=== PATIENT | female | born 1975 | race Caucasian/White ===

== ENCOUNTER 2017-10-14 12:44 | Emergency (ER) | payer MEDICAID ==
[2017-10-14] MEDS ORDERED: Sodium Chloride 0.9% 10 ML Syringe FLUSH PRN (14:10)
[2017-10-14] MEDS ORDERED: Iopamidol 612 MG/ML 100 ML Bottle IV PRN (14:10)
--- NOTE | 2017-10-14 14:14 | EDM.PDOC ---
ED HPI GENERAL MEDICAL PROBLEM - General Chief Complaint: Upper Extremity Injury/Pain Stated Complaint: LEFT NECK PAIN Time Seen by Provider: 10/14/17 13:00 Source of Information: Reports: Patient, Family History Limitations: Reports: No Limitations - History of Present Illness INITIAL COMMENTS - FREE TEXT/NARRATIVE: 42-year-old female who has been struggling with left anterior shoulder discomfort and swelling for the past month. It started when she was hyperflexing her shoulders and reaching across her chest when she felt a small sting in the left anterior shoulder. Since that time she has had persistent swelling and pain around the sternoclavicular joint on the left side extending up into the neck. No difficulty breathing. An x-ray of the left shoulder was normal at the clinic. She went to the chiropractor twice without relief. She called the clinic today to talk to them about her not improving and they sent her to the emergency room. She's had no redness, warmth, fever or ill feeling. Duration: Week(s): (4 weeks ago) Location: Reports: Chest (Left anterior chest and left shoulder) Severity: Moderate Worsens with: Reports: Movement Associated Symptoms: Reports: No Other Symptoms Left Shoulder Pain Score (Numeric/FACES): 7 - Related Data Allergies Allergy/AdvReac Type Severity Reaction Status Date / Time No Known Allergies Allergy Verified 11/28/15 11:40 Home Meds: Home Meds NK [No Known Home Meds] 11/28/15 [History] Past Medical History - Past Health History Medical/Surgical History: Denies Medical/Surgical History - Infectious Disease History Infectious Disease History: Reports: Chicken Pox - Past Surgical History Female Surgical History: Reports: Other (See Below) Other Female Surgeries/Procedures: past kidney failure with dialysis Social & Family History - Tobacco Use Smoking Status *Q: Never Smoker - Caffeine Use Caffeine Use: Reports: Soda - Alcohol Use Number of Drinks Per Day: 5 - Recreational Drug Use Recreational Drug Use: No Review of Systems - Review of Systems Review Of Systems: See Below Constitutional: Denies: Fever Respiratory: Denies: Shortness of Breath Cardiovascular: Reports: Chest Pain Musculoskeletal: Denies: Neck Pain Neurological: Reports: No Symptoms ED EXAM, GENERAL - Physical Exam Exam: See Below Exam Limited By: No Limitations General Appearance: Alert, No Apparent Distress, Other (Does display discomfort when moving her left arm) Head: Atraumatic Neck: Other (Slight amount of swelling noted over the distal left sternocleidomastoid area) Respiratory/Chest: No Respiratory Distress, Lungs Clear, Other (She has definite swelling and tenderness over the left sternoclavicular joint with tenderness extending down the medial aspect of the clavicle) Neurological: Alert, Oriented Skin Exam: Warm, Dry Course - Vital Signs Last Recorded V/S: Last Vital Signs Temp 99.9 F 10/14/17 12:54 Pulse 92 10/14/17 15:53 Resp 16 10/14/17 12:54 BP 138/93 H 10/14/17 15:53 Pulse Ox 98 10/14/17 15:53 - Orders/Labs/Meds Labs: Laboratory Tests 10/14/17 10/14/17 10/14/17 Range/Units 13:40 13:40 14:50 WBC 8.2 (4.5-11.0) K/uL RBC 4.16 (3.30-5.50) M/uL Hgb 12.7 D (12.0-15.0) g/dL Hct 38.2 (36.0-48.0) % MCV 92 (80-98) fL MCH 31 (27-31) pg MCHC 33 (32-36) % Plt Count 159 (150-400) K/uL Neut % (Auto) 69 H (36-66) % Lymph % (Auto) 18 L (24-44) % [place] % (Auto) 10 H (2-6) % Eos % (Auto) 3 (2-4) % Baso % (Auto) 1 (0-1) % Sodium 140 (140-148) mmol/L Potassium 3.7 (3.6-5.2) mmol/L Chloride 105 (100-108) mmol/L Carbon Dioxide 23 (21-32) mmol/L Anion Gap 12.2 (5.0-14.0) mmol/L BUN 16 (7-18) mg/dL Creatinine 0.9 (0.6-1.0) mg/dL Est Cr Clr Drug Dosing 71.78 mL/min Estimated GFR (MDRD) > 60 (>60) Glucose 104 (74-106) mg/dL Calcium 8.9 (8.5-10.1) mg/dL C-Reactive Protein 0.43 H (0.0-0.3) mg/dL Meds: Medications Discontinued Medications Generic Name Dose Route Start Last Admin Trade Name Lucia PRN Reason Stop Dose Admin Sodium Chloride 70 mls @ 3 mls/sec 10/14/17 14:10 10/14/17 14:32 Normal Saline IV 10/14/17 14:11 3 mls/sec ONETIME ONE Administration Iopamidol 100 ml 10/14/17 14:10 10/14/17 14:32 Isovue-300 (61%) IV 100 ml . DIRECTED PRN Administration RADIOLOGY EXAM Sodium Chloride 10 ml 10/14/17 14:10 10/14/17 14:24 Saline Flush FLUSH 10 ml ONETIME PRN Administration PER RADIOLOGY PROTOCOL - Re-Assessments/Exams Free Text/Narrative Re-Assessment/Exam: 10/14/17 15:43 CBC and BMP were obtained which were normal. This was followed by an IV enhanced contrast of the cervical soft tissue which revealed an erosive process of the sternoclavicular joint on the left side. This was discussed with her primary providers as well as Isak Zepeda of orthopedics and it was recommended she have an MRI of the area. Her CRP was 0.43, just slightly above normal. She was placed in a left arm sling which allowed her some comfort, and an MRI be ordered in the near future with results sent to both orthopedics and her primary care. Departure - Departure Time of Disposition: 15:52 Disposition: Home, Self-Care 01 Condition: Good Clinical Impression: Effusion of sternoclavicular joint - Discharge Information Instructions: Joint Pain, [id number] Referrals: Aureliano Pérez MD [Primary Care Provider] - Forms: ED Department Discharge Care Plan Goals: A regular dose of ibuprofen or naproxen would help if you are able to take these types of medications. Resting the shoulder in the sling may help and recheck after your MRI is obtained.
[2017-10-14 15:54] VITALS: BP 138/93
== END 2017-10-14 15:53 | disposition home or self-care (01) ==
LOC: JP.ED 12:44
DX: M25.412 Effusion, left shoulder (principal)
CPT/HCPCS: 36415; 70491; 80048; 85025; 86140; 99284; J7030; J7050; Q9967

== ENCOUNTER 2020-11-06 14:38 | Inpatient (IN) | payer MEDICAID ==
[2020-11-06] MEDS ORDERED: MVI, Adult with Vitamin K 10 ML, Thiamine 100 MG, Folic Acid 1 MG, Magnesium Sulfate 3 ... IV SCH ×5 (15:00)
--- NOTE | 2020-11-06 15:02 | EDM.PDOC ---
ED HPI GENERAL MEDICAL PROBLEM - General Chief Complaint: General Stated Complaint: MEDICAL VIA [facility] Time Seen by Provider: 11/06/20 14:45 Source of Information: Reports: Patient, EMS, Family, Old Records, RN History Limitations: Reports: Other (patient not able to provider any history currently.) - History of Present Illness INITIAL COMMENTS - FREE TEXT/NARRATIVE: 45 yo female with long standing alcohol abuse is brought in via EMS for altered LOC noted by family since she awoke today. Last drank yesterday afternoon. Has increased abdominal girth recently. Has unusual movement of her eyes today. No vomiting or fever. Not as alert as usual. 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 Onset: Today Onset Date: 11/06/20 Onset Time: 06:00 (first noticed at 0600h) Duration: Hour(s):, Constant Location: Reports: Head ( and eyes) Quality: Reports: Other (not reported) Severity: Severe Improves with: Reports: None Worsens with: Reports: Other (unsure, suspect alcohol abuse related) Context: Reports: Other (See HPI) Associated Symptoms: Reports: Confusion, Malaise. Denies: Diaphoresis, Fever/Chills, Nausea/Vomiting Treatments EX[employer]VATING [employer]OR: Reports: Other (see below) (none) - Related Data Allergies Allergy/AdvReac Type Severity Reaction Status Date / Time No Known Allergies Allergy Verified 11/06/20 14:51 Home Meds: Home Meds Omeprazole 20 mg PO DAILY 11/06/20 [History] Potassium Chloride [Klor-Con M20] 40 meq PO DAILY 11/06/20 [History] Past Medical History - Past Health History Medical/Surgical History: Denies Medical/Surgical History - Infectious Disease History Infectious Disease History: Reports: Chicken Pox - Past Surgical History Female Surgical History: Reports: Other (See Below) Other Female Surgeries/Procedures: past kidney failure with dialysis Social & Family History - Caffeine Use Caffeine Use: Reports: Soda ED ROS GENERAL - Review of Systems Review Of Systems: Unable To Obtain (due to altered LOC) Reason Not Obtained: altered LOC Constitutional: Reports: Malaise. Denies: Diaphoresis GI/Abdominal: Reports: Other (increased girth per ) Neurological: Reports: Other (eyes not moving normally) ED EXAM, GENERAL - Physical Exam Exam: See Below Exam Limited By: No Limitations General Appearance: Alert, WD/WN, Mild Distress Eye Exam: Bilateral Eye: EOMI (not able to follow commands) Ears: Normal External Exam, Normal Canal, Hearing Grossly Normal Ear Exam: Bilateral Ear: Auricle Normal, Canal Normal Nose: Normal Inspection, No Blood Throat/Mouth: Normal Oropharynx, Normal Voice, No Airway Compromise, Other (dry oral mucosa and lips) Head: Atraumatic, Normocephalic Neck: Normal Inspection Respiratory/Chest: No Respiratory Distress, Lungs Clear, Normal Breath Sounds, No Accessory Muscle Use Cardiovascular: Regular Rate, Rhythm, No Edema, Tachycardia GI/Abdominal: Distended, Other (? ascites) Back Exam: Normal Inspection. No: CVA Tenderness (R), CVA Tenderness (L) Extremities: Normal Inspection, Normal Range of Motion, Non-Tender, No Pedal Edema Neurological: Inattentive, Confused, Disoriented, Slow to Respond, Other (dysconjugate gaze noted). No: Alert, Oriented, CN II-XII Intact, Normal Cognition, Normal Gait Psychiatric: Flat Affect Skin Exam: Warm, Dry, Intact, Normal Color, No Rash Course - Vital Signs Text/Narrative:: Dr. Coley called @ 4797h Last Recorded V/S: Last Vital Signs Temp 36.6 C 11/06/20 14:56 Pulse 110 H 11/06/20 16:12 Resp 23 H 11/06/20 16:12 BP 150/94 H 11/06/20 16:12 Pulse Ox 93 L 11/06/20 16:12 - Orders/Labs/Meds Labs: Laboratory Tests 11/06/20 11/06/20 11/06/20 Range/Units 14:58 15:08 15:08 WBC 12.5 H (4.5-11.0) K/uL RBC 3.69 (3.30-5.50) M/uL Hgb 12.5 (12.0-15.0) g/dL Hct 37.0 (36.0-48.0) % MCV 100 H (80-98) fL MCH 34 H (27-31) pg MCHC 34 (32-36) % Plt Count 125 L (150-400) K/uL Sodium 141 (140-148) mmol/L Potassium 3.0 L (3.6-5.2) mmol/L Chloride 100 (100-108) mmol/L Carbon Dioxide 19 L (21-32) mmol/L Anion Gap 25.0 H (5.0-14.0) mmol/L BUN 27 H D (7-18) mg/dL Creatinine 1.3 H (0.6-1.0) mg/dL Est Cr Clr Drug Dosing 50.08 mL/min Estimated GFR (MDRD) 44 L (>60) Glucose 154 H (74-106) mg/dL Calcium 9.4 (8.5-10.1) mg/dL Magnesium (1.8-2.4) mg/dL Total Bilirubin 2.7 H D (0.2-1.0) mg/dL AST 102 H (15-37) U/L ALT 66 (12-78) U/L Alkaline Phosphatase 310 H (46-116) U/L Ammonia 29 (11-32) umol/L Total Protein 8.9 H (6.4-8.2) g/dL Albumin 2.8 L (3.4-5.0) g/dL Globulin 6.1 H (2.3-3.5) g/dL Albumin/Globulin Ratio 0.5 L (1.2-2.2) Ethyl Alcohol mg/dL 11/06/20 11/06/20 Range/Units 15:08 15:42 WBC (4.5-11.0) K/uL RBC (3.30-5.50) M/uL Hgb (12.0-15.0) g/dL Hct (36.0-48.0) % MCV (80-98) fL MCH (27-31) pg MCHC (32-36) % Plt Count (150-400) K/uL Sodium (140-148) mmol/L Potassium (3.6-5.2) mmol/L Chloride (100-108) mmol/L Carbon Dioxide (21-32) mmol/L Anion Gap (5.0-14.0) mmol/L BUN (7-18) mg/dL Creatinine (0.6-1.0) mg/dL Est Cr Clr Drug Dosing mL/min Estimated GFR (MDRD) (>60) Glucose (74-106) mg/dL Calcium (8.5-10.1) mg/dL Magnesium 2.0 (1.8-2.4) mg/dL Total Bilirubin (0.2-1.0) mg/dL AST (15-37) U/L ALT (12-78) U/L Alkaline Phosphatase (46-116) U/L Ammonia (11-32) umol/L Total Protein (6.4-8.2) g/dL Albumin (3.4-5.0) g/dL Globulin (2.3-3.5) g/dL Albumin/Globulin Ratio (1.2-2.2) Ethyl Alcohol < 3 mg/dL Meds: Medications Discontinued Medications Generic Name Dose Route Start Last Admin Trade Name Freq PRN Reason Stop Dose Admin Multivitamins/Minerals 10 ml/ 1,017.2 mls @ 500 mls/hr 11/06/20 15:15 11/06/20 15:53 Thiamine HCl 100 mg/ Folic IV 11/06/20 17:17 500 mls/hr Acid 1 mg/ Magnesium Sulfate 3 ASDIRECTED ONE Administration gm/ Sodium Chloride Potassium Chloride 20 meq/ 100 mls @ 50 mls/hr 11/06/20 15:37 11/06/20 15:54 Premix IV 11/06/20 17:36 50 mls/hr ONETIME ONE Administration Lorazepam 1 mg 11/06/20 15:38 11/06/20 15:55 Lorazepam 2 Mg/Ml Sdv IVPUSH 11/06/20 15:39 1 mg ONETIME ONE Administration - Radiology Interpretation Free Text/Narrative:: Head CT no contrast-IMPRESSION: No sign of acute injury to the brain. Mild diffuse cerebral and cerebellar atrophy, more prominent than expected for the patient`s age. Please note that all CT scans at this facility use dose modulation, iterative reconstruction, and/or weight-based dosing when appropriate to reduce radiation dose to as low as reasonably achievable. Dictated by Landon Madera MD @ 11/06/2020 4:39:[address] Results Date: 11/06/20 CT Results Time: 17:15 Departure - Departure Time of Disposition: 17:50 Disposition: Refer to Observation Condition: Fair Clinical Impression: Alcohol abuse, Alcoholic peripheral neuropathy, Mild dehydration Mental status alteration Qualifiers: Altered mental status type: delirium Qualified Code(s): R41.0 - Disorientation, unspecified Ascites Qualifiers: Ascites type: due to alcoholic cirrhosis Qualified Code(s): K70.31 - Alcoholic cirrhosis of liver with ascites - Discharge Information *PRESCRIPTION DRUG MONITORING PROGRAM REVIEWED*: Not Applicable *COPY OF PRESCRIPTION DRUG MONITORING REPORT IN PATIENT [place]: Not Applicable Referrals: PCP,None [Family Provider] - Forms: ED Department Discharge Sepsis Event Note (ED) - Focused Exam Vital Signs: Vital Signs Temp Pulse Resp BP Pulse Ox 11/06/20 16:12 110 H 23 H 150/94 H 93 L 11/06/20 15:48 108 H 22 H 170/113 H 11/06/20 15:33 106 H 23 H 170/102 H 11/06/20 15:18 111 H 19 170/102 H 11/06/20 15:03 114 H 22 H 164/104 H 95 11/06/20 14:56 36.6 C 108 H 19 152/97 H 97 11/06/20 14:48 120 H 24 H 152/97 H 96 11/06/20 14:38 36.6 C 126 H 26 H 156/102 H 94 L
[2020-11-06] MEDS ORDERED: MVI, Adult with Vitamin K 10 ML, Thiamine 100 MG, Folic Acid 1 MG, Magnesium Sulfate 3 ... IV ONE ×5 (15:15)
[2020-11-06] MEDS ORDERED: Potassium Chloride 20 MEQ in Premix Bag 1 BAG IV ONE (15:37)
[2020-11-06] MEDS ORDERED: LORazepam 2 MG/ML SDV IVPUSH ONE (15:38)
--- NOTE | 2020-11-06 16:42 | CRLCT ---
INDICATION: Neurologic change. Alcohol abuse. COMPARISON: None available. TECHNIQUE: CT examination of the head was performed with 3 mm thick axial and 2 millimeter thick sagittal and coronal sections without intravenous contrast. Images were obtained from the vertex of the skull through the skull base, and I examined the images with the brain and bone windows. Please note that all CT scans at this facility use dose modulation, iterative reconstruction, and/or weight-based dosing when appropriate to reduce radiation dose to as low as reasonably achievable. FINDINGS: : There is mild cerebral atrophy, with mild dilatation of the ventricles and sulci, more prominent than expected for the patient`s age. There is also mild cerebellar atrophy. The brain is otherwise normal in appearance for the patient`s age on today`s study, with no sign of mass lesion, mass effect, hemorrhage, or edema. The visualized portions of the orbits are normal in appearance. The visualized portions of the paranasal sinuses and mastoids are clear. The osseous structures are normal in their appearance with no sign of abnormality in the skull base or calvarium. IMPRESSION: No sign of acute injury to the brain. Mild diffuse cerebral and cerebellar atrophy, more prominent than expected for the patient`s age. Please note that all CT scans at this facility use dose modulation, iterative reconstruction, and/or weight-based dosing when appropriate to reduce radiation dose to as low as reasonably achievable. Dictated by Landon Madera MD @ 11/06/2020 4:39:[address] Landon Madera @ Nov 06 2020 4:39PM
--- NOTE | 2020-11-06 18:26 | PCM.HP.2 ---
H&P History of Present Illness - General Date of Service: 11/06/20 Admit Problem/Dx: Admission Diagnosis/Problem Admission Diagnosis/Problem Alcoholic hepatitis with ascites Source of Information: Family, Provider. No: Patient History Limitations: Reports: No Limitations - History of Present Illness Initial Comments - Free Text/Narative: CC: lethargic HPI: Crystal presents to the emergency room today after her found her unresponsive this morning. He reports that she was in her usual state of health last night at bedtime. I am not able to get any history from her because of confusion so history is gathered from her as well as emergency room personnel. Her does report that they have been ill lately with a flulike illness which includes upper respiratory symptoms, nausea and diarrhea. He reports that he was tested for Covid and this was negative. She has not been eating well for the last several days. She has not been drinking well either. He is not aware of any fevers. He does think that her abdomen has been more distended than usual. He does report that she has been drinking regular but this has been her usual amount of vodka. He was worried this morning that she may have had a seizure because her eyes seem to be pointed in different directions and she was very lethargic. He did not specifically see her shaking like she had a seizure. Work-up in the emergency room has revealed evidence for significant dehydration, acute kidney injury, hypokalemia and mild alcoholic hepatitis. The patient is more alert but still quite confused. She will be admitted for management of the above issues. - Related Data Allergies/Adverse Reactions: Allergies Allergy/AdvReac Type Severity Reaction Status Date / Time No Known Allergies Allergy Verified 11/06/20 14:51 Home Medications: Home Meds Omeprazole 20 mg PO DAILY 11/06/20 [History] Potassium Chloride [Klor-Con M20] 40 meq PO DAILY 11/06/20 [History] Past Medical History - Past Health History Medical/Surgical History: Denies Medical/Surgical History HEENT History: Reports: Impaired Vision Gastrointestinal History: Reports: GERD Psychiatric History: Reports: Addiction - Infectious Disease History Infectious Disease History: Reports: Chicken Pox - Past Surgical History Female Surgical History: Reports: Other (See Below) Other Female Surgeries/Procedures: past kidney failure with dialysis Social & Family History - Family History Family Medical History: Unobtainable (Patient very confused and does not answer) - Tobacco Use Tobacco Use Status *Q: Never Tobacco User - Caffeine Use Caffeine Use: Reports: None - Alcohol Use Days Per Week of Alcohol Use: 7 Number of Drinks Per Day: 5 Total Drinks Per Week: 35 Date of Last Drink: 11/05/20 Time of Last Drink: 16:00 - Recreational Drug Use Recreational Drug Use: No H&P Review of Systems - Review of Systems: Review Of Systems: Unable To Obtain Reason Not Obtained: Patient quite confused and unable to answer questions Exam - Exam Exam: See Below - Vital Signs Vital Signs: Last Vital Signs Temp 36.6 C 11/06/20 14:56 Pulse 110 H 11/06/20 16:12 Resp 23 H 11/06/20 16:12 BP 150/94 H 11/06/20 16:12 Pulse Ox 93 L 11/06/20 16:12 Weight: 83.915 kg - Exam Quality Assessment: Supplemental Oxygen General: Alert. No: Oriented, Cooperative, Mild Distress HEENT: Scleral Icterus (Mild). No: Conjunctiva Clear, Mucosa Moist & Cherry (Very dry) Neck: Supple, Trachea Midline Lungs: Clear to Auscultation, Normal Respiratory Effort Cardiovascular: Regular Rhythm, Tachycardia. No: Systolic Murmur GI/Abdominal Exam: Normal Bowel Sounds, Soft, Distended, Tender (Very mild generalized) Back Exam: Normal Inspection, Full Range of Motion Extremities: No Pedal Edema. No: Joint Swelling, Increased Warmth Peripheral Pulses: 2+: Dorsalis Pedis (L), Dorsalis Pedis (R) Skin: Warm, Dry. No: Rash Neuro Extensive - Mental Status: Alert, Memory Loss-Recent Events, Slow Response to Commands. No: Oriented x3 Neuro Extensive - Motor, Sensory, Reflexes: Dysarthria, Tremor (Tongue fasciculations), Other (No clonus). No: Abnormal Motor DTR: 1+: Bicep (L), Bicep (R), Patella (L), Patella (R) Psychiatric: Alert. No: Agitated - Patient Data Lab Results Last 24 hrs: Laboratory Results - last 24 hr 11/06/20 11/06/20 11/06/20 Range/Units 14:58 15:08 15:08 WBC 12.5 H (4.5-11.0) K/uL RBC 3.69 (3.30-5.50) M/uL Hgb 12.5 (12.0-15.0) g/dL Hct 37.0 (36.0-48.0) % MCV 100 H (80-98) fL MCH 34 H (27-31) pg MCHC 34 (32-36) % Plt Count 125 L (150-400) K/uL Sodium 141 (140-148) mmol/L Potassium 3.0 L (3.6-5.2) mmol/L Chloride 100 (100-108) mmol/L Carbon Dioxide 19 L (21-32) mmol/L Anion Gap 25.0 H (5.0-14.0) mmol/L BUN 27 H D (7-18) mg/dL Creatinine 1.3 H (0.6-1.0) mg/dL Est Cr Clr Drug Dosing 50.08 mL/min Estimated GFR (MDRD) 44 L (>60) Glucose 154 H (74-106) mg/dL Calcium 9.4 (8.5-10.1) mg/dL Magnesium (1.8-2.4) mg/dL Total Bilirubin 2.7 H D (0.2-1.0) mg/dL AST 102 H (15-37) U/L ALT 66 (12-78) U/L Alkaline Phosphatase 310 H (46-116) U/L Ammonia 29 (11-32) umol/L Total Protein 8.9 H (6.4-8.2) g/dL Albumin 2.8 L (3.4-5.0) g/dL Globulin 6.1 H (2.3-3.5) g/dL Albumin/Globulin Ratio 0.5 L (1.2-2.2) Ethyl Alcohol mg/dL 11/06/20 11/06/20 Range/Units 15:08 15:42 WBC (4.5-11.0) K/uL RBC (3.30-5.50) M/uL Hgb (12.0-15.0) g/dL Hct (36.0-48.0) % MCV (80-98) fL MCH (27-31) pg MCHC (32-36) % Plt Count (150-400) K/uL Sodium (140-148) mmol/L Potassium (3.6-5.2) mmol/L Chloride (100-108) mmol/L Carbon Dioxide (21-32) mmol/L Anion Gap (5.0-14.0) mmol/L BUN (7-18) mg/dL Creatinine (0.6-1.0) mg/dL Est Cr Clr Drug Dosing mL/min Estimated GFR (MDRD) (>60) Glucose (74-106) mg/dL Calcium (8.5-10.1) mg/dL Magnesium 2.0 (1.8-2.4) mg/dL Total Bilirubin (0.2-1.0) mg/dL AST (15-37) U/L ALT (12-78) U/L Alkaline Phosphatase (46-116) U/L Ammonia (11-32) umol/L Total Protein (6.4-8.2) g/dL Albumin (3.4-5.0) g/dL Globulin (2.3-3.5) g/dL Albumin/Globulin Ratio (1.2-2.2) Ethyl Alcohol < 3 mg/dL Result Diagrams: 11/06/20 15:08 11/06/20 15:08 Imaging Impressions Last 24 hrs: Head CT-images personally reviewed-there is mild atrophy and mild dilation of th e ventricles which is slightly greater than expected for the patient's age but no acute findings such as mass, stroke or bleed. Sepsis Event Note - Evaluation Sepsis Screening Result: No Definite Risk - Focused Exam Vital Signs: Vital Signs Temp Pulse Resp BP Pulse Ox 11/06/20 16:12 110 H 23 H 150/94 H 93 L 11/06/20 15:48 108 H 22 H 170/113 H 11/06/20 15:33 106 H 23 H 170/102 H 11/06/20 15:18 111 H 19 170/102 H 11/06/20 15:03 114 H 22 H 164/104 H 95 11/06/20 14:56 36.6 C 108 H 19 152/97 H 97 11/06/20 14:48 120 H 24 H 152/97 H 96 11/06/20 14:38 36.6 C 126 H 26 H 156/102 H 94 L *Q Meaningful Use (ADM) - VTE Risk Assess *Q Each Risk Factor Represents 1 Point: Age 41 - 59 years, Obesity ( BMI > 25 kg/m2) Total Score 1 Point Risk Factors: 2 Each Risk Factor Represents 2 Points: None Total Score 2 Point Risk Factors: 0 Each Risk Factor Represents 3 Points: None Total Score 3 Point Risk Factors: 0 Each Risk Factor Represents 5 Points: None Total Score 5 Point Risk Factors: 0 Venous Thromboembolism Risk Factor Score *Q: 2 - Problem List (1) Alcoholic hepatitis with ascites SNOMED Code(s): 5687022919292162 ICD Code: K70.11 - ALCOHOLIC HEPATITIS WITH ASCITES Status: Acute Current Visit: Yes (2) Acute kidney injury SNOMED Code(s): 75005957, 97339611 ICD Code: N17.9 - ACUTE KIDNEY FAILURE, UNSPECIFIED Status: Acute Current Visit: Yes (3) Acute hypoactive delirium due to another medical condition SNOMED Code(s): 7902545, 500718610, [id number] ICD Code: F05 - DELIRIUM DUE TO KNOWN PHYSIOLOGICAL CONDITION Status: Acute Current Visit: Yes (4) Hypokalemia SNOMED Code(s): 62176436 ICD Code: E87.6 - HYPOKALEMIA Status: Acute Current Visit: Yes Problem List Initiated/Reviewed/Updated: Yes Orders Last 24hrs: Active Orders 24 hr Category Date Time Status Patient Status Manage Transfer [TRANSFER] Routine ADT 11/06/20 18:17 Ordered Resuscitation Status Routine Resus Stat 11/06/20 18:19 Ordered Assessment/Plan Comment:: ASSESSMENT AND PLAN - Alcoholic hepatitis with ascites-seems to be mild at this time. Ammonia is normal. History of hepatic failure and did require dialysis at that time. Continues to drink regularly. Not severe enough for steroids at this time. -Abdominal ultrasound in the morning -Repeat labs in the morning -Additional management as below Alcohol abuse-persistent heavy use despite previous liver problems. I suspect that alcohol is contributing at least to some extent to her confusion and this could be Wernicke's or potentially Korsakoff syndrome. No strong evidence for alcohol withdrawal at this time but she is at a high risk given her daily use of vodka with large quantities. -Supplement thiamine and folate -INR in the morning -close monitoring for alcohol withdrawal Hypoactive delirium-probably multifactorial. She has a chronic daily alcohol user. No evidence for infection so far. Head CT showed some atrophy but nothing impressive. Examination benign other than the confusion. Not she is quite dehydrated. -Covid screen given potential symptoms -Urinalysis, culture if indicated -Optimize electrolytes and hydrate -Supplement thiamine and folate as above -TSH Hypokalemia-poor intake recently and also has had diarrhea. This is in addition to her alcohol use. -40 mEq IV piggyback this evening -Normal saline with potassium overnight -Labs in the morning Maintenance issues - -DVT prophylaxis-mechanical -GI prophylaxis-PPI -Nutrition-n.p.o. after midnight for ultrasound in the morning then low-sodium diet -Bates catheter-not indicated CODE STATUS -full code Admission justification -this patient will be admitted for inpatient services and is medically appropriate meeting medical necessity for inpatient admission as outlined in my documentation. I reasonably expect the patient will require inpatient services that span a period time over 2 midnights. I reasonably expect this patient to be discharged or transferred within 96 hours [facility]. Disposition -I anticipate discharge home after the hospital stay Primary care physician - Jack Coley M.D. - Mortality Measure Prognosis:: Poor
[2020-11-06] MEDS ORDERED: Magnesium Hydroxide 400 MG/5 ML Susp 30 ML Cup PO PRN (18:39)
[2020-11-06] MEDS ORDERED: LORazepam 1 MG Tab PO SCH (18:39)
[2020-11-06] MEDS ORDERED: Acetaminophen 325 MG Tab PO PRN (18:39)
[2020-11-06] MEDS ORDERED: Ondansetron 4 MG/2 ML SDV IV PRN (18:39)
[2020-11-06] MEDS ORDERED: LORazepam 2 MG/ML SDV IVPUSH PRN (18:39)
[2020-11-06] MEDS ORDERED: LORazepam 2 MG/ML SDV IV SCH (18:39)
[2020-11-06] MEDS ORDERED: Ondansetron 4 MG Tab.DIS PO PRN (18:39)
[2020-11-06 19:22] LABS: CORONAVIRUS COVID-19 NAA NEGATIVE (NEGATIVE)
[2020-11-06] MEDS: Potassium Chloride 100 ML IV SCH ×2 (19:46→21:22)
[2020-11-06] MEDS: Lidocaine 1% 20 ML MDV SCH ×2 (19:46→21:23)
[2020-11-06] MEDS: NS + KCl 20mEq/L 1,000 ML IV SCH (19:47)
[2020-11-06] MEDS: Melatonin 3 MG Tab PO SCH (21:23)
[2020-11-07] MEDS: NS + KCl 20mEq/L 1,000 ML IV SCH ×2 (03:57→15:20)
[2020-11-07] MEDS: Pantoprazole 40 MG Tab.CR PO SCH ×2 (08:26→16:47)
[2020-11-07] MEDS: cefTRIAXone 1 GM in Sodium Chloride 0.9% 50 ML IV SCH (08:27)
[2020-11-07] MEDS: Thiamine 100 MG Tab PO SCH (08:27)
[2020-11-07] MEDS: Folic Acid 1 MG Tab PO SCH (08:27)
--- NOTE | 2020-11-07 09:16 | PCM.PN ---
- General Info Date of Service: 11/07/20 Subjective Update: There were no acute events overnight and initially the patient was more clear and interactive today. Unfortunately as the morning progressed she became paranoid and was hallucinating. She developed tongue fasciculations and a fine tremor. These all seem to be consistent with alcohol withdrawal. Initially she reported she was feeling better but did not remember much of yesterday. She is not complaining of nausea or shortness of breath. Laboratory studies have all improved compared to yesterday. Functional Status: Reports: Pain Controlled - Review of Systems General: Denies: Fever Neurological: Reports: Confusion - Patient Data Vitals - Most Recent: Last Vital Signs Temp 37.3 C 11/07/20 08:00 Pulse 110 H 11/06/20 16:12 Resp 18 11/07/20 08:00 BP 119/72 11/07/20 08:00 Pulse Ox 90 L 11/07/20 08:00 Weight - Most Recent: 78.6 kg I&O - Last 24 Hours: Intake & Output 11/06/20 11/07/20 11/07/20 22:59 06:59 14:59 Intake Total 1094 Balance 1094 Lab Results Last 24 Hours: Laboratory Results - last 24 hr 11/06/20 11/06/20 11/06/20 Range/Units 14:58 15:08 15:08 WBC 12.5 H (4.5-11.0) K/uL RBC 3.69 (3.30-5.50) M/uL Hgb 12.5 (12.0-15.0) g/dL Hct 37.0 (36.0-48.0) % MCV 100 H (80-98) fL MCH 34 H (27-31) pg MCHC 34 (32-36) % Plt Count 125 L (150-400) K/uL PT (9.5-12.0) sec INR (0.80-1.20) Sodium 141 (140-148) mmol/L Potassium 3.0 L (3.6-5.2) mmol/L Chloride 100 (100-108) mmol/L Carbon Dioxide 19 L (21-32) mmol/L Anion Gap 25.0 H (5.0-14.0) mmol/L BUN 27 H D (7-18) mg/dL Creatinine 1.3 H (0.6-1.0) mg/dL Est Cr Clr Drug Dosing 50.08 mL/min Estimated GFR (MDRD) 44 L (>60) Glucose 154 H (74-106) mg/dL Calcium 9.4 (8.5-10.1) mg/dL Magnesium (1.8-2.4) mg/dL Total Bilirubin 2.7 H D (0.2-1.0) mg/dL AST 102 H (15-37) U/L ALT 66 (12-78) U/L Alkaline Phosphatase 310 H (46-116) U/L Ammonia 29 (11-32) umol/L Total Protein 8.9 H (6.4-8.2) g/dL Albumin 2.8 L (3.4-5.0) g/dL Globulin 6.1 H (2.3-3.5) g/dL Albumin/Globulin Ratio 0.5 L (1.2-2.2) TSH, Ultra Sensitive (0.358-3.740) uIU/mL Urine Color (YELLOW) Urine Appearance (CLEAR) Urine pH (5.0-8.0) Ur Specific Emerson (1.008-1.030) Urine Protein (NEGATIVE) mg/dL Urine Glucose (UA) (NEGATIVE) mg/dL Urine Ketones (NEGATIVE) mg/dL Urine Occult Blood (NEGATIVE) Urine Nitrite (NEGATIVE) Urine Bilirubin (NEGATIVE) Urine Urobilinogen (0.2-1.0) EU/dL Ur Leukocyte Esterase (NEGATIVE) Urine RBC (0-5) Urine WBC (0-5) Ur Epithelial Cells Amorphous Sediment Urine Bacteria Urine Mucus Ethyl Alcohol mg/dL Influenza Type A RNA (NEGATIVE) RSV RNA (INAAT) (NEGATIVE) Influenza Type B RNA (NEGATIVE) SARS-CoV-2 RNA (GILLIAN) (NEGATIVE) 11/06/20 11/06/20 11/06/20 Range/Units 15:08 15:42 18:50 WBC (4.5-11.0) K/uL RBC (3.30-5.50) M/uL Hgb (12.0-15.0) g/dL Hct (36.0-48.0) % MCV (80-98) fL MCH (27-31) pg MCHC (32-36) % Plt Count (150-400) K/uL PT (9.5-12.0) sec INR (0.80-1.20) Sodium (140-148) mmol/L Potassium (3.6-5.2) mmol/L Chloride (100-108) mmol/L Carbon Dioxide (21-32) mmol/L Anion Gap (5.0-14.0) mmol/L BUN (7-18) mg/dL Creatinine (0.6-1.0) mg/dL Est Cr Clr Drug Dosing mL/min Estimated GFR (MDRD) (>60) Glucose (74-106) mg/dL Calcium (8.5-10.1) mg/dL Magnesium 2.0 (1.8-2.4) mg/dL Total Bilirubin (0.2-1.0) mg/dL AST (15-37) U/L ALT (12-78) U/L Alkaline Phosphatase (46-116) U/L Ammonia (11-32) umol/L Total Protein (6.4-8.2) g/dL Albumin (3.4-5.0) g/dL Globulin (2.3-3.5) g/dL Albumin/Globulin Ratio (1.2-2.2) TSH, Ultra Sensitive (0.358-3.740) uIU/mL Urine Color (YELLOW) Urine Appearance (CLEAR) Urine pH (5.0-8.0) Ur Specific Emerson (1.008-1.030) Urine Protein (NEGATIVE) mg/dL Urine Glucose (UA) (NEGATIVE) mg/dL Urine Ketones (NEGATIVE) mg/dL Urine Occult Blood (NEGATIVE) Urine Nitrite (NEGATIVE) Urine Bilirubin (NEGATIVE) Urine Urobilinogen (0.2-1.0) EU/dL Ur Leukocyte Esterase (NEGATIVE) Urine RBC (0-5) Urine WBC (0-5) Ur Epithelial Cells Amorphous Sediment Urine Bacteria Urine Mucus Ethyl Alcohol < 3 mg/dL Influenza Type A RNA Negative (NEGATIVE) RSV RNA (INAAT) Negative (NEGATIVE) Influenza Type B RNA Negative (NEGATIVE) SARS-CoV-2 RNA (GILLIAN) Negative (NEGATIVE) 11/07/20 11/07/20 11/07/20 Range/Units 01:45 04:40 04:40 WBC 11.3 H (4.5-11.0) K/uL RBC 3.15 L (3.30-5.50) M/uL Hgb 10.5 L D (12.0-15.0) g/dL Hct 32.9 L (36.0-48.0) % MCV 104 H (80-98) fL MCH 33 H (27-31) pg MCHC 32 (32-36) % Plt Count 103 L (150-400) K/uL PT 13.4 H (9.5-12.0) sec INR 1.23 H (0.80-1.20) Sodium (140-148) mmol/L Potassium (3.6-5.2) mmol/L Chloride (100-108) mmol/L Carbon Dioxide (21-32) mmol/L Anion Gap (5.0-14.0) mmol/L BUN (7-18) mg/dL Creatinine (0.6-1.0) mg/dL Est Cr Clr Drug Dosing mL/min Estimated GFR (MDRD) (>60) Glucose (74-106) mg/dL Calcium (8.5-10.1) mg/dL Magnesium (1.8-2.4) mg/dL Total Bilirubin (0.2-1.0) mg/dL AST (15-37) U/L ALT (12-78) U/L Alkaline Phosphatase (46-116) U/L Ammonia (11-32) umol/L Total Protein (6.4-8.2) g/dL Albumin (3.4-5.0) g/dL Globulin (2.3-3.5) g/dL Albumin/Globulin Ratio (1.2-2.2) TSH, Ultra Sensitive (0.358-3.740) uIU/mL Urine Color [place] A (YELLOW) Urine Appearance Cloudy A (CLEAR) Urine pH 6.5 (5.0-8.0) Ur Specific Emerson 1.025 (1.008-1.030) Urine Protein Negative (NEGATIVE) mg/dL Urine Glucose (UA) Negative (NEGATIVE) mg/dL Urine Ketones Trace H (NEGATIVE) mg/dL Urine Occult Blood Negative (NEGATIVE) Urine Nitrite Negative (NEGATIVE) Urine Bilirubin Moderate H (NEGATIVE) Urine Urobilinogen >=8.0 H (0.2-1.0) EU/dL Ur Leukocyte Esterase Small H (NEGATIVE) Urine RBC 0-5 (0-5) Urine WBC 20-30 H (0-5) Ur Epithelial Cells Few Amorphous Sediment Not seen Urine Bacteria Many Urine Mucus Not seen Ethyl Alcohol mg/dL Influenza Type A RNA (NEGATIVE) RSV RNA (INAAT) (NEGATIVE) Influenza Type B RNA (NEGATIVE) SARS-CoV-2 RNA (GILLIAN) (NEGATIVE) 11/07/20 11/07/20 Range/Units 04:40 04:40 WBC (4.5-11.0) K/uL RBC (3.30-5.50) M/uL Hgb (12.0-15.0) g/dL Hct (36.0-48.0) % MCV (80-98) fL MCH (27-31) pg MCHC (32-36) % Plt Count (150-400) K/uL PT (9.5-12.0) sec INR (0.80-1.20) Sodium 146 (140-148) mmol/L Potassium 3.8 (3.6-5.2) mmol/L Chloride 108 (100-108) mmol/L Carbon Dioxide 27 (21-32) mmol/L Anion Gap 10.6 (5.0-14.0) mmol/L BUN 24 H (7-18) mg/dL Creatinine 0.8 (0.6-1.0) mg/dL Est Cr Clr Drug Dosing 81.38 mL/min Estimated GFR (MDRD) > 60 (>60) Glucose 112 H (74-106) mg/dL Calcium 8.6 (8.5-10.1) mg/dL Magnesium (1.8-2.4) mg/dL Total Bilirubin 2.0 H (0.2-1.0) mg/dL AST 85 H (15-37) U/L ALT 55 (12-78) U/L Alkaline Phosphatase 246 H (46-116) U/L Ammonia 18 (11-32) umol/L Total Protein 7.4 (6.4-8.2) g/dL Albumin 2.3 L (3.4-5.0) g/dL Globulin 5.1 H (2.3-3.5) g/dL Albumin/Globulin Ratio 0.5 L (1.2-2.2) TSH, Ultra Sensitive 3.240 (0.358-3.740) uIU/mL Urine Color (YELLOW) Urine Appearance (CLEAR) Urine pH (5.0-8.0) Ur Specific Emerson (1.008-1.030) Urine Protein (NEGATIVE) mg/dL Urine Glucose (UA) (NEGATIVE) mg/dL Urine Ketones (NEGATIVE) mg/dL Urine Occult Blood (NEGATIVE) Urine Nitrite (NEGATIVE) Urine Bilirubin (NEGATIVE) Urine Urobilinogen (0.2-1.0) EU/dL Ur Leukocyte Esterase (NEGATIVE) Urine RBC (0-5) Urine WBC (0-5) Ur Epithelial Cells Amorphous Sediment Urine Bacteria Urine Mucus Ethyl Alcohol mg/dL Influenza Type A RNA (NEGATIVE) RSV RNA (INAAT) (NEGATIVE) Influenza Type B RNA (NEGATIVE) SARS-CoV-2 RNA (GILLIAN) (NEGATIVE) Med Orders - Current: Current Medications Acetaminophen (Acetaminophen 325 Mg Tab) 650 mg PO Q4H PRN PRN Reason: Pain (Mild 1-3)/fever Folic Acid (Folic Acid 1 Mg Tab) 1 mg PO DAILY [facility] Last Admin: 11/07/20 08:27 Dose: 1 mg Documented by: Ceftriaxone Sodium 1 gm/ (Sodium Chloride) 50 mls @ 100 mls/hr IV Q24H [facility] Last Admin: 11/07/20 08:27 Dose: 100 mls/hr Documented by: Lorazepam (Lorazepam 2 Mg/Ml Sdv) 0.5 mg IVPUSH Q4H PRN PRN Reason: Nausea/Vomiting Magnesium Hydroxide (Magnesium Hydroxide 400 Mg/5 Ml Susp 30 Ml Cup) 30 ml PO Q12H PRN PRN Reason: Constipation Melatonin (Melatonin 3 Mg Tab) 9 mg PO BEDTIME [facility] Last Admin: 11/06/20 21:23 Dose: 9 mg Documented by: Ondansetron HCl (Ondansetron 4 Mg/2 Ml Sdv) 4 mg IV Q6H PRN PRN Reason: Nausea/Vomiting Last Admin: 11/06/20 18:50 Dose: 4 mg Documented by: Ondansetron HCl (Ondansetron 4 Mg Tab.Dis) 4 mg PO Q6H PRN PRN Reason: Nausea able to take PO Pantoprazole Sodium (Pantoprazole 40 Mg Tab.Cr) 40 mg PO BIDAC [facility] Last Admin: 11/07/20 08:26 Dose: 40 mg Documented by: Senna/Docusate Sodium (Docusate Sodium/Sennosides 50-8.6 Mg Tab) 1 tab PO BID PRN PRN Reason: Constipation Thiamine HCl (Thiamine 100 Mg Tab) 100 mg PO DAILY GREGORIO Last Admin: 11/07/20 08:27 Dose: 100 mg Documented by: Discontinued Medications Multivitamins/Minerals 10 ml/Thiamine HCl 100 mg/ Folic Acid 1 mg/ Magnesium Sulfate 3 gm/ Sodium Chloride 1,017.2 mls @ 500 mls/hr IV ASDIRECTED ONE Stop: 11/06/20 17:17 Last Admin: 11/06/20 15:53 Dose: 500 mls/hr Documented by: Potassium Chloride 20 meq/ (Premix) 100 mls @ 50 mls/hr IV ONETIME ONE Stop: 11/06/20 17:36 Last Admin: 11/06/20 15:54 Dose: 50 mls/hr Documented by: Potassium Chloride (Kcl In Water 20 Meq/100 Ml) 100 mls @ 50 mls/hr IV Q2H GREGORIO Stop: 11/06/20 22:59 Last Admin: 11/06/20 21:22 Dose: 50 mls/hr Documented by: Potassium Chloride/Sodium Chloride (Normal Saline With 20 Meq Kcl) 1,000 mls @ 100 mls/hr IV ASDIRECTED GREGORIO Last Admin: 11/07/20 03:57 Dose: 100 mls/hr Documented by: Lidocaine HCl (Lidocaine 1% 20 Ml Mdv) 2 ml .XX Q2H GREGORIO Stop: 11/06/20 21:01 Last Admin: 11/06/20 21:23 Dose: 2 ml Documented by: Lorazepam (Lorazepam 2 Mg/Ml Sdv) 1 mg IVPUSH ONETIME ONE Stop: 11/06/20 15:39 Last Admin: 11/06/20 15:55 Dose: 1 mg Documented by: Lorazepam (Lorazepam 1 Mg Tab) 0 mg PO ASDIRECTED GREGORIO; Protocol Lorazepam (Lorazepam 2 Mg/Ml Sdv) 0 mg IV ASDIRECTED RGEGORIO; Protocol - Exam Quality Assessment: Supplemental Oxygen General: Alert, Cooperative, No Acute Distress. No: Oriented HEENT: Pupils Equal Neck: Supple, Trachea Midline Lungs: Normal Respiratory Effort. No: Wheezing Cardiovascular: Regular Rhythm, Tachycardia GI/Abdominal Exam: Soft, Non-Tender Extremities: No Pedal Edema. No: Increased Warmth Skin: Warm, Dry Psy/Mental Status: Alert, Normal Affect. No: Agitated - Patient Data Lab Results Last 24 hrs: Laboratory Results - last 24 hr 11/06/20 11/06/20 11/06/20 Range/Units 14:58 15:08 15:08 WBC 12.5 H (4.5-11.0) K/uL RBC 3.69 (3.30-5.50) M/uL Hgb 12.5 (12.0-15.0) g/dL Hct 37.0 (36.0-48.0) % MCV 100 H (80-98) fL MCH 34 H (27-31) pg MCHC 34 (32-36) % Plt Count 125 L (150-400) K/uL PT (9.5-12.0) sec INR (0.80-1.20) Sodium 141 (140-148) mmol/L Potassium 3.0 L (3.6-5.2) mmol/L Chloride 100 (100-108) mmol/L Carbon Dioxide 19 L (21-32) mmol/L Anion Gap 25.0 H (5.0-14.0) mmol/L BUN 27 H D (7-18) mg/dL Creatinine 1.3 H (0.6-1.0) mg/dL Est Cr Clr Drug Dosing 50.08 mL/min Estimated GFR (MDRD) 44 L (>60) Glucose 154 H (74-106) mg/dL Calcium 9.4 (8.5-10.1) mg/dL Magnesium (1.8-2.4) mg/dL Total Bilirubin 2.7 H D (0.2-1.0) mg/dL AST 102 H (15-37) U/L ALT 66 (12-78) U/L Alkaline Phosphatase 310 H (46-116) U/L Ammonia 29 (11-32) umol/L Total Protein 8.9 H (6.4-8.2) g/dL Albumin 2.8 L (3.4-5.0) g/dL Globulin 6.1 H (2.3-3.5) g/dL Albumin/Globulin Ratio 0.5 L (1.2-2.2) TSH, Ultra Sensitive (0.358-3.740) uIU/mL Urine Color (YELLOW) Urine Appearance (CLEAR) Urine pH (5.0-8.0) Ur Specific Emerson (1.008-1.030) Urine Protein (NEGATIVE) mg/dL Urine Glucose (UA) (NEGATIVE) mg/dL Urine Ketones (NEGATIVE) mg/dL Urine Occult Blood (NEGATIVE) Urine Nitrite (NEGATIVE) Urine Bilirubin (NEGATIVE) Urine Urobilinogen (0.2-1.0) EU/dL Ur Leukocyte Esterase (NEGATIVE) Urine RBC (0-5) Urine WBC (0-5) Ur Epithelial Cells Amorphous Sediment Urine Bacteria Urine Mucus Ethyl Alcohol mg/dL Influenza Type A RNA (NEGATIVE) RSV RNA (INAAT) (NEGATIVE) Influenza Type B RNA (NEGATIVE) SARS-CoV-2 RNA (GILLIAN) (NEGATIVE) 11/06/20 11/06/20 11/06/20 Range/Units 15:08 15:42 18:50 WBC (4.5-11.0) K/uL RBC (3.30-5.50) M/uL Hgb (12.0-15.0) g/dL Hct (36.0-48.0) % MCV (80-98) fL MCH (27-31) pg MCHC (32-36) % Plt Count (150-400) K/uL PT (9.5-12.0) sec INR (0.80-1.20) Sodium (140-148) mmol/L Potassium (3.6-5.2) mmol/L Chloride (100-108) mmol/L Carbon Dioxide (21-32) mmol/L Anion Gap (5.0-14.0) mmol/L BUN (7-18) mg/dL Creatinine (0.6-1.0) mg/dL Est Cr Clr Drug Dosing mL/min Estimated GFR (MDRD) (>60) Glucose (74-106) mg/dL Calcium (8.5-10.1) mg/dL Magnesium 2.0 (1.8-2.4) mg/dL Total Bilirubin (0.2-1.0) mg/dL AST (15-37) U/L ALT (12-78) U/L Alkaline Phosphatase (46-116) U/L Ammonia (11-32) umol/L Total Protein (6.4-8.2) g/dL Albumin (3.4-5.0) g/dL Globulin (2.3-3.5) g/dL Albumin/Globulin Ratio (1.2-2.2) TSH, Ultra Sensitive (0.358-3.740) uIU/mL Urine Color (YELLOW) Urine Appearance (CLEAR) Urine pH (5.0-8.0) Ur Specific Emerson (1.008-1.030) Urine Protein (NEGATIVE) mg/dL Urine Glucose (UA) (NEGATIVE) mg/dL Urine Ketones (NEGATIVE) mg/dL Urine Occult Blood (NEGATIVE) Urine Nitrite (NEGATIVE) Urine Bilirubin (NEGATIVE) Urine Urobilinogen (0.2-1.0) EU/dL Ur Leukocyte Esterase (NEGATIVE) Urine RBC (0-5) Urine WBC (0-5) Ur Epithelial Cells Amorphous Sediment Urine Bacteria Urine Mucus Ethyl Alcohol < 3 mg/dL Influenza Type A RNA Negative (NEGATIVE) RSV RNA (INAAT) Negative (NEGATIVE) Influenza Type B RNA Negative (NEGATIVE) SARS-CoV-2 RNA (GILLIAN) Negative (NEGATIVE) 11/07/20 11/07/20 11/07/20 Range/Units 01:45 04:40 04:40 WBC 11.3 H (4.5-11.0) K/uL RBC 3.15 L (3.30-5.50) M/uL Hgb 10.5 L D (12.0-15.0) g/dL Hct 32.9 L (36.0-48.0) % MCV 104 H (80-98) fL MCH 33 H (27-31) pg MCHC 32 (32-36) % Plt Count 103 L (150-400) K/uL PT 13.4 H (9.5-12.0) sec INR 1.23 H (0.80-1.20) Sodium (140-148) mmol/L Potassium (3.6-5.2) mmol/L Chloride (100-108) mmol/L Carbon Dioxide (21-32) mmol/L Anion Gap (5.0-14.0) mmol/L BUN (7-18) mg/dL Creatinine (0.6-1.0) mg/dL Est Cr Clr Drug Dosing mL/min Estimated GFR (MDRD) (>60) Glucose (74-106) mg/dL Calcium (8.5-10.1) mg/dL Magnesium (1.8-2.4) mg/dL Total Bilirubin (0.2-1.0) mg/dL AST (15-37) U/L ALT (12-78) U/L Alkaline Phosphatase (46-116) U/L Ammonia (11-32) umol/L Total Protein (6.4-8.2) g/dL Albumin (3.4-5.0) g/dL Globulin (2.3-3.5) g/dL Albumin/Globulin Ratio (1.2-2.2) TSH, Ultra Sensitive (0.358-3.740) uIU/mL Urine Color [place] A (YELLOW) Urine Appearance Cloudy A (CLEAR) Urine pH 6.5 (5.0-8.0) Ur Specific Emerson 1.025 (1.008-1.030) Urine Protein Negative (NEGATIVE) mg/dL Urine Glucose (UA) Negative (NEGATIVE) mg/dL Urine Ketones Trace H (NEGATIVE) mg/dL Urine Occult Blood Negative (NEGATIVE) Urine Nitrite Negative (NEGATIVE) Urine Bilirubin Moderate H (NEGATIVE) Urine Urobilinogen >=8.0 H (0.2-1.0) EU/dL Ur Leukocyte Esterase Small H (NEGATIVE) Urine RBC 0-5 (0-5) Urine WBC 20-30 H (0-5) Ur Epithelial Cells Few Amorphous Sediment Not seen Urine Bacteria Many Urine Mucus Not seen Ethyl Alcohol mg/dL Influenza Type A RNA (NEGATIVE) RSV RNA (INAAT) (NEGATIVE) Influenza Type B RNA (NEGATIVE) SARS-CoV-2 RNA (GILLIAN) (NEGATIVE) 11/07/20 11/07/20 Range/Units 04:40 04:40 WBC (4.5-11.0) K/uL RBC (3.30-5.50) M/uL Hgb (12.0-15.0) g/dL Hct (36.0-48.0) % MCV (80-98) fL MCH (27-31) pg MCHC (32-36) % Plt Count (150-400) K/uL PT (9.5-12.0) sec INR (0.80-1.20) Sodium 146 (140-148) mmol/L Potassium 3.8 (3.6-5.2) mmol/L Chloride 108 (100-108) mmol/L Carbon Dioxide 27 (21-32) mmol/L Anion Gap 10.6 (5.0-14.0) mmol/L BUN 24 H (7-18) mg/dL Creatinine 0.8 (0.6-1.0) mg/dL Est Cr Clr Drug Dosing 81.38 mL/min Estimated GFR (MDRD) > 60 (>60) Glucose 112 H (74-106) mg/dL Calcium 8.6 (8.5-10.1) mg/dL Magnesium (1.8-2.4) mg/dL Total Bilirubin 2.0 H (0.2-1.0) mg/dL AST 85 H (15-37) U/L ALT 55 (12-78) U/L Alkaline Phosphatase 246 H (46-116) U/L Ammonia 18 (11-32) umol/L Total Protein 7.4 (6.4-8.2) g/dL Albumin 2.3 L (3.4-5.0) g/dL Globulin 5.1 H (2.3-3.5) g/dL Albumin/Globulin Ratio 0.5 L (1.2-2.2) TSH, Ultra Sensitive 3.240 (0.358-3.740) uIU/mL Urine Color (YELLOW) Urine Appearance (CLEAR) Urine pH (5.0-8.0) Ur Specific Emerson (1.008-1.030) Urine Protein (NEGATIVE) mg/dL Urine Glucose (UA) (NEGATIVE) mg/dL Urine Ketones (NEGATIVE) mg/dL Urine Occult Blood (NEGATIVE) Urine Nitrite (NEGATIVE) Urine Bilirubin (NEGATIVE) Urine Urobilinogen (0.2-1.0) EU/dL Ur Leukocyte Esterase (NEGATIVE) Urine RBC (0-5) Urine WBC (0-5) Ur Epithelial Cells Amorphous Sediment Urine Bacteria Urine Mucus Ethyl Alcohol mg/dL Influenza Type A RNA (NEGATIVE) RSV RNA (INAAT) (NEGATIVE) Influenza Type B RNA (NEGATIVE) SARS-CoV-2 RNA (GILLIAN) (NEGATIVE) Result Diagrams: 11/07/20 04:40 11/07/20 04:40 Sepsis Event Note - Evaluation Sepsis Screening Result: No Definite Risk - Focused Exam Vital Signs: Vital Signs Temp Resp BP Pulse Ox 11/07/20 08:00 37.3 C 18 119/72 90 L 11/07/20 06:00 20 124/81 91 L 11/07/20 04:00 36.9 C 20 117/72 94 L 11/07/20 02:00 18 115/73 92 L 11/07/20 00:00 36.5 C 20 118/66 92 L 11/06/20 22:00 20 119/73 93 L - Problem List & Annotations (1) Alcoholic hepatitis with ascites SNOMED Code(s): 4552551092027277 Code(s): K70.11 - ALCOHOLIC HEPATITIS WITH ASCITES Status: Acute Current Visit: Yes (2) Acute kidney injury SNOMED Code(s): 58873114, 95605393 Code(s): N17.9 - ACUTE KIDNEY FAILURE, UNSPECIFIED Status: Acute Current Visit: Yes (3) Acute hypoactive delirium due to another medical condition SNOMED Code(s): 4486430, 918765005, 288219900 Code(s): F05 - DELIRIUM DUE TO KNOWN PHYSIOLOGICAL CONDITION Status: Acute Current Visit: Yes (4) Hypokalemia SNOMED Code(s): 74137722 Code(s): E87.6 - HYPOKALEMIA Status: Acute Current Visit: Yes - Problem List Review Problem List Initiated/Reviewed/Updated: Yes - My Orders Last 24 Hours: My Active Orders 11/06/20 18:19 Resuscitation Status Routine 11/06/20 18:39 Acetaminophen [TylenoL] 650 mg PO Q4H PRN Docusate Sodium/Sennosides [Senna Plus] 1 tab PO BID PRN LORazepam [Ativan] 0.5 mg IVPUSH Q4H PRN Magnesium Hydroxide [Milk of Magnesia] 30 ml PO Q12H PRN Ondansetron [Zofran ODT] 4 mg PO Q6H PRN Ondansetron [Zofran] 4 mg IV Q6H PRN 11/06/20 18:39 Patient Status [ADT] Routine Antiembolic Devices [RC] .Routine Intake and Output [RC] QSHIFT Notify Provider Vital Signs [RC] ASDIRECTED Oxygen Therapy [RC] PRN Vital Signs [RC] Q4H Sequential Compression Device [OM.PC] Routine 11/06/20 21:00 Melatonin 9 mg PO BEDTIME 11/07/20 07:00 Abdomen Comp [US] Routine 11/07/20 07:30 Pantoprazole [ProTONIX] 40 mg PO BIDAC 11/07/20 07:58 CULTURE URINE [RM] Routine 11/07/20 Breakfast Regular Diet [DIET] 11/07/20 09:00 Folic Acid 1 mg PO DAILY Thiamine [Vitamin B-1] 100 mg PO DAILY cefTRIAXone [Rocephin] 1 gm Sodium Chloride 0.9% [Normal Saline] 50 ml IV Q24H 11/07/20 09:13 Transfer Patient (Change bed) [ADT] Routine PT Evaluation and Treatment [CONS] Routine 11/07/20 09:15 NS + KCl 20mEq/L [Normal Saline with 20 mEq KCl] 1,000 ml IV ASDIRECTED 11/08/20 05:00 CBC W/O DIFF,HEMOGRAM [HEME] Timed (1) COMPREHENSIVE METABOLIC PN,CMP [CHEM] Timed - Plan Plan:: ASSESSMENT AND PLAN - Alcohol withdrawal delirium-she has developed more of a hyperactive delirium at this time. She is paranoid and hallucinating. All of these are consistent with alcohol withdrawal and would fit with timing of last drink. -CIWA protocol with lorazepam -Gabapentin 400 mg 3 times a day for 5 days -Haldol for severe agitation -Melatonin at bedtime -Cardiac monitoring Alcoholic hepatitis without ascites-mild and seems to be improving. Ultrasound was unremarkable with no evidence for ascites. -Repeat labs in the morning -Additional management as below Alcohol abuse-persistent heavy use despite previous liver problems. She is now in florid alcohol withdrawal as discussed above. INR was mildly elevated. -Supplement thiamine and folate Possible urinary tract infection-moderate evidence to suggest infection. -Empiric ceftriaxone -Follow-up urine culture Hypokalemia-improved with supplementation. -Normal saline with potassium -Labs in the morning Maintenance issues - -DVT prophylaxis-mechanical -GI prophylaxis-PPI -Nutrition-regular diet as tolerated -Bates catheter-not indicated Disposition -I anticipate discharge home after the hospital stay Doug Coley M.D.
--- NOTE | 2020-11-07 09:17 | US ---
Abdomen Comp CLINICAL HISTORY: Abdominal pain, ascites COMPARISON: None. FINDINGS: The liver is free of mass or biliary dilatation. There is a diffuse increase parenchymal echogenicity. Liver measures 15.2 cm in length. Left lobe is not well seen.The gallbladder has a normal appearance. The common duct measures 5 mm. The pancreas is obscured. Right kidney measures 10.9 x 4.3 x 3.0 cm. Cortical thickness is 7 mm. Left kidney measures 10.8 x 4.1 x 5.6 cm. Cortical thickness is 1 cm..The aorta is obscured. The inferior vena cava is unremarkable. The spleen is mildly enlarged at 13 cm in length. IMPRESSION: Diffuse fatty infiltration of the liver Splenomegaly No evidence of ascites Pancreas is obscured There is some cortical thinning in both kidneys right greater than left
[2020-11-07] MEDS ORDERED: Haloperidol Lactate 5 MG/ML SDV IVPUSH PRN (12:56)
[2020-11-07] MEDS: LORazepam 1 MG Tab PO PRN ×2 (13:07→14:07)
[2020-11-07] MEDS: Gabapentin 400 MG Cap PO SCH ×2 (13:07→21:34)
[2020-11-07] MEDS: LORazepam 2 MG/ML SDV IV PRN (15:09)
[2020-11-07] MEDS: Melatonin 3 MG Tab PO SCH (21:33)
[2020-11-08] MEDS: LORazepam 2 MG/ML SDV IV PRN ×3 (02:57→20:19)
[2020-11-08] MEDS: NS + KCl 20mEq/L 1,000 ML IV SCH ×2 (04:42→17:39)
[2020-11-08] MEDS: Gabapentin 400 MG Cap PO SCH ×4 (07:17→20:17)
[2020-11-08] MEDS: Thiamine 100 MG Tab PO SCH ×2 (07:17→08:05)
[2020-11-08] MEDS: Folic Acid 1 MG Tab PO SCH ×2 (07:17→08:05)
[2020-11-08] MEDS: Pantoprazole 40 MG Tab.CR PO SCH ×2 (07:17→17:22)
[2020-11-08] MEDS: LORazepam 1 MG Tab PO PRN ×3 (07:21→14:08)
[2020-11-08] MEDS: cefTRIAXone 1 GM in Sodium Chloride 0.9% 50 ML IV SCH (08:05)
--- NOTE | 2020-11-08 08:51 | PCM.PN ---
- General Info Date of Service: 11/08/20 Subjective Update: There were no acute events overnight. Patient does continue to have difficulty with alcohol withdrawal including hallucinations. She is seeing animals spread throughout her room. Intermittently she has some difficulty with agitation. She has received several doses of lorazepam, both IV and oral. She is alert and interactive but think she is in [place], [place]. She has no idea what year it is. She did not remember who I was. She does not report nausea or shortness of breath. No headache. Functional Status: Reports: Pain Controlled, Tolerating Diet - Review of Systems General: Denies: Fever Neurological: Reports: Confusion Psychiatric: Reports: Hallucinations - Patient Data Vitals - Most Recent: Last Vital Signs Temp 36.6 C 11/08/20 07:23 Pulse 103 H 11/08/20 07:23 Resp 14 11/08/20 07:23 BP 114/70 11/08/20 07:23 Pulse Ox 93 L 11/08/20 07:23 Weight - Most Recent: 78.6 kg I&O - Last 24 Hours: Intake & Output 11/07/20 11/08/20 11/08/20 22:59 06:59 14:59 Intake Total 1091 150 Output Total 250 Balance 1091 -250 150 Lab Results Last 24 Hours: Laboratory Results - last 24 hr 11/08/20 11/08/20 Range/Units 05:30 05:30 WBC 9.5 (4.5-11.0) K/uL RBC 2.94 L (3.30-5.50) M/uL Hgb 9.7 L (12.0-15.0) g/dL Hct 31.0 L (36.0-48.0) % MCV 105 H (80-98) fL MCH 33 H (27-31) pg MCHC 31 L (32-36) % Plt Count 98 L (150-400) K/uL Sodium 146 (140-148) mmol/L Potassium 3.8 (3.6-5.2) mmol/L Chloride 110 H (100-108) mmol/L Carbon Dioxide 23 (21-32) mmol/L Anion Gap 16.8 H (5.0-14.0) mmol/L BUN 13 (7-18) mg/dL Creatinine 0.7 (0.6-1.0) mg/dL Est Cr Clr Drug Dosing 93.52 mL/min Estimated GFR (MDRD) > 60 (>60) Glucose 90 (74-106) mg/dL Calcium 8.4 L (8.5-10.1) mg/dL Total Bilirubin 1.6 H (0.2-1.0) mg/dL AST 89 H (15-37) U/L ALT 55 (12-78) U/L Alkaline Phosphatase 221 H (46-116) U/L Total Protein 6.8 (6.4-8.2) g/dL Albumin 2.1 L (3.4-5.0) g/dL Globulin 4.7 H (2.3-3.5) g/dL Albumin/Globulin Ratio 0.5 L (1.2-2.2) Enrrique Results Last 24 Hours: Microbiology 11/07/20 07:58 Urine Culture - Preliminary Urine, Clean Catch Med Orders - Current: Current Medications Acetaminophen (Acetaminophen 325 Mg Tab) 650 mg PO Q4H PRN PRN Reason: Pain (Mild 1-3)/fever Folic Acid (Folic Acid 1 Mg Tab) 1 mg PO DAILY [facility] Last Admin: 11/08/20 08:05 Dose: Not Given Documented by: Gabapentin (Gabapentin 400 Mg Cap) 400 mg PO TID [facility] Last Admin: 11/08/20 08:05 Dose: Not Given Documented by: Haloperidol Lactate (Haloperidol Lactate 5 Mg/Ml Sdv) 2 mg IVPUSH Q4H PRN PRN Reason: severe agitation Ceftriaxone Sodium 1 gm/ (Sodium Chloride) 50 mls @ 100 mls/hr IV Q24H [facility] Last Admin: 11/08/20 08:05 Dose: 100 mls/hr Documented by: Potassium Chloride/Sodium Chloride (Normal Saline With 20 Meq Kcl) 1,000 mls @ 75 mls/hr IV ASDIRECTED [facility] Last Admin: 11/08/20 04:42 Dose: 75 mls/hr Documented by: Lorazepam (Lorazepam 2 Mg/Ml Sdv) 0.5 mg IVPUSH Q4H PRN PRN Reason: Nausea/Vomiting Lorazepam (Lorazepam 1 Mg Tab) 0 mg PO ASDIRECTED PRN; Protocol PRN Reason: Withdrawal Symptoms Last Admin: 11/08/20 07:21 Dose: 2 mg Documented by: Lorazepam (Lorazepam 2 Mg/Ml Sdv) 0 mg IV ASDIRECTED PRN; Protocol PRN Reason: Withdrawal Symptoms Last Admin: 11/08/20 02:57 Dose: 1 mg Documented by: Magnesium Hydroxide (Magnesium Hydroxide 400 Mg/5 Ml Susp 30 Ml Cup) 30 ml PO Q12H PRN PRN Reason: Constipation Melatonin (Melatonin 3 Mg Tab) 9 mg PO BEDTIME [facility] Last Admin: 11/07/20 21:33 Dose: Not Given Documented by: Ondansetron HCl (Ondansetron 4 Mg/2 Ml Sdv) 4 mg IV Q6H PRN PRN Reason: Nausea/Vomiting Last Admin: 11/06/20 18:50 Dose: 4 mg Documented by: Ondansetron HCl (Ondansetron 4 Mg Tab.Dis) 4 mg PO Q6H PRN PRN Reason: Nausea able to take PO Pantoprazole Sodium (Pantoprazole 40 Mg Tab.Cr) 40 mg PO BIDAC [facility] Last Admin: 11/08/20 07:17 Dose: 40 mg Documented by: Senna/Docusate Sodium (Docusate Sodium/Sennosides 50-8.6 Mg Tab) 1 tab PO BID PRN PRN Reason: Constipation Thiamine HCl (Thiamine 100 Mg Tab) 100 mg PO DAILY [facility] Last Admin: 11/08/20 08:05 Dose: Not Given Documented by: Discontinued Medications Multivitamins/Minerals 10 ml/Thiamine HCl 100 mg/ Folic Acid 1 mg/ Magnesium Sulfate 3 gm/ Sodium Chloride 1,017.2 mls @ 500 mls/hr IV ASDIRECTED ONE Stop: 11/06/20 17:17 Last Admin: 11/06/20 15:53 Dose: 500 mls/hr Documented by: Potassium Chloride 20 meq/ (Premix) 100 mls @ 50 mls/hr IV ONETIME ONE Stop: 11/06/20 17:36 Last Admin: 11/06/20 15:54 Dose: 50 mls/hr Documented by: Potassium Chloride (Kcl In Water 20 Meq/100 Ml) 100 mls @ 50 mls/hr IV Q2H [facility] Stop: 11/06/20 22:59 Last Admin: 11/06/20 21:22 Dose: 50 mls/hr Documented by: Potassium Chloride/Sodium Chloride (Normal Saline With 20 Meq Kcl) 1,000 mls @ 100 mls/hr IV ASDIRECTED [facility] Last Infusion: 11/07/20 09:47 Dose: 75 mls/hr Documented by: Lidocaine HCl (Lidocaine 1% 20 Ml Mdv) 2 ml .XX Q2H [facility] Stop: 11/06/20 21:01 Last Admin: 11/06/20 21:23 Dose: 2 ml Documented by: Lorazepam (Lorazepam 2 Mg/Ml Sdv) 1 mg IVPUSH ONETIME ONE Stop: 11/06/20 15:39 Last Admin: 11/06/20 15:55 Dose: 1 mg Documented by: Lorazepam (Lorazepam 1 Mg Tab) 0 mg PO ASDIRECTED [facility]; Protocol Lorazepam (Lorazepam 2 Mg/Ml Sdv) 0 mg IV ASDIRECTED [facility]; Protocol - Exam Quality Assessment: Supplemental Oxygen General: Alert, Cooperative, No Acute Distress. No: Oriented HEENT: Pupils Equal Neck: Supple Lungs: Clear to Auscultation, Normal Respiratory Effort Cardiovascular: Regular Rhythm, Tachycardia GI/Abdominal Exam: Normal Bowel Sounds, Soft, Non-Tender, Distended Extremities: No Pedal Edema. No: Increased Warmth Skin: Warm, Dry Psy/Mental Status: Alert, Hallucinations (animals). No: Agitated - Patient Data Lab Results Last 24 hrs: Laboratory Results - last 24 hr 11/08/20 11/08/20 Range/Units 05:30 05:30 WBC 9.5 (4.5-11.0) K/uL RBC 2.94 L (3.30-5.50) M/uL Hgb 9.7 L (12.0-15.0) g/dL Hct 31.0 L (36.0-48.0) % MCV 105 H (80-98) fL MCH 33 H (27-31) pg MCHC 31 L (32-36) % Plt Count 98 L (150-400) K/uL Sodium 146 (140-148) mmol/L Potassium 3.8 (3.6-5.2) mmol/L Chloride 110 H (100-108) mmol/L Carbon Dioxide 23 (21-32) mmol/L Anion Gap 16.8 H (5.0-14.0) mmol/L BUN 13 (7-18) mg/dL Creatinine 0.7 (0.6-1.0) mg/dL Est Cr Clr Drug Dosing 93.52 mL/min Estimated GFR (MDRD) > 60 (>60) Glucose 90 (74-106) mg/dL Calcium 8.4 L (8.5-10.1) mg/dL Total Bilirubin 1.6 H (0.2-1.0) mg/dL AST 89 H (15-37) U/L ALT 55 (12-78) U/L Alkaline Phosphatase 221 H (46-116) U/L Total Protein 6.8 (6.4-8.2) g/dL Albumin 2.1 L (3.4-5.0) g/dL Globulin 4.7 H (2.3-3.5) g/dL Albumin/Globulin Ratio 0.5 L (1.2-2.2) Result Diagrams: 11/08/20 05:30 11/08/20 05:30 Enrrique Results Last 24 hrs: Microbiology 11/07/20 07:58 Urine Culture - Preliminary Urine, Clean Catch Sepsis Event Note - Evaluation Sepsis Screening Result: No Definite Risk - Focused Exam Vital Signs: Vital Signs Temp Pulse Resp BP Pulse Ox 11/08/20 07:23 36.6 C 103 H 14 114/70 93 L 11/08/20 05:00 37.1 C 17 124/71 92 L 11/08/20 03:00 36.5 C 19 106/53 L 92 L 11/08/20 01:00 36.9 C 18 121/71 99 11/07/20 23:00 18 94/62 96 11/07/20 21:00 36.7 C 17 121/88 97 - Problem List & Annotations (1) Alcohol withdrawal delirium, acute, hyperactive SNOMED Code(s): 8393701, 96377483, 58466939958904526 Code(s): F10.231 - ALCOHOL DEPENDENCE WITH WITHDRAWAL DELIRIUM Status: Acute Current Visit: Yes (2) Alcoholic hepatitis with ascites SNOMED Code(s): 3028303291432032 Code(s): K70.11 - ALCOHOLIC HEPATITIS WITH ASCITES Status: Acute Current Visit: Yes (3) Acute kidney injury SNOMED Code(s): 07466879, 75711665 Code(s): N17.9 - ACUTE KIDNEY FAILURE, UNSPECIFIED Status: Acute Current Visit: Yes (4) Acute hypoactive delirium due to another medical condition SNOMED Code(s): 3437500, 487873719, 727471351 Code(s): F05 - DELIRIUM DUE TO KNOWN PHYSIOLOGICAL CONDITION Status: Acute Current Visit: Yes (5) Hypokalemia SNOMED Code(s): 74509508 Code(s): E87.6 - HYPOKALEMIA Status: Acute Current Visit: Yes - Problem List Review Problem List Initiated/Reviewed/Updated: Yes - My Orders Last 24 Hours: My Active Orders 11/07/20 07:58 CULTURE URINE [RM] Routine 11/07/20 Breakfast Regular Diet [DIET] 11/07/20 09:00 Folic Acid 1 mg PO DAILY Thiamine [Vitamin B-1] 100 mg PO DAILY cefTRIAXone [Rocephin] 1 gm Sodium Chloride 0.9% [Normal Saline] 50 ml IV Q24H 11/07/20 09:13 Transfer Patient (Change bed) [ADT] Routine 11/07/20 09:15 NS + KCl 20mEq/L [Normal Saline with 20 mEq KCl] 1,000 ml IV ASDIRECTED 11/07/20 12:56 CIWAA Assessment [RC] Q1H Notify Provider [RC] PRN Haloperidol Lactate [Haldol] 2 mg IVPUSH Q4H PRN 11/07/20 12:57 Transfer Patient (Change bed) [ADT] Routine 11/07/20 12:58 Cardiac Monitoring [RC] Q6H 11/07/20 13:00 LORazepam [Ativan] See Protocol IV ASDIRECTED PRN LORazepam [Ativan] See Protocol PO ASDIRECTED PRN 11/07/20 14:00 Gabapentin [Neurontin] 400 mg PO TID 11/09/20 05:00 CBC W/O DIFF,HEMOGRAM [HEME] Timed (1) COMPREHENSIVE METABOLIC PN,CMP [CHEM] Timed - Plan Plan:: ASSESSMENT AND PLAN - Alcohol withdrawal delirium-still in alcohol withdrawal with some hyperactivity. Quite confused and disoriented. Vital signs relatively stable. -CIWA protocol with lorazepam -Gabapentin 400 mg 3 times a day for 5 days -Haldol for severe agitation -Melatonin at bedtime -Cardiac monitoring Alcoholic hepatitis without ascites-mild and seems to be improving with decreasing bilirubin. Ultrasound was unremarkable with no evidence for ascites. -Repeat labs in the morning -Additional management as below Alcohol abuse-persistent heavy use despite previous liver problems. She is now in florid alcohol withdrawal as discussed above. INR was mildly elevated. -Supplement thiamine and folate Possible urinary tract infection-moderate evidence to suggest infection and culture is growing a gram-negative nixon with identification pending. -Empiric ceftriaxone -Follow-up urine culture Hypokalemia-improved with supplementation. -Normal saline with potassium -Labs in the morning Maintenance issues - -DVT prophylaxis-mechanical -GI prophylaxis-PPI -Nutrition-regular diet as tolerated -Bates catheter-not indicated Disposition -I anticipate discharge home after the hospital stay Doug Coley M.D.
[2020-11-08] MEDS: Melatonin 3 MG Tab PO SCH (20:17)
[2020-11-09] MEDS: LORazepam 2 MG/ML SDV IV PRN ×6 (00:39→23:59)
[2020-11-09] MEDS: NS + KCl 20mEq/L 1,000 ML IV SCH ×2 (06:01→18:16)
[2020-11-09] MEDS: Pantoprazole 40 MG Tab.CR PO SCH ×2 (09:35→15:43)
--- NOTE | 2020-11-09 09:37 | PCM.PN ---
- General Info Date of Service: 11/09/20 Subjective Update: There were no acute events overnight. Patient continues to be quite confused and remains in alcohol withdrawal. History is very difficult to gather because of her confusion. She continues to receive lorazepam intermittently for the withdrawal. She seems to be hallucinating and does report there are still animals in her room. Vital signs have been relatively stable other than mild tachycardia. No fevers. Urine culture did grow out a pansensitive E. coli. - Review of Systems General: Denies: Fever Neurological: Reports: Confusion Psychiatric: Reports: Hallucinations - Patient Data Vitals - Most Recent: Last Vital Signs Temp 36.1 C 11/09/20 05:00 Pulse 101 H 11/08/20 17:00 Resp 14 11/09/20 05:00 BP 111/64 11/09/20 05:00 Pulse Ox 97 11/09/20 05:00 Weight - Most Recent: 78.6 kg I&O - Last 24 Hours: Intake & Output 11/08/20 11/09/20 11/09/20 22:59 06:59 14:59 Intake Total 1830 906 Output Total 300 Balance 1530 906 Lab Results Last 24 Hours: Laboratory Results - last 24 hr 11/09/20 11/09/20 Range/Units 04:26 04:26 WBC 7.5 (4.5-11.0) K/uL RBC 3.05 L (3.30-5.50) M/uL Hgb 10.0 L (12.0-15.0) g/dL Hct 32.1 L (36.0-48.0) % MCV 105 H (80-98) fL MCH 33 H (27-31) pg MCHC 31 L (32-36) % Plt Count 94 L (150-400) K/uL Sodium 142 (140-148) mmol/L Potassium 3.8 (3.6-5.2) mmol/L Chloride 106 (100-108) mmol/L Carbon Dioxide 23 (21-32) mmol/L Anion Gap 12.8 (5.0-14.0) mmol/L BUN 7 (7-18) mg/dL Creatinine 0.7 (0.6-1.0) mg/dL Est Cr Clr Drug Dosing 93.52 mL/min Estimated GFR (MDRD) > 60 (>60) Glucose 90 (74-106) mg/dL Calcium 8.3 L (8.5-10.1) mg/dL Total Bilirubin 1.2 H (0.2-1.0) mg/dL AST 113 H (15-37) U/L ALT 64 (12-78) U/L Alkaline Phosphatase 232 H (46-116) U/L Total Protein 6.6 (6.4-8.2) g/dL Albumin 2.1 L (3.4-5.0) g/dL Globulin 4.5 H (2.3-3.5) g/dL Albumin/Globulin Ratio 0.5 L (1.2-2.2) Enrrique Results Last 24 Hours: Microbiology 11/07/20 07:58 Urine Culture - Final Urine, Clean Catch Escherichia Coli Med Orders - Current: Current Medications Acetaminophen (Acetaminophen 325 Mg Tab) 650 mg PO Q4H PRN PRN Reason: Pain (Mild 1-3)/fever Folic Acid (Folic Acid 1 Mg Tab) 1 mg PO DAILY [facility] [place] Last Admin: 11/08/20 08:05 Dose: Not Given Documented by: Gabapentin (Gabapentin 400 Mg Cap) 400 mg PO TID [facility] [place] Last Admin: 11/08/20 20:17 Dose: 400 mg Documented by: Haloperidol Lactate (Haloperidol Lactate 5 Mg/Ml Sdv) 2 mg IVPUSH Q4H PRN PRN Reason: severe agitation Potassium Chloride/Sodium Chloride (Normal Saline With 20 Meq Kcl) 1,000 mls @ 75 mls/hr IV ASDIRECTED [facility] [place] Last Admin: 11/09/20 06:01 Dose: 75 mls/hr Documented by: Lorazepam (Lorazepam 2 Mg/Ml Sdv) 0.5 mg IVPUSH Q4H PRN PRN Reason: Nausea/Vomiting Lorazepam (Lorazepam 1 Mg Tab) 0 mg PO ASDIRECTED PRN; Protocol PRN Reason: Withdrawal Symptoms Last Admin: 11/08/20 14:08 Dose: 2 mg Documented by: Lorazepam (Lorazepam 2 Mg/Ml Sdv) 0 mg IV ASDIRECTED PRN; Protocol PRN Reason: Withdrawal Symptoms Last Admin: 11/09/20 06:01 Dose: 1 mg Documented by: Magnesium Hydroxide (Magnesium Hydroxide 400 Mg/5 Ml Susp 30 Ml Cup) 30 ml PO Q12H PRN PRN Reason: Constipation Melatonin (Melatonin 3 Mg Tab) 9 mg PO BEDTIME [facility] [place] Last Admin: 11/08/20 20:17 Dose: 9 mg Documented by: Ondansetron HCl (Ondansetron 4 Mg/2 Ml Sdv) 4 mg IV Q6H PRN PRN Reason: Nausea/Vomiting Last Admin: 11/06/20 18:50 Dose: 4 mg Documented by: Ondansetron HCl (Ondansetron 4 Mg Tab.Dis) 4 mg PO Q6H PRN PRN Reason: Nausea able to take PO Pantoprazole Sodium (Pantoprazole 40 Mg Tab.Cr) 40 mg PO BIDAC [facility] [place] Last Admin: 11/08/20 17:22 Dose: 40 mg Documented by: Senna/Docusate Sodium (Docusate Sodium/Sennosides 50-8.6 Mg Tab) 1 tab PO BID PRN PRN Reason: Constipation Thiamine HCl (Thiamine 100 Mg Tab) 100 mg PO DAILY [facility] [place] Last Admin: 11/08/20 08:05 Dose: Not Given Documented by: Discontinued Medications Multivitamins/Minerals 10 ml/Thiamine HCl 100 mg/ Folic Acid 1 mg/ Magnesium Sulfate 3 gm/ Sodium Chloride 1,017.2 mls @ 500 mls/hr IV ASDIRECTED ONE Stop: 11/06/20 17:17 Last Admin: 11/06/20 15:53 Dose: 500 mls/hr Documented by: Potassium Chloride 20 meq/ (Premix) 100 mls @ 50 mls/hr IV ONETIME ONE Stop: 11/06/20 17:36 Last Admin: 11/06/20 15:54 Dose: 50 mls/hr Documented by: Potassium Chloride (Kcl In Water 20 Meq/100 Ml) 100 mls @ 50 mls/hr IV Q2H [facility] [place] Stop: 11/06/20 22:59 Last Admin: 11/06/20 21:22 Dose: 50 mls/hr Documented by: Potassium Chloride/Sodium Chloride (Normal Saline With 20 Meq Kcl) 1,000 mls @ 100 mls/hr IV ASDIRECTED [facility] [place] Last Infusion: 11/07/20 09:47 Dose: 75 mls/hr Documented by: Ceftriaxone Sodium 1 gm/ (Sodium Chloride) 50 mls @ 100 mls/hr IV Q24H [facility] [place] Last Admin: 11/08/20 08:05 Dose: 100 mls/hr Documented by: Lidocaine HCl (Lidocaine 1% 20 Ml Mdv) 2 ml .XX Q2H [facility] Stop: 11/06/20 21:01 Last Admin: 11/06/20 21:23 Dose: 2 ml Documented by: Lorazepam (Lorazepam 2 Mg/Ml Sdv) 1 mg IVPUSH ONETIME ONE Stop: 11/06/20 15:39 Last Admin: 11/06/20 15:55 Dose: 1 mg Documented by: Lorazepam (Lorazepam 1 Mg Tab) 0 mg PO ASDIRECTED [facility]; Protocol Lorazepam (Lorazepam 2 Mg/Ml Sdv) 0 mg IV ASDIRECTED [facility]; Protocol - Exam Quality Assessment: Supplemental Oxygen General: Alert, Cooperative, No Acute Distress, Lethargic. No: Oriented HEENT: Pupils Equal Neck: Supple Lungs: Clear to Auscultation, Normal Respiratory Effort Cardiovascular: Regular Rhythm, Tachycardia GI/Abdominal Exam: Soft, No Distention, Abnormal Bowel Sounds (hypoactive) Extremities: No Pedal Edema. No: Increased Warmth Skin: Warm, Dry Neurological: No New Focal Deficit Psy/Mental Status: Alert, Hallucinations (animals on the computer ). No: Agitated - Patient Data Lab Results Last 24 hrs: Laboratory Results - last 24 hr 11/09/20 11/09/20 Range/Units 04:26 04:26 WBC 7.5 (4.5-11.0) K/uL RBC 3.05 L (3.30-5.50) M/uL Hgb 10.0 L (12.0-15.0) g/dL Hct 32.1 L (36.0-48.0) % MCV 105 H (80-98) fL MCH 33 H (27-31) pg MCHC 31 L (32-36) % Plt Count 94 L (150-400) K/uL Sodium 142 (140-148) mmol/L Potassium 3.8 (3.6-5.2) mmol/L Chloride 106 (100-108) mmol/L Carbon Dioxide 23 (21-32) mmol/L Anion Gap 12.8 (5.0-14.0) mmol/L BUN 7 (7-18) mg/dL Creatinine 0.7 (0.6-1.0) mg/dL Est Cr Clr Drug Dosing 93.52 mL/min Estimated GFR (MDRD) > 60 (>60) Glucose 90 (74-106) mg/dL Calcium 8.3 L (8.5-10.1) mg/dL Total Bilirubin 1.2 H (0.2-1.0) mg/dL AST 113 H (15-37) U/L ALT 64 (12-78) U/L Alkaline Phosphatase 232 H (46-116) U/L Total Protein 6.6 (6.4-8.2) g/dL Albumin 2.1 L (3.4-5.0) g/dL Globulin 4.5 H (2.3-3.5) g/dL Albumin/Globulin Ratio 0.5 L (1.2-2.2) Result Diagrams: 11/09/20 04:26 11/09/20 04:26 Enrrique Results Last 24 hrs: Microbiology 11/07/20 07:58 Urine Culture - Final Urine, Clean Catch Escherichia Coli Sepsis Event Note - Evaluation Sepsis Screening Result: No Definite Risk - Focused Exam Vital Signs: Vital Signs Temp Resp BP Pulse Ox 11/09/20 05:00 36.1 C 14 111/64 97 11/09/20 03:00 36.6 C 17 105/67 95 11/09/20 01:00 20 113/56 L 95 11/08/20 23:00 36.4 C 15 102/56 L 93 L - Problem List & Annotations (1) Alcohol withdrawal delirium, acute, hyperactive SNOMED Code(s): 9999526, 76699575, 54568529384210809 Code(s): F10.231 - ALCOHOL DEPENDENCE WITH WITHDRAWAL DELIRIUM Status: Acute Current Visit: Yes (2) Alcoholic hepatitis with ascites SNOMED Code(s): 6050914903851396 Code(s): K70.11 - ALCOHOLIC HEPATITIS WITH ASCITES Status: Acute Current Visit: Yes (3) Acute kidney injury SNOMED Code(s): 33749953, 08561402 Code(s): N17.9 - ACUTE KIDNEY FAILURE, UNSPECIFIED Status: Acute Current Visit: Yes (4) Acute hypoactive delirium due to another medical condition SNOMED Code(s): 8372179, 521648804, 319824024 Code(s): F05 - DELIRIUM DUE TO KNOWN PHYSIOLOGICAL CONDITION Status: Acute Current Visit: Yes (5) Hypokalemia SNOMED Code(s): 69471629 Code(s): E87.6 - HYPOKALEMIA Status: Acute Current Visit: Yes - Problem List Review Problem List Initiated/Reviewed/Updated: Yes - My Orders Last 24 Hours: My Active Orders 11/09/20 14:00 Gabapentin [Neurontin] 200 mg PO TID 11/10/20 05:00 BASIC METABOLIC PANEL,BMP [CHEM] Timed CBC W/O DIFF,HEMOGRAM [HEME] Timed (1) - Plan Plan:: ASSESSMENT AND PLAN - Alcohol withdrawal delirium-still in alcohol withdrawal with some hyperactivity. Vital stable but still quite confused and uncoordinated. -CIWA protocol with lorazepam -Gabapentin 200 mg 3 times a day (dose decreased) -Continue IV fluids with poor intake -Haldol for severe agitation -Melatonin at bedtime -Cardiac monitoring Alcoholic hepatitis without ascites-mild and seems to be improving with decreasing bilirubin. Ultrasound was unremarkable with no evidence for ascites. -Repeat labs every other day -Additional management as below Alcohol abuse-persistent heavy use despite previous liver problems. She remains in alcohol withdrawal as above -Supplement thiamine and folate Urinary tract infection-urine culture grew out greater than 100,000 CFU's of E. coli. She has had 3 days of antibiotics which should be sufficient. -Discontinue antibiotics Hypokalemia-improved with supplementation. -Normal saline with potassium -Labs in the morning Maintenance issues - -DVT prophylaxis-mechanical -GI prophylaxis-PPI -Nutrition-regular diet as tolerated -Bates catheter-not indicated Disposition -I anticipate discharge home after the hospital stay Doug Coley M.D.
[2020-11-09] MEDS: Thiamine 100 MG Tab PO SCH (10:00)
[2020-11-09] MEDS: Gabapentin 400 MG Cap PO SCH (10:00)
[2020-11-09] MEDS: Folic Acid 1 MG Tab PO SCH (10:01)
[2020-11-09] MEDS: Gabapentin 100 MG Cap PO SCH ×3 (10:07→21:41)
[2020-11-09] MEDS ORDERED: cefTRIAXone 1 GM in Sodium Chloride 0.9% 50 ML IV ONE (12:00)
[2020-11-09] MEDS ORDERED: Gabapentin 100 MG Cap PO SCH (14:00)
[2020-11-09] MEDS: cefTRIAXone 1 GM in Sodium Chloride 0.9% 50 ML IV SCH (16:34)
[2020-11-09] MEDS: Melatonin 3 MG Tab PO SCH (21:41)
[2020-11-10] MEDS: NS + KCl 20mEq/L 1,000 ML IV SCH (06:25)
[2020-11-10] MEDS: Folic Acid 1 MG Tab PO SCH (09:24)
[2020-11-10] MEDS: Pantoprazole 40 MG Tab.CR PO SCH ×2 (09:24→17:16)
[2020-11-10] MEDS: LORazepam 1 MG Tab PO PRN ×3 (09:25→23:24)
[2020-11-10] MEDS: Gabapentin 100 MG Cap PO SCH ×3 (09:25→20:29)
[2020-11-10] MEDS: Thiamine 100 MG Tab PO SCH (09:25)
--- NOTE | 2020-11-10 09:28 | PCM.PN ---
- General Info Date of Service: 11/10/20 Subjective Update: There were no acute events overnight. Patient continues to experience alcohol withdrawal. She does remain confused though a little bit less so today. I still am not getting much reliable history out of her because of the confusion and alcohol withdrawal. She did not have any fevers overnight. She does continue to intermittently although less frequently require lorazepam for her withdrawal. She did receive a dose of Haldol last night for agitation and hallucination. She reports that she is no longer hallucinating. Intake has been minimal and she does require assistance with feeding. Functional Status: Reports: Pain Controlled - Review of Systems General: Denies: Fever Psychiatric: Reports: Confusion. Denies: Hallucinations - Patient Data Vitals - Most Recent: Last Vital Signs Temp 36.1 C 11/10/20 04:00 Pulse 67 11/10/20 08:00 Resp 18 11/10/20 08:00 BP 127/73 11/10/20 08:00 Pulse Ox 96 11/10/20 08:00 Weight - Most Recent: 78.6 kg I&O - Last 24 Hours: Intake & Output 11/09/20 11/10/20 11/10/20 22:59 06:59 14:59 Intake Total 940 1100 Balance 940 1100 Lab Results Last 24 Hours: Laboratory Results - last 24 hr 11/10/20 11/10/20 Range/Units 04:05 04:05 WBC 6.9 (4.5-11.0) K/uL RBC 2.99 L (3.30-5.50) M/uL Hgb 9.6 L (12.0-15.0) g/dL Hct 31.3 L (36.0-48.0) % MCV 105 H (80-98) fL MCH 32 H (27-31) pg MCHC 31 L (32-36) % Plt Count 97 L (150-400) K/uL Sodium 143 (140-148) mmol/L Potassium 3.8 (3.6-5.2) mmol/L Chloride 108 (100-108) mmol/L Carbon Dioxide 23 (21-32) mmol/L Anion Gap 12.5 (5.0-14.0) mmol/L BUN 5 L (7-18) mg/dL Creatinine 0.6 (0.6-1.0) mg/dL Est Cr Clr Drug Dosing 109.10 mL/min Estimated GFR (MDRD) > 60 (>60) Glucose 110 H (74-106) mg/dL Calcium 8.5 (8.5-10.1) mg/dL Enrrique Results Last 24 Hours: Microbiology 11/07/20 07:58 Urine Culture - Final Urine, Clean Catch Escherichia Coli Med Orders - Current: Current Medications Acetaminophen (Acetaminophen 325 Mg Tab) 650 mg PO Q4H PRN PRN Reason: Pain (Mild 1-3)/fever Folic Acid (Folic Acid 1 Mg Tab) 1 mg PO DAILY [facility] Last Admin: 11/10/20 09:24 Dose: 1 mg Documented by: Gabapentin (Gabapentin 100 Mg Cap) 200 mg PO TID [facility] Last Admin: 11/10/20 09:25 Dose: 200 mg Documented by: Haloperidol Lactate (Haloperidol Lactate 5 Mg/Ml Sdv) 2 mg IVPUSH Q4H PRN PRN Reason: severe agitation Last Admin: 11/09/20 17:47 Dose: 2 mg Documented by: Lorazepam (Lorazepam 2 Mg/Ml Sdv) 0.5 mg IVPUSH Q4H PRN PRN Reason: Nausea/Vomiting Lorazepam (Lorazepam 1 Mg Tab) 0 mg PO ASDIRECTED PRN; Protocol PRN Reason: Withdrawal Symptoms Last Admin: 11/10/20 09:25 Dose: 1 mg Documented by: Lorazepam (Lorazepam 2 Mg/Ml Sdv) 0 mg IV ASDIRECTED PRN; Protocol PRN Reason: Withdrawal Symptoms Last Admin: 11/09/20 23:59 Dose: 2 mg Documented by: Magnesium Hydroxide (Magnesium Hydroxide 400 Mg/5 Ml Susp 30 Ml Cup) 30 ml PO Q 12H PRN PRN Reason: Constipation Last Admin: 11/09/20 10:14 Dose: 30 ml Documented by: Melatonin (Melatonin 3 Mg Tab) 9 mg PO BEDTIME [facility] Last Admin: 11/09/20 21:41 Dose: 9 mg Documented by: Ondansetron HCl (Ondansetron 4 Mg/2 Ml Sdv) 4 mg IV Q6H PRN PRN Reason: Nausea/Vomiting Last Admin: 11/06/20 18:50 Dose: 4 mg Documented by: Ondansetron HCl (Ondansetron 4 Mg Tab.Dis) 4 mg PO Q6H PRN PRN Reason: Nausea able to take PO Pantoprazole Sodium (Pantoprazole 40 Mg Tab.Cr) 40 mg PO BIDAC [facility] Last Admin: 11/10/20 09:24 Dose: 40 mg Documented by: Senna/Docusate Sodium (Docusate Sodium/Sennosides 50-8.6 Mg Tab) 1 tab PO BID PRN PRN Reason: Constipation Thiamine HCl (Thiamine 100 Mg Tab) 100 mg PO DAILY [facility] Last Admin: 11/10/20 09:25 Dose: 100 mg Documented by: Discontinued Medications Gabapentin (Gabapentin 400 Mg Cap) 400 mg PO TID [facility] Last Admin: 11/09/20 10:00 Dose: Not Given Documented by: Multivitamins/Minerals 10 ml/Thiamine HCl 100 mg/ Folic Acid 1 mg/ Magnesium Sulfate 3 gm/ Sodium Chloride 1,017.2 mls @ 500 mls/hr IV ASDIRECTED ONE Stop: 11/06/20 17:17 Last Admin: 11/06/20 15:53 Dose: 500 mls/hr Documented by: Potassium Chloride 20 meq/ (Premix) 100 mls @ 50 mls/hr IV ONETIME ONE Stop: 11/06/20 17:36 Last Admin: 11/06/20 15:54 Dose: 50 mls/hr Documented by: Potassium Chloride (Kcl In Water 20 Meq/100 Ml) 100 mls @ 50 mls/hr IV Q2H [facility] Stop: 11/06/20 22:59 Last Admin: 11/06/20 21:22 Dose: 50 mls/hr Documented by: Potassium Chloride/Sodium Chloride (Normal Saline With 20 Meq Kcl) 1,000 mls @ [facility] Infusion: 11/07/20 09:47 Dose: 75 mls/hr Documented by: Ceftriaxone Sodium 1 gm/ (Sodium Chloride) 50 mls @ 100 mls/hr IV Q24H [facility] Last Admin: 11/09/20 16:34 Dose: Not Given Documented by: Potassium Chloride/Sodium Chloride (Normal Saline With 20 Meq Kcl) 1,000 mls @ 75 mls/hr IV ASDIRECTED [facility] Last Admin: 11/10/20 06:25 Dose: 75 mls/hr Documented by: Ceftriaxone Sodium 1 gm/ (Sodium Chloride) 50 mls @ 100 mls/hr IV ONETIME ONE Stop: 11/09/20 12:29 Last Admin: 11/09/20 11:49 Dose: 100 mls/hr Documented by: Lidocaine HCl (Lidocaine 1% 20 Ml Mdv) 2 ml .XX Q2H [facility] Stop: 11/06/20 21:01 Last Admin: 11/06/20 21:23 Dose: 2 ml Documented by: Lorazepam (Lorazepam 2 Mg/Ml Sdv) 1 mg IVPUSH ONETIME ONE Stop: 11/06/20 15:39 Last Admin: 11/06/20 15:55 Dose: 1 mg Documented by: Lorazepam (Lorazepam 1 Mg Tab) 0 mg PO ASDIRECTED [facility]; Protocol Lorazepam (Lorazepam 2 Mg/Ml Sdv) 0 mg IV ASDIRECTED [facility]; Protocol - Exam Quality Assessment: Supplemental Oxygen General: Alert, Cooperative, No Acute Distress HEENT: Pupils Equal Neck: Supple Lungs: Clear to Auscultation, Normal Respiratory Effort Cardiovascular: Regular Rate, Regular Rhythm GI/Abdominal Exam: Normal Bowel Sounds, Soft, No Distention Extremities: No Pedal Edema. No: Increased Warmth Skin: Warm, Dry Psy/Mental Status: Alert. No: Agitated, Hallucinations - Patient Data Lab Results Last 24 hrs: Laboratory Results - last 24 hr 11/10/20 11/10/20 Range/Units 04:05 04:05 WBC 6.9 (4.5-11.0) K/uL RBC 2.99 L (3.30-5.50) M/uL Hgb 9.6 L (12.0-15.0) g/dL Hct 31.3 L (36.0-48.0) % MCV 105 H (80-98) fL MCH 32 H (27-31) pg MCHC 31 L (32-36) % Plt Count 97 L (150-400) K/uL Sodium 143 (140-148) mmol/L Potassium 3.8 (3.6-5.2) mmol/L Chloride 108 (100-108) mmol/L Carbon Dioxide 23 (21-32) mmol/L Anion Gap 12.5 (5.0-14.0) mmol/L BUN 5 L (7-18) mg/dL Creatinine 0.6 (0.6-1.0) mg/dL Est Cr Clr Drug Dosing 109.10 mL/min Estimated GFR (MDRD) > 60 (>60) Glucose 110 H (74-106) mg/dL Calcium 8.5 (8.5-10.1) mg/dL Result Diagrams: 11/10/20 04:05 11/10/20 04:05 Enrrique Results Last 24 hrs: Microbiology 11/07/20 07:58 Urine Culture - Final Urine, Clean Catch Escherichia Coli Sepsis Event Note - Evaluation Sepsis Screening Result: No Definite Risk - Focused Exam Vital Signs: Vital Signs Temp Pulse Resp BP Pulse Ox 11/10/20 08:00 67 18 127/73 96 11/10/20 06:00 16 94/66 98 11/10/20 04:00 36.1 C 14 101/66 97 11/10/20 02:00 20 109/63 96 11/10/20 00:00 36.5 C 18 108/72 96 11/09/20 22:00 16 102/64 95 - Problem List & Annotations (1) Alcohol withdrawal delirium, acute, hyperactive SNOMED Code(s): 5504061, 94473502, 64333535406828550 Code(s): F10.231 - ALCOHOL DEPENDENCE WITH WITHDRAWAL DELIRIUM Status: Acute Current Visit: Yes (2) Alcoholic hepatitis with ascites SNOMED Code(s): 2687422128506018 Code(s): K70.11 - ALCOHOLIC HEPATITIS WITH ASCITES Status: Acute Current Visit: Yes (3) Acute kidney injury SNOMED Code(s): 17691918, 85925558 Code(s): N17.9 - ACUTE KIDNEY FAILURE, UNSPECIFIED Status: Acute Current Visit: Yes (4) Acute hypoactive delirium due to another medical condition SNOMED Code(s): 9283693, 681127012, 656576164 Code(s): F05 - DELIRIUM DUE TO KNOWN PHYSIOLOGICAL CONDITION Status: Acute Current Visit: Yes (5) Hypokalemia SNOMED Code(s): 02353155 Code(s): E87.6 - HYPOKALEMIA Status: Acute Current Visit: Yes - Problem List Review Problem List Initiated/Reviewed/Updated: Yes - My Orders Last 24 Hours: My Active Orders 11/09/20 10:00 Gabapentin [Neurontin] 200 mg PO TID 11/10/20 09:26 PT Evaluation and Treatment [CONS] Routine Convert IV to Saline Lock [OM.PC] Routine 11/11/20 05:00 COMPREHENSIVE METABOLIC PN,CMP [CHEM] Timed - Plan Plan:: ASSESSMENT AND PLAN - Alcohol withdrawal delirium-still in alcohol withdrawal with mixed hyperactive and hypoactive states. Vital stable does seem to be slowly getting better. -CIWA protocol with lorazepam -Gabapentin 200 mg 3 times a day (dose decreased) -Saline lock IV -Haldol for severe agitation -Melatonin at bedtime -Cardiac monitoring -Start physical therapy Alcoholic hepatitis without ascites-mild and improving with decreasing bilirubin. Ultrasound was unremarkable with no evidence for ascites as had been expected based on examination. -Repeat labs every other day -Additional management as below Alcohol abuse-persistent heavy use despite previous liver problems. She remains in alcohol withdrawal as above -Supplement thiamine and folate Urinary tract infection-urine culture grew out greater than 100,000 CFU's of E. coli. She has had 3 days of antibiotics which should be sufficient. Hypokalemia-improved with supplementation. -Normal saline with potassium -Labs in the morning Maintenance issues - -DVT prophylaxis-mechanical -GI prophylaxis-PPI -Nutrition-regular diet as tolerated -Bates catheter-not indicated Disposition -I anticipate discharge home after the hospital stay Doug Coley M.D.
[2020-11-10] MEDS: Melatonin 3 MG Tab PO SCH (20:29)
[2020-11-11] MEDS: Gabapentin 100 MG Cap PO SCH ×3 (08:16→20:27)
[2020-11-11] MEDS: Pantoprazole 40 MG Tab.CR PO SCH ×2 (08:16→16:05)
[2020-11-11] MEDS: Folic Acid 1 MG Tab PO SCH (08:17)
[2020-11-11] MEDS: Thiamine 100 MG Tab PO SCH (08:17)
--- NOTE | 2020-11-11 09:47 | PCM.PN ---
- General Info Date of Service: 11/11/20 Subjective Update: There were no acute events overnight. Patient is less confused and more interactive today. She is still quite weak but was able to get from the bed to the chair with less difficulty today. She is able to feed herself today. Requirements for lorazepam have been decreasing. No hallucinations. No shortness of breath, abdominal pain or nausea. Functional Status: Reports: Pain Controlled, Tolerating Diet - Review of Systems General: Reports: Weakness Neurological: Reports: Confusion (improving) Psychiatric: Denies: Hallucinations - Patient Data Vitals - Most Recent: Last Vital Signs Temp 37.0 C 11/11/20 07:47 Pulse 91 11/11/20 07:47 Resp 18 11/11/20 07:47 BP 114/69 11/11/20 07:47 Pulse Ox 94 L 11/11/20 07:47 Weight - Most Recent: 78.6 kg I&O - Last 24 Hours: Intake & Output 11/10/20 11/11/20 11/11/20 22:59 06:59 14:59 Intake Total 700 Balance 700 Lab Results Last 24 Hours: Laboratory Results - last 24 hr 11/11/20 Range/Units 05:20 Sodium 142 (140-148) mmol/L Potassium 3.6 (3.6-5.2) mmol/L Chloride 106 (100-108) mmol/L Carbon Dioxide 23 (21-32) mmol/L Anion Gap 12.6 (5.0-14.0) mmol/L BUN 5 L (7-18) mg/dL Creatinine 0.6 (0.6-1.0) mg/dL Est Cr Clr Drug Dosing 109.10 mL/min Estimated GFR (MDRD) > 60 (>60) Glucose 97 (74-106) mg/dL Calcium 8.6 (8.5-10.1) mg/dL Total Bilirubin 0.9 (0.2-1.0) mg/dL AST 95 H (15-37) U/L ALT 62 (12-78) U/L Alkaline Phosphatase 226 H (46-116) U/L Total Protein 6.8 (6.4-8.2) g/dL Albumin 2.2 L (3.4-5.0) g/dL Globulin 4.6 H (2.3-3.5) g/dL Albumin/Globulin Ratio 0.5 L (1.2-2.2) Med Orders - Current: Current Medications Acetaminophen (Acetaminophen 325 Mg Tab) 650 mg PO Q4H PRN PRN Reason: Pain (Mild 1-3)/fever Folic Acid (Folic Acid 1 Mg Tab) 1 mg PO DAILY [facility] Last Admin: 11/11/20 08:17 Dose: 1 mg Documented by: Gabapentin (Gabapentin 100 Mg Cap) 200 mg PO TID [facility] Last Admin: 11/11/20 08:16 Dose: 200 mg Documented by: Haloperidol Lactate (Haloperidol Lactate 5 Mg/Ml Sdv) 2 mg IVPUSH Q4H PRN PRN Reason: severe agitation Last Admin: 11/09/20 17:47 Dose: 2 mg Documented by: Lorazepam (Lorazepam 2 Mg/Ml Sdv) 0.5 mg IVPUSH Q4H PRN PRN Reason: Nausea/Vomiting Lorazepam (Lorazepam 1 Mg Tab) 0 mg PO ASDIRECTED PRN; Protocol PRN Reason: Withdrawal Symptoms Last Admin: 11/10/20 23:24 Dose: 1 mg Documented by: Lorazepam (Lorazepam 2 Mg/Ml Sdv) 0 mg IV ASDIRECTED PRN; Protocol PRN Reason: Withdrawal Symptoms Last Admin: 11/09/20 23:59 Dose: 2 mg Documented by: Magnesium Hydroxide (Magnesium Hydroxide 400 Mg/5 Ml Susp 30 Ml Cup) 30 ml PO Q12H PRN PRN Reason: Constipation Last Admin: 11/09/20 10:14 Dose: 30 ml Documented by: Melatonin (Melatonin 3 Mg Tab) 9 mg PO BEDTIME [facility] Last Admin: 11/10/20 20:29 Dose: 9 mg Documented by: Ondansetron HCl (Ondansetron 4 Mg/2 Ml Sdv) 4 mg IV Q6H PRN PRN Reason: Nausea/Vomiting Last Admin: 11/06/20 18:50 Dose: 4 mg Documented by: Ondansetron HCl (Ondansetron 4 Mg Tab.Dis) 4 mg PO Q6H PRN PRN Reason: Nausea able to take PO Pantoprazole Sodium (Pantoprazole 40 Mg Tab.Cr) 40 mg PO BIDAC [facility] Last Admin: 11/11/20 08:16 Dose: 40 mg Documented by: Senna/Docusate Sodium (Docusate Sodium/Sennosides 50-8.6 Mg Tab) 1 tab PO BID PRN PRN Reason: Constipation Thiamine HCl (Thiamine 100 Mg Tab) 100 mg PO DAILY [facility] Last Admin: 11/11/20 08:17 Dose: 100 mg Documented by: Discontinued Medications Gabapentin (Gabapentin 400 Mg Cap) 400 mg PO TID [facility] Last Admin: 11/09/20 10:00 Dose: Not Given Documented by: Multivitamins/Minerals 10 ml/Thiamine HCl 100 mg/ Folic Acid 1 mg/ Magnesium Sulfate 3 gm/ Sodium Chloride 1,017.2 mls @ 500 mls/hr IV ASDIRECTED ONE Stop: 11/06/20 17:17 Last Admin: 11/06/20 15:53 Dose: 500 mls/hr Documented by: Potassium Chloride 20 meq/ (Premix) 100 mls @ 50 mls/hr IV ONETIME ONE Stop: 11/06/20 17:36 Last Admin: 11/06/20 15:54 Dose: 50 mls/hr Documented by: Potassium Chloride (Kcl In Water 20 Meq/100 Ml) 100 mls @ 50 mls/hr IV Q2H [facility] Stop: 11/06/20 22:59 Last Admin: 11/06/20 21:22 Dose: 50 mls/hr Documented by: Potassium Chloride/Sodium Chloride (Normal Saline With 20 Meq Kcl) 1,000 mls @ 100 mls/hr IV ASDIRECTED [facility] Last Infusion: 11/07/20 09:47 Dose: 75 mls/hr Documented by: Ceftriaxone Sodium 1 gm/ (Sodium Chloride) 50 mls @ 100 mls/hr IV Q24H [facility] Last Admin: 11/09/20 16:34 Dose: Not Given Documented by: Potassium Chloride/Sodium Chloride (Normal Saline With 20 Meq Kcl) 1,000 mls @ 75 mls/hr IV ASDIRECTED [facility] Last Admin: 11/10/20 06:25 Dose: 75 mls/hr Documented by: Ceftriaxone Sodium 1 gm/ (Sodium Chloride) 50 mls @ 100 mls/hr IV ONETIME ONE Stop: 11/09/20 12:29 Last Admin: 11/09/20 11:49 Dose: 100 mls/hr Documented by: Lidocaine HCl (Lidocaine 1% 20 Ml Mdv) 2 ml .XX Q2H [facility] Stop: 11/06/20 21:01 Last Admin: 11/06/20 21:23 Dose: 2 ml Documented by: Lorazepam (Lorazepam 2 Mg/Ml Sdv) 1 mg IVPUSH ONETIME ONE Stop: 11/06/20 15:39 Last Admin: 11/06/20 15:55 Dose: 1 mg Documented by: Lorazepam (Lorazepam 1 Mg Tab) 0 mg PO ASDIRECTED [facility]; Protocol Lorazepam (Lorazepam 2 Mg/Ml Sdv) 0 mg IV ASDIRECTED [facility]; Protocol - Exam Quality Assessment: No: Supplemental Oxygen General: Alert, Oriented, Cooperative, No Acute Distress Lungs: Clear to Auscultation, Normal Respiratory Effort Cardiovascular: Regular Rhythm, Tachycardia GI/Abdominal Exam: Soft, Non-Tender, No Distention Extremities: No Pedal Edema. No: Increased Warmth Skin: Warm, Dry Psy/Mental Status: Alert, Normal Affect - Patient Data Lab Results Last 24 hrs: Laboratory Results - last 24 hr 11/11/20 Range/Units 05:20 Sodium 142 (140-148) mmol/L Potassium 3.6 (3.6-5.2) mmol/L Chloride 106 (100-108) mmol/L Carbon Dioxide 23 (21-32) mmol/L Anion Gap 12.6 (5.0-14.0) mmol/L BUN 5 L (7-18) mg/dL Creatinine 0.6 (0.6-1.0) mg/dL Est Cr Clr Drug Dosing 109.10 mL/min Estimated GFR (MDRD) > 60 (>60) Glucose 97 (74-106) mg/dL Calcium 8.6 (8.5-10.1) mg/dL Total Bilirubin 0.9 (0.2-1.0) mg/dL AST 95 H (15-37) U/L ALT 62 (12-78) U/L Alkaline Phosphatase 226 H (46-116) U/L Total Protein 6.8 (6.4-8.2) g/dL Albumin 2.2 L (3.4-5.0) g/dL Globulin 4.6 H (2.3-3.5) g/dL Albumin/Globulin Ratio 0.5 L (1.2-2.2) Result Diagrams: 11/10/20 04:05 11/11/20 05:20 Sepsis Event Note - Evaluation Sepsis Screening Result: No Definite Risk - Focused Exam Vital Signs: Vital Signs Temp Pulse Resp BP Pulse Ox 11/11/20 07:47 37.0 C 91 18 114/69 94 L 11/11/20 06:00 97 20 114/69 11/11/20 03:00 36.6 C 102 H 14 119/74 94 L 11/11/20 02:00 92 14 95 11/11/20 00:00 105 H 16 97 11/10/20 22:00 92 13 101/67 92 L - Problem List & Annotations (1) Alcohol withdrawal delirium, acute, hyperactive SNOMED Code(s): 6785179, 75596522, 37902349412304941 Code(s): F10.231 - ALCOHOL DEPENDENCE WITH WITHDRAWAL DELIRIUM Status: Acute Current Visit: Yes (2) Alcoholic hepatitis with ascites SNOMED Code(s): 8288807186453016 Code(s): K70.11 - ALCOHOLIC HEPATITIS WITH ASCITES Status: Acute Current Visit: Yes (3) Acute kidney injury SNOMED Code(s): 92488355, 49524608 Code(s): N17.9 - ACUTE KIDNEY FAILURE, UNSPECIFIED Status: Acute Current Visit: Yes (4) Acute hypoactive delirium due to another medical condition SNOMED Code(s): 4615944, 008389798, 727129200 Code(s): F05 - DELIRIUM DUE TO KNOWN PHYSIOLOGICAL CONDITION Status: Acute Current Visit: Yes (5) Hypokalemia SNOMED Code(s): 94915590 Code(s): E87.6 - HYPOKALEMIA Status: Acute Current Visit: Yes - Problem List Review Problem List Initiated/Reviewed/Updated: Yes - My Orders Last 24 Hours: My Active Orders 11/10/20 09:26 PT Evaluation and Treatment [CONS] Routine Convert IV to Saline Lock [OM.PC] Routine 11/11/20 09:46 Potassium Chloride [Klor-Con M20] 40 meq PO ONETIME ONE - Plan Plan:: ASSESSMENT AND PLAN - Alcohol withdrawal delirium-alcohol withdrawal seems to be dissipating. Strength is improving. She was able to feed herself today. Much less confusion. -CIWA protocol with lorazepam (may be able to discontinue later or tomorrow) -Gabapentin 200 mg 3 times a day (dose decreased) -Saline lock IV -Haldol for severe agitation -Melatonin at bedtime -Cardiac monitoring -Continue physical therapy Alcoholic hepatitis without ascites-improving with decreasing bilirubin. Ultrasound of the right upper quadrant unremarkable. -Repeat labs every other day -Additional management as below Alcohol abuse-persistent heavy use despite previous liver problems. She is fi urvashi coming out of alcohol withdrawal. -Supplement thiamine and folate Urinary tract infection-treatment complete. Hypokalemia-improved with supplementation but low normal today. -Dose of potassium this morning Maintenance issues - -DVT prophylaxis-mechanical -GI prophylaxis-PPI -Nutrition-regular diet -Bates catheter-not indicated Disposition -I anticipate discharge home after the hospital stay Doug Coley M.D.
[2020-11-11] MEDS ORDERED: Potassium Chloride 20 MEQ Tab.ER PO ONE (10:00)
[2020-11-11] MEDS: LORazepam 1 MG Tab PO PRN (12:53)
[2020-11-11] MEDS: Melatonin 3 MG Tab PO SCH (20:27)
[2020-11-12] MEDS: Pantoprazole 40 MG Tab.CR PO SCH ×2 (09:25→16:27)
[2020-11-12] MEDS: Thiamine 100 MG Tab PO SCH (09:25)
[2020-11-12] MEDS: Gabapentin 100 MG Cap PO SCH ×2 (09:25→14:08)
[2020-11-12] MEDS: Folic Acid 1 MG Tab PO SCH (09:25)
--- NOTE | 2020-11-12 09:38 | PCM.PN ---
- General Info Date of Service: 11/12/20 Subjective Update: There were no acute events overnight. Vital signs have been stable. Patient does continue to be confused and has difficulty with orientation. She still thinks that she is in [place], [place]. She is not sure what kind of building she is in. She does know its 2020 and thinks that the season in the spring but does not know what the month is. She reports that she feels okay physically. No report of headache, shortness of breath, nausea or abdominal pain. She does continue to intermittently require lorazepam though it has been infrequent. Functional Status: Reports: Pain Controlled, Tolerating Diet - Review of Systems General: Reports: Weakness Neurological: Reports: Confusion Psychiatric: Denies: Hallucinations - Patient Data Vitals - Most Recent: Last Vital Signs Temp 36.7 C 11/12/20 03:00 Pulse 95 11/12/20 07:00 Resp 13 11/12/20 07:00 BP 113/70 11/12/20 07:00 Pulse Ox 92 L 11/12/20 07:00 Weight - Most Recent: 78.6 kg I&O - Last 24 Hours: Intake & Output 11/11/20 11/12/20 11/12/20 22:59 06:59 14:59 Intake Total 1600 300 Output Total 600 650 Balance 1000 -350 Med Orders - Current: Current Medications Acetaminophen (Acetaminophen 325 Mg Tab) 650 mg PO Q4H PRN PRN Reason: Pain (Mild 1-3)/fever Folic Acid (Folic Acid 1 Mg Tab) 1 mg PO DAILY [facility] Last Admin: 11/12/20 09:25 Dose: 1 mg Documented by: Gabapentin (Gabapentin 100 Mg Cap) 200 mg PO TID [facility] Last Admin: 11/12/20 09:25 Dose: 200 mg Documented by: Haloperidol Lactate (Haloperidol Lactate 5 Mg/Ml Sdv) 2 mg IVPUSH Q4H PRN PRN Reason: severe agitation Last Admin: 11/09/20 17:47 Dose: 2 mg Documented by: Lorazepam (Lorazepam 2 Mg/Ml Sdv) 0.5 mg IVPUSH Q4H PRN PRN Reason: Nausea/Vomiting Lorazepam (Lorazepam 1 Mg Tab) 0 mg PO ASDIRECTED PRN; Protocol PRN Reason: Withdrawal Symptoms Last Admin: 11/11/20 12:53 Dose: 1 mg Documented by: Lorazepam (Lorazepam 2 Mg/Ml Sdv) 0 mg IV ASDIRECTED PRN; Protocol PRN Reason: Withdrawal Symptoms Last Admin: 11/09/20 23:59 Dose: 2 mg Documented by: Magnesium Hydroxide (Magnesium Hydroxide 400 Mg/5 Ml Susp 30 Ml Cup) 30 ml PO Q12H PRN PRN Reason: Constipation Last Admin: 11/09/20 10:14 Dose: 30 ml Documented by: Melatonin (Melatonin 3 Mg Tab) 9 mg PO BEDTIME [facility] Last Admin: 11/11/20 20:27 Dose: 9 mg Documented by: Ondansetron HCl (Ondansetron 4 Mg/2 Ml Sdv) 4 mg IV Q6H PRN PRN Reason: Nausea/Vomiting Last Admin: 11/06/20 18:50 Dose: 4 mg Documented by: Ondansetron HCl (Ondansetron 4 Mg Tab.Dis) 4 mg PO Q6H PRN PRN Reason: Nausea able to take PO Pantoprazole Sodium (Pantoprazole 40 Mg Tab.Cr) 40 mg PO BIDAC [facility] Last Admin: 11/12/20 09:25 Dose: 40 mg Documented by: Senna/Docusate Sodium (Docusate Sodium/Sennosides 50-8.6 Mg Tab) 1 tab PO BID PRN PRN Reason: Constipation Thiamine HCl (Thiamine 100 Mg Tab) 100 mg PO DAILY [facility] Last Admin: 11/12/20 09:25 Dose: 100 mg Documented by: Discontinued Medications Gabapentin (Gabapentin 400 Mg Cap) 400 mg PO TID [facility] Last Admin: 11/09/20 10:00 Dose: Not Given Documented by: Multivitamins/Minerals 10 ml/Thiamine HCl 100 mg/ Folic Acid 1 mg/ Magnesium Sulfate 3 gm/ Sodium Chloride 1,017.2 mls @ 500 mls/hr IV ASDIRECTED ONE Stop: 11/06/20 17:17 Last Admin: 11/06/20 15:53 Dose: 500 mls/hr Documented by: Potassium Chloride 20 meq/ (Premix) 100 mls @ 50 mls/hr IV ONETIME ONE Stop: 11/06/20 17:36 Last Admin: 11/06/20 15:54 Dose: 50 mls/hr Documented by: Potassium Chloride (Kcl In Water 20 Meq/100 Ml) 100 mls @ 50 mls/hr IV Q2H [facility] Stop: 11/06/20 22:59 Last Admin: 11/06/20 21:22 Dose: 50 mls/hr Documented by: Potassium Chloride/Sodium Chloride (Normal Saline With 20 Meq Kcl) 1,000 mls @ 100 mls/hr IV ASDIRECTED [facility] Last Infusion: 11/07/20 09:47 Dose: 75 mls/hr Documented by: Ceftriaxone Sodium 1 gm/ (Sodium Chloride) 50 mls @ 100 mls/hr IV Q24H [facility] Last Admin: 11/09/20 16:34 Dose: Not Given Documented by: Potassium Chloride/Sodium Chloride (Normal Saline With 20 Meq Kcl) 1,000 mls @ 75 mls/hr IV ASDIRECTED [facility] Last Admin: 11/10/20 06:25 Dose: 75 mls/hr Documented by: Ceftriaxone Sodium 1 gm/ (Sodium Chloride) 50 mls @ 100 mls/hr IV ONETIME ONE Stop: 11/09/20 12:29 Last Admin: 11/09/20 11:49 Dose: 100 mls/hr Documented by: Lidocaine HCl (Lidocaine 1% 20 Ml Mdv) 2 ml .XX Q2H [facility] Stop: 11/06/20 21:01 Last Admin: 11/06/20 21:23 Dose: 2 ml Documented by: Lorazepam (Lorazepam 2 Mg/Ml Sdv) 1 mg IVPUSH ONETIME ONE Stop: 11/06/20 15:39 Last Admin: 11/06/20 15:55 Dose: 1 mg Documented by: Lorazepam (Lorazepam 1 Mg Tab) 0 mg PO ASDIRECTED [facility]; Protocol Lorazepam (Lorazepam 2 Mg/Ml Sdv) 0 mg IV ASDIRECTED [facility]; Protocol Potassium Chloride (Potassium Chloride 20 Meq Tab.Er) 40 meq PO ONETIME ONE Stop: 11/11/20 10:01 Last Admin: 11/11/20 10:33 Dose: 40 meq Documented by: - Exam Quality Assessment: No: Supplemental Oxygen General: Alert, Cooperative, No Acute Distress. No: Oriented HEENT: Pupils Equal Lungs: Normal Respiratory Effort. No: Wheezing Cardiovascular: Regular Rate, Regular Rhythm GI/Abdominal Exam: Soft, Non-Tender, No Distention Extremities: No Pedal Edema. No: Increased Warmth Skin: Warm, Dry Psy/Mental Status: Alert. No: Agitated, Hallucinations - Patient Data Result Diagrams: 11/10/20 04:05 11/11/20 05:20 Sepsis Event Note - Evaluation Sepsis Screening Result: No Definite Risk - Focused Exam Vital Signs: Vital Signs Temp Pulse Resp BP Pulse Ox 11/12/20 07:00 95 13 113/70 92 L 11/12/20 05:00 13 110/68 93 L 11/12/20 03:00 36.7 C 12 103/65 94 L 11/12/20 01:00 36.6 C 14 117/80 95 11/11/20 23:00 36.6 C 13 125/78 94 L - Problem List & Annotations (1) Alcohol withdrawal delirium, acute, hyperactive SNOMED Code(s): 3905049, 95077355, 97456311096784647 Code(s): F10.231 - ALCOHOL DEPENDENCE WITH WITHDRAWAL DELIRIUM Status: Acute Current Visit: Yes (2) Alcoholic hepatitis with ascites SNOMED Code(s): 0739119468842915 Code(s): K70.11 - ALCOHOLIC HEPATITIS WITH ASCITES Status: Acute Current Visit: Yes (3) Acute kidney injury SNOMED Code(s): 87995237, 83338667 Code(s): N17.9 - ACUTE KIDNEY FAILURE, UNSPECIFIED Status: Acute Current Visit: Yes (4) Acute hypoactive delirium due to another medical condition SNOMED Code(s): 6679676, 294643256, 466362065 Code(s): F05 - DELIRIUM DUE TO KNOWN PHYSIOLOGICAL CONDITION Status: Acute Current Visit: Yes (5) Hypokalemia SNOMED Code(s): 98012027 Code(s): E87.6 - HYPOKALEMIA Status: Acute Current Visit: Yes - Problem List Review Problem List Initiated/Reviewed/Updated: Yes - My Orders Last 24 Hours: My Active Orders 11/12/20 09:45 Potassium Chloride [Klor-Con M20] 40 meq PO ONETIME ONE 11/13/20 05:00 BASIC METABOLIC PANEL,BMP [CHEM] Timed CBC W/O DIFF,HEMOGRAM [HEME] Timed (1) 11/13/20 09:00 Potassium Chloride [Klor-Con M20] 20 meq PO DAILY - Plan Plan:: ASSESSMENT AND PLAN - Alcohol withdrawal delirium-alcohol withdrawal seems to be dissipating. Strength is improving though she remains quite weak. Oriented to person and year at this time but not location. -CIWA protocol with lorazepam (discontinue IV lorazepam) -Gabapentin 200 mg 3 times a day (dose decreased) -Saline lock IV -Haldol for severe agitation -Melatonin at bedtime -Cardiac monitoring -Continue physical therapy Alcoholic hepatitis without ascites-improving with decreasing bilirubin. Ult rasound of the right upper quadrant unremarkable. -Repeat labs every other day -Additional management as below Alcohol abuse-persistent heavy use despite previous liver problems. She seems to be coming out of her alcohol withdrawal though remains fairly confused. -Supplement thiamine and folate Urinary tract infection-treatment complete. Hypokalemia-improved with supplementation but low normal again today. -Dose of potassium this morning -Start daily supplementation tomorrow Maintenance issues - -DVT prophylaxis-mechanical -GI prophylaxis-PPI -Nutrition-regular diet -Bates catheter-not indicated Disposition -I anticipate discharge home after the hospital stay Doug Coley M.D.
[2020-11-12] MEDS ORDERED: Potassium Chloride 20 MEQ Tab.ER PO ONE (10:00)
[2020-11-12] MEDS: Haloperidol 5 MG Tab PO PRN (16:27)
[2020-11-12] MEDS: Melatonin 3 MG Tab PO SCH (21:39)
[2020-11-13] MEDS ORDERED: Potassium Chloride 20 MEQ Tab.ER PO ONE (08:14)
[2020-11-13] MEDS: Pantoprazole 40 MG Tab.CR PO SCH ×2 (08:30→18:31)
[2020-11-13] MEDS: Thiamine 100 MG Tab PO SCH (08:31)
[2020-11-13] MEDS: Folic Acid 1 MG Tab PO SCH (08:31)
[2020-11-13] MEDS ORDERED: Loperamide 2 MG Cap PO PRN (12:19)
--- NOTE | 2020-11-13 12:24 | PCM.PN ---
- General Info Date of Service: 11/13/20 Subjective Update: Ms. Cueto has shown further modest improvement over the last 24 hours, less confused, more alert and interactive. Appetite and overall energy level seem to be slowly improving. Functional Status: Reports: Urinating. Denies: Ambulating - Review of Systems General: Reports: Weakness. Denies: Fever, Chills Pulmonary: Reports: No Symptoms Cardiovascular: Reports: No Symptoms Gastrointestinal: Reports: No Symptoms - Patient Data Vitals - Most Recent: Last Vital Signs Temp 97.8 F 11/13/20 07:48 Pulse 103 H 11/13/20 10:00 Resp 14 11/13/20 10:00 BP 124/79 11/13/20 10:00 Pulse Ox 95 11/13/20 10:00 Weight - Most Recent: 173 lb 4.533 oz I&O - Last 24 Hours: Intake & Output 11/12/20 11/13/20 11/13/20 22:59 06:59 14:59 Intake Total 2000 Output Total 250 Balance 2000 -250 Lab Results Last 24 Hours: Laboratory Results - last 24 hr 11/13/20 11/13/20 Range/Units 05:41 05:41 WBC 7.1 (4.5-11.0) K/uL RBC 2.88 L (3.30-5.50) M/uL Hgb 9.5 L (12.0-15.0) g/dL Hct 29.7 L (36.0-48.0) % MCV 103 H (80-98) fL MCH 33 H (27-31) pg MCHC 32 (32-36) % Plt Count 156 (150-400) K/uL Sodium 142 (140-148) mmol/L Potassium 3.3 L (3.6-5.2) mmol/L Chloride 105 (100-108) mmol/L Carbon Dioxide 25 (21-32) mmol/L Anion Gap 15.3 H (5.0-14.0) mmol/L BUN 4 L (7-18) mg/dL Creatinine 0.7 (0.6-1.0) mg/dL Est Cr Clr Drug Dosing 93.52 mL/min Estimated GFR (MDRD) > 60 (>60) Glucose 114 H (74-106) mg/dL Calcium 8.6 (8.5-10.1) mg/dL Med Orders - Current: Current Medications Acetaminophen (Acetaminophen 325 Mg Tab) 650 mg PO Q4H PRN PRN Reason: Pain (Mild 1-3)/fever Folic Acid (Folic Acid 1 Mg Tab) 1 mg PO DAILY [facility] Last Admin: 11/13/20 08:31 Dose: 1 mg Documented by: Haloperidol (Haloperidol 5 Mg Tab) 5 mg PO Q4H PRN PRN Reason: Agitation Last Admin: 11/12/20 16:27 Dose: 5 mg Documented by: Haloperidol Lactate (Haloperidol Lactate 5 Mg/Ml Sdv) 2 mg IVPUSH Q4H PRN PRN Reason: severe agitation Last Admin: 11/09/20 17:47 Dose: 2 mg Documented by: Loperamide HCl (Loperamide 2 Mg Cap) 2 mg PO Q4H PRN PRN Reason: Diarrhea Lorazepam (Lorazepam 2 Mg/Ml Sdv) 0.5 mg IVPUSH Q4H PRN PRN Reason: Nausea/Vomiting Lorazepam (Lorazepam 1 Mg Tab) 0 mg PO ASDIRECTED PRN; Protocol PRN Reason: Withdrawal Symptoms Last Admin: 11/11/20 12:53 Dose: 1 mg Documented by: Magnesium Hydroxide (Magnesium Hydroxide 400 Mg/5 Ml Susp 30 Ml Cup) 30 ml PO Q12H PRN PRN Reason: Constipation Last Admin: 11/09/20 10:14 Dose: 30 ml Documented by: Melatonin (Melatonin 3 Mg Tab) 9 mg PO BEDTIME [facility] Last Admin: 11/12/20 21:39 Dose: 9 mg Documented by: Ondansetron HCl (Ondansetron 4 Mg/2 Ml Sdv) 4 mg IV Q6H PRN PRN Reason: Nausea/Vomiting Last Admin: 11/06/20 18:50 Dose: 4 mg Documented by: Ondansetron HCl (Ondansetron 4 Mg Tab.Dis) 4 mg PO Q6H PRN PRN Reason: Nausea able to take PO Pantoprazole Sodium (Pantoprazole 40 Mg Tab.Cr) 40 mg PO BIDAC [facility] Last Admin: 11/13/20 08:30 Dose: 40 mg Documented by: Potassium Chloride (Potassium Chloride 20 Meq Tab.Er) 20 meq PO DAILY [facility] Senna/Docusate Sodium (Docusate Sodium/Sennosides 50-8.6 Mg Tab) 1 tab PO BID PRN PRN Reason: Constipation Thiamine HCl (Thiamine 100 Mg Tab) 100 mg PO DAILY [facility] Last Admin: 11/13/20 08:31 Dose: 100 mg Documented by: Discontinued Medications Gabapentin (Gabapentin 400 Mg Cap) 400 mg PO TID [facility] Last Admin: 11/09/20 10:00 Dose: Not Given Documented by: Gabapentin (Gabapentin 100 Mg Cap) 200 mg PO TID [facility] Last Admin: 11/12/20 14:08 Dose: 200 mg Documented by: Multivitamins/Minerals 10 ml/Thiamine HCl 100 mg/ Folic Acid 1 mg/ Magnesium Sulfate 3 gm/ Sodium Chloride 1,017.2 mls @ 500 mls/hr IV ASDIRECTED ONE Stop: 11/06/20 17:17 Last Admin: 11/06/20 15:53 Dose: 500 mls/hr Documented by: Potassium Chloride 20 meq/ (Premix) 100 mls @ 50 mls/hr IV ONETIME ONE Stop: 11/06/20 17:36 Last Admin: 11/06/20 15:54 Dose: 50 mls/hr Documented by: Potassium Chloride (Kcl In Water 20 Meq/100 Ml) 100 mls @ 50 mls/hr IV Q2H [facility] Stop: 11/06/20 22:59 Last Admin: 11/06/20 21:22 Dose: 50 mls/hr Documented by: Potassium Chloride/Sodium Chloride (Normal Saline With 20 Meq Kcl) 1,000 mls @ 100 mls/hr IV ASDIRECTED [facility] Last Infusion: 11/07/20 09:47 Dose: 75 mls/hr Documented by: Ceftriaxone Sodium 1 gm/ (Sodium Chloride) 50 mls @ 100 mls/hr IV Q24H [facility] Last Admin: 11/09/20 16:34 Dose: Not Given Documented by: Potassium Chloride/Sodium Chloride (Normal Saline With 20 Meq Kcl) 1,000 mls @ 75 mls/hr IV ASDIRECTED [facility] Last Admin: 11/10/20 06:25 Dose: 75 mls/hr Documented by: Ceftriaxone Sodium 1 gm/ (Sodium Chloride) 50 mls @ 100 mls/hr IV ONETIME ONE Stop: 11/09/20 12:29 Last Admin: 11/09/20 11:49 Dose: 100 mls/hr Documented by: Lidocaine HCl (Lidocaine 1% 20 Ml Mdv) 2 ml .XX Q2H [facility] Stop: 11/06/20 21:01 Last Admin: 11/06/20 21:23 Dose: 2 ml Documented by: Lorazepam (Lorazepam 2 Mg/Ml Sdv) 1 mg IVPUSH ONETIME ONE Stop: 11/06/20 15:39 Last Admin: 11/06/20 15:55 Dose: 1 mg Documented by: Lorazepam (Lorazepam 1 Mg Tab) 0 mg PO ASDIRECTED [facility]; Protocol Lorazepam (Lorazepam 2 Mg/Ml Sdv) 0 mg IV ASDIRECTED [facility]; Protocol Lorazepam (Lorazepam 2 Mg/Ml Sdv) 0 mg IV ASDIRECTED PRN; Protocol PRN Reason: Withdrawal Symptoms Last Admin: 11/09/20 23:59 Dose: 2 mg Documented by: Potassium Chloride (Potassium Chloride 20 Meq Tab.Er) 40 meq PO ONETIME ONE Stop: 11/11/20 10:01 Last Admin: 11/11/20 10:33 Dose: 40 meq Documented by: Potassium Chloride (Potassium Chloride 20 Meq Tab.Er) 40 meq PO ONETIME ONE Stop: 11/12/20 10:01 Last Admin: 11/12/20 10:16 Dose: 40 meq Documented by: Potassium Chloride (Potassium Chloride 20 Meq Tab.Er) 40 meq PO ONETIME ONE Stop: 11/13/20 08:15 Last Admin: 11/13/20 08:30 Dose: 40 meq Documented by: - Exam Quality Assessment: DVT Prophylaxis General: Alert, Oriented, Cooperative, Mild Distress Lungs: Clear to Auscultation, Normal Respiratory Effort Cardiovascular: Regular Rate, Regular Rhythm, No Murmurs GI/Abdominal Exam: Soft, Non-Tender, No Organomegaly, No Distention Extremities: Non-Tender, No Pedal Edema - Patient Data Lab Results Last 24 hrs: Laboratory Results - last 24 hr 11/13/20 11/13/20 Range/Units 05:41 05:41 WBC 7.1 (4.5-11.0) K/uL RBC 2.88 L (3.30-5.50) M/uL Hgb 9.5 L (12.0-15.0) g/dL Hct 29.7 L (36.0-48.0) % MCV 103 H (80-98) fL MCH 33 H (27-31) pg MCHC 32 (32-36) % Plt Count 156 (150-400) K/uL Sodium 142 (140-148) mmol/L Potassium 3.3 L (3.6-5.2) mmol/L Chloride 105 (100-108) mmol/L Carbon Dioxide 25 (21-32) mmol/L Anion Gap 15.3 H (5.0-14.0) mmol/L BUN 4 L (7-18) mg/dL Creatinine 0.7 (0.6-1.0) mg/dL Est Cr Clr Drug Dosing 93.52 mL/min Estimated GFR (MDRD) > 60 (>60) Glucose 114 H (74-106) mg/dL Calcium 8.6 (8.5-10.1) mg/dL Result Diagrams: 11/13/20 05:41 11/13/20 05:41 Sepsis Event Note - Evaluation Sepsis Screening Result: No Definite Risk - Focused Exam Vital Signs: Vital Signs Temp Pulse Resp BP Pulse Ox 11/13/20 10:00 103 H 14 124/79 95 11/13/20 07:48 97.8 F 97 13 106/63 92 L 11/13/20 06:00 93 13 106/63 92 L 11/13/20 04:00 94 15 125/84 93 L 11/13/20 02:00 97.9 F 99 15 131/76 94 L - Problem List Review Problem List Initiated/Reviewed/Updated: Yes - My Orders Last 24 Hours: My Active Orders 11/13/20 12:18 CLOS DIFFICILE PCR W/REFLEX [RM] Stat CULTURE STOOL + SHIGATOX [RM] Stat WBC, STOOL [OP] Stat 11/13/20 12:19 Loperamide [Imodium] 2 mg PO Q4H PRN 11/14/20 05:00 BASIC METABOLIC PANEL,BMP [CHEM] Timed - Plan Plan:: ASSESSMENT AND PLAN Alcohol withdrawal delirium-alcohol withdrawal seems to be dissipating. Strength is improving though she remains quite weak. -CIWA protocol with lorazepam (discontinue IV lorazepam) -Gabapentin 200 mg 3 times a day (dose decreased) -Saline lock IV -Haldol for severe agitation -Melatonin at bedtime -Cardiac monitoring -Continue physical therapy Alcoholic hepatitis without ascites-bilirubin has now normalized -Repeat labs every other day -Additional management as below Alcohol abuse-persistent heavy use despite previous liver problems. She seems to be coming out of her alcohol withdrawal though remains confused. -Supplement thiamine and folate Urinary tract infection-treatment complete. Hypokalemia-improved with supplementation but low normal again today. -Dose of potassium this morning -Start daily supplementation tomorrow Maintenance issues - -DVT prophylaxis-mechanical -GI prophylaxis-PPI -Nutrition-regular diet -Bates catheter-not indicated Disposition -I anticipate discharge home after the hospital stay
[2020-11-13] MEDS: Potassium Chloride 20 MEQ Tab.ER PO SCH (13:58)
[2020-11-13] MEDS: Melatonin 3 MG Tab PO SCH (21:12)
[2020-11-14] MEDS: Pantoprazole 40 MG Tab.CR PO SCH ×2 (08:01→16:21)
[2020-11-14] MEDS: Potassium Chloride 20 MEQ Tab.ER PO SCH (08:03)
[2020-11-14] MEDS: Thiamine 100 MG Tab PO SCH (08:03)
[2020-11-14] MEDS: Folic Acid 1 MG Tab PO SCH (08:03)
[2020-11-14] MEDS ORDERED: Potassium Chloride 20 MEQ Tab.ER PO ONE ×2 (08:30→17:00)
--- NOTE | 2020-11-14 14:28 | PCM.PN ---
- General Info Date of Service: 11/14/20 Subjective Update: Ms. Cueto has been stable since yesterday and shown further improvement in energy level as well as appetite. Confusion has improved but not resolved. Functional Status: Reports: Tolerating Diet, Urinating - Review of Systems General: Reports: Weakness, Fatigue. Denies: Fever, Chills Pulmonary: Reports: No Symptoms Cardiovascular: Reports: No Symptoms Gastrointestinal: Reports: No Symptoms Neurological: Reports: Confusion - Patient Data Vitals - Most Recent: Last Vital Signs Temp 97.1 F 11/14/20 12:00 Pulse 101 H 11/14/20 12:00 Resp 19 11/14/20 12:00 BP 110/88 11/14/20 12:00 Pulse Ox 95 11/14/20 12:00 Weight - Most Recent: 173 lb 4.533 oz I&O - Last 24 Hours: Intake & Output 11/13/20 11/14/20 11/14/20 22:59 06:59 14:59 Intake Total 600 400 640 Output Total 850 750 500 Balance -250 -350 140 Lab Results Last 24 Hours: Laboratory Results - last 24 hr 11/14/20 Range/Units 04:00 Sodium 143 (140-148) mmol/L Potassium 3.4 L (3.6-5.2) mmol/L Chloride 105 (100-108) mmol/L Carbon Dioxide 25 (21-32) mmol/L Anion Gap 16.4 H (5.0-14.0) mmol/L BUN 4 L (7-18) mg/dL Creatinine 0.7 (0.6-1.0) mg/dL Est Cr Clr Drug Dosing 93.52 mL/min Estimated GFR (MDRD) > 60 (>60) Glucose 101 (74-106) mg/dL Calcium 8.8 (8.5-10.1) mg/dL Enrrique Results Last 24 Hours: Microbiology 11/13/20 15:53 Stool Culture - Preliminary Stool / Feces NORMAL ENTERIC JYOTI 1 DAY Shiga Toxin I - Final NEGATIVE FOR SHIGA TOXIN 1 Shiga Toxin II - Final NEGATIVE FOR SHIGA TOXIN 2 REFERENCE RANGE: NEGATIVE Clostridioides difficile (PCR) - Final 11/13/20 15:53 Stool for WBCs - Final Stool / Feces NO WBC SEEN REFERENCE RANGE: NO WBC SEEN Med Orders - Current: Current Medications Acetaminophen (Acetaminophen 325 Mg Tab) 650 mg PO Q4H PRN PRN Reason: Pain (Mild 1-3)/fever Folic Acid (Folic Acid 1 Mg Tab) 1 mg PO DAILY [facility] Last Admin: 11/14/20 08:03 Dose: 1 mg Documented by: Haloperidol (Haloperidol 5 Mg Tab) 5 mg PO Q4H PRN PRN Reason: Agitation Last Admin: 11/12/20 16:27 Dose: 5 mg Documented by: Haloperidol Lactate (Haloperidol Lactate 5 Mg/Ml Sdv) 2 mg IVPUSH Q4H PRN PRN Reason: severe agitation Last Admin: 11/09/20 17:47 Dose: 2 mg Documented by: Loperamide HCl (Loperamide 2 Mg Cap) 2 mg PO Q4H PRN PRN Reason: Diarrhea Lorazepam (Lorazepam 2 Mg/Ml Sdv) 0.5 mg IVPUSH Q4H PRN PRN Reason: Nausea/Vomiting Lorazepam (Lorazepam 1 Mg Tab) 0 mg PO ASDIRECTED PRN; Protocol PRN Reason: Withdrawal Symptoms Last Admin: 11/11/20 12:53 Dose: 1 mg Documented by: Magnesium Hydroxide (Magnesium Hydroxide 400 Mg/5 Ml Susp 30 Ml Cup) 30 ml PO Q12H PRN PRN Reason: Constipation Last Admin: 11/09/20 10:14 Dose: 30 ml Documented by: Melatonin (Melatonin 3 Mg Tab) 9 mg PO BEDTIME [facility] Last Admin: 11/13/20 21:12 Dose: 9 mg Documented by: Ondansetron HCl (Ondansetron 4 Mg/2 Ml Sdv) 4 mg IV Q6H PRN PRN Reason: Nausea/Vomiting Last Admin: 11/06/20 18:50 Dose: 4 mg Documented by: Ondansetron HCl (Ondansetron 4 Mg Tab.Dis) 4 mg PO Q6H PRN PRN Reason: Nausea able to take PO Pantoprazole Sodium (Pantoprazole 40 Mg Tab.Cr) 40 mg PO BIDAC [facility] Last Admin: 11/14/20 08:01 Dose: 40 mg Documented by: Potassium Chloride (Potassium Chloride 20 Meq Tab.Er) 20 meq PO DAILY [facility] Last Admin: 11/14/20 08:03 Dose: 20 meq Documented by: Potassium Chloride (Potassium Chloride 20 Meq Tab.Er) 40 meq PO ONETIME ONE Stop: 11/14/20 17:01 Senna/Docusate Sodium (Docusate Sodium/Sennosides 50-8.6 Mg Tab) 1 tab PO BID PRN PRN Reason: Constipation Thiamine HCl (Thiamine 100 Mg Tab) 100 mg PO DAILY [facility] Last Admin: 11/14/20 08:03 Dose: 100 mg Documented by: Discontinued Medications Gabapentin (Gabapentin 400 Mg Cap) 400 mg PO TID [facility] Last Admin: 11/09/20 10:00 Dose: Not Given Documented by: Gabapentin (Gabapentin 100 Mg Cap) 200 mg PO TID [facility] Last Admin: 11/12/20 14:08 Dose: 200 mg Documented by: Multivitamins/Minerals 10 ml/Thiamine HCl 100 mg/ Folic Acid 1 mg/ Magnesium Sulfate 3 gm/ Sodium Chloride 1,017.2 mls @ 500 mls/hr IV ASDIRECTED ONE Stop: 11/06/20 17:17 Last Admin: 11/06/20 15:53 Dose: 500 mls/hr Documented by: Potassium Chloride 20 meq/ (Premix) 100 mls @ 50 mls/hr IV ONETIME ONE Stop: 11/06/20 17:36 Last Admin: 11/06/20 15:54 Dose: 50 mls/hr Documented by: Potassium Chloride (Kcl In Water 20 Meq/100 Ml) 100 mls @ 50 mls/hr IV Q2H [facility] Stop: 11/06/20 22:59 Last Admin: 11/06/20 21:22 Dose: 50 mls/hr Documented by: Potassium Chloride/Sodium Chloride (Normal Saline With 20 Meq Kcl) 1,000 mls @ [facility] Infusion: 11/07/20 09:47 Dose: 75 mls/hr Documented by: Ceftriaxone Sodium 1 gm/ (Sodium Chloride) 50 mls @ 100 mls/hr IV Q24H [facility] Last Admin: 11/09/20 16:34 Dose: Not Given Documented by: Potassium Chloride/Sodium Chloride (Normal Saline With 20 Meq Kcl) 1,000 mls @ 75 [facility]ls[facility] Last Admin: 11/10/20 06:25 Dose: 75 mls/hr Documented by: Ceftriaxone Sodium 1 gm/ (Sodium Chloride) 50 mls @ 100 mls/hr IV ONETIME ONE Stop: 11/09/20 12:29 Last Admin: 11/09/20 11:49 Dose: 100 mls/hr Documented by: Lidocaine HCl (Lidocaine 1% 20 Ml Mdv) 2 ml .XX Q2H [facility] Stop: 11/06/20 21:01 Last Admin: 11/06/20 21:23 Dose: 2 ml Documented by: Lorazepam (Lorazepam 2 Mg/Ml Sdv) 1 mg IVPUSH ONETIME ONE Stop: 11/06/20 15:39 Last Admin: 11/06/20 15:55 Dose: 1 mg Documented by: Lorazepam (Lorazepam 1 Mg Tab) 0 mg PO ASDIRECTED [facility]REG[facility]; Protocol Lorazepam (Lorazepam 2 Mg/Ml Sdv) 0 mg IV ASDIRECTED [facility]REG[facility]; Protocol Lorazepam (Lorazepam 2 Mg/Ml Sdv) 0 mg IV ASDIRECTED PRN; Protocol PRN Reason: Withdrawal Symptoms Last Admin: 11/09/20 23:59 Dose: 2 mg Documented by: Potassium Chloride (Potassium Chloride 20 Meq Tab.Er) 40 meq PO ONETIME ONE Stop: 11/11/20 10:01 Last Admin: 11/11/20 10:33 Dose: 40 meq Documented by: Potassium Chloride (Potassium Chloride 20 Meq Tab.Er) 40 meq PO ONETIME ONE Stop: 11/12/20 10:01 Last Admin: 11/12/20 10:16 Dose: 40 meq Documented by: Potassium Chloride (Potassium Chloride 20 Meq Tab.Er) 40 meq PO ONETIME ONE Stop: 11/13/20 08:15 Last Admin: 11/13/20 08:30 Dose: 40 meq Documented by: Potassium Chloride (Potassium Chloride 20 Meq Tab.Er) 40 meq PO ONETIME ONE Stop: 11/14/20 08:31 Last Admin: 11/14/20 08:27 Dose: 40 meq Documented by: - Exam General: Alert, Cooperative, Mild Distress. No: Oriented Lungs: Clear to Auscultation, Normal Respiratory Effort Cardiovascular: Regular Rate, Regular Rhythm, No Murmurs GI/Abdominal Exam: Soft, Non-Tender, No Organomegaly, No Distention Extremities: Non-Tender, No Pedal Edema - Patient Data Lab Results Last 24 hrs: Laboratory Results - last 24 hr 11/14/20 Range/Units 04:00 Sodium 143 (140-148) mmol/L Potassium 3.4 L (3.6-5.2) mmol/L Chloride 105 (100-108) mmol/L Carbon Dioxide 25 (21-32) mmol/L Anion Gap 16.4 H (5.0-14.0) mmol/L BUN 4 L (7-18) mg/dL Creatinine 0.7 (0.6-1.0) mg/dL Est Cr Clr Drug Dosing 93.52 mL/min Estimated GFR (MDRD) > 60 (>60) Glucose 101 (74-106) mg/dL Calcium 8.8 (8.5-10.1) mg/dL Result Diagrams: 11/13/20 05:41 11/14/20 04:00 Enrrique Results Last 24 hrs: Microbiology 11/13/20 15:53 Stool Culture - Preliminary Stool / Feces NORMAL ENTERIC JYOTI 1 DAY Shiga Toxin I - Final NEGATIVE FOR SHIGA TOXIN 1 Shiga Toxin II - Final NEGATIVE FOR SHIGA TOXIN 2 REFERENCE RANGE: NEGATIVE Clostridioides difficile (PCR) - Final 11/13/20 15:53 Stool for WBCs - Final Stool / Feces NO WBC SEEN REFERENCE RANGE: NO WBC SEEN Sepsis Event Note - Evaluation Sepsis Screening Result: No Definite Risk - Focused Exam Vital Signs: Vital Signs Temp Pulse Resp BP Pulse Ox 11/14/20 12:00 97.1 F 101 H 19 110/88 95 11/14/20 08:00 98.0 F 11 L 120/84 96 11/14/20 06:00 100 18 112/74 94 L 11/14/20 03:00 98.1 F 96 13 117/77 93 L - Problem List Review Problem List Initiated/Reviewed/Updated: Yes - My Orders Last 24 Hours: My Active Orders 11/13/20 15:53 CLOS DIFFICILE PCR W/REFLEX [RM] Stat CULTURE STOOL + SHIGATOX [RM] Stat 11/14/20 17:00 Potassium Chloride [Klor-Con M20] 40 meq PO ONETIME ONE 11/15/20 05:00 BASIC METABOLIC PANEL,BMP [CHEM] Timed - Plan Plan:: ASSESSMENT AND PLAN Alcohol withdrawal delirium-alcohol withdrawal seems to be dissipating. Strength is improving though she remains quite weak. Appetite improved, less confused today -CIWA protocol with lorazepam (discontinue IV lorazepam) -Saline lock IV -Haldol for severe agitation -Melatonin at bedtime -Cardiac monitoring -Continue physical therapy Alcoholic hepatitis without ascites-bilirubin has now normalized -Repeat labs every other day -Additional management as below Alcohol abuse-persistent heavy use despite previous liver problems. She seems to be coming out of her alcohol withdrawal though remains confused. -Supplement thiamine and folate Urinary tract infection-treatment complete. Hypokalemia-improved with supplementation but low normal again today. -Oral potassium replacement -Reassess potassium level in a.m. Maintenance issues - -DVT prophylaxis-mechanical -GI prophylaxis-PPI -Nutrition-regular diet -Bates catheter-not indicated Disposition -I anticipate discharge home after the hospital stay
[2020-11-14] MEDS: Melatonin 3 MG Tab PO SCH (20:55)
[2020-11-15] MEDS: Thiamine 100 MG Tab PO SCH (09:33)
[2020-11-15] MEDS: Pantoprazole 40 MG Tab.CR PO SCH ×2 (09:34→15:38)
[2020-11-15] MEDS: Potassium Chloride 20 MEQ Tab.ER PO SCH (09:34)
[2020-11-15] MEDS: Folic Acid 1 MG Tab PO SCH (09:34)
--- NOTE | 2020-11-15 09:55 | PCM.PN ---
- General Info Date of Service: 11/15/20 Subjective Update: Ms. Cueto has remained stable since yesterday. She does seem to be slowly improving from a cognitive standpoint and is less confused today. Functional Status: Reports: Tolerating Diet, Urinating - Review of Systems General: Reports: Weakness, Fatigue. Denies: Fever, Chills Pulmonary: Reports: No Symptoms Cardiovascular: Reports: No Symptoms Gastrointestinal: Reports: No Symptoms Genitourinary: Reports: No Symptoms - Patient Data Vitals - Most Recent: Last Vital Signs Temp 98.1 F 11/15/20 07:30 Pulse 96 11/15/20 03:06 Resp 20 11/15/20 07:30 BP 142/73 H 11/15/20 07:30 Pulse Ox 96 11/15/20 07:30 Weight - Most Recent: 173 lb 4.533 oz I&O - Last 24 Hours: Intake & Output 11/14/20 11/15/20 11/15/20 22:59 06:59 14:59 Intake Total 1200 Output Total 1050 700 200 Balance 150 -700 -200 Lab Results Last 24 Hours: Laboratory Results - last 24 hr 11/15/20 Range/Units 05:52 Sodium 141 (140-148) mmol/L Potassium 3.9 (3.6-5.2) mmol/L Chloride 105 (100-108) mmol/L Carbon Dioxide 25 (21-32) mmol/L Anion Gap 10.6 (5.0-14.0) mmol/L BUN 4 L (7-18) mg/dL Creatinine 0.8 (0.6-1.0) mg/dL Est Cr Clr Drug Dosing 81.83 mL/min Estimated GFR (MDRD) > 60 (>60) Glucose 109 H (74-106) mg/dL Calcium 9.3 (8.5-10.1) mg/dL Enrrique Results Last 24 Hours: Microbiology 11/13/20 15:53 Stool Culture - Preliminary Stool / Feces NORMAL ENTERIC JYOTI 2 DAYS Shiga Toxin I - Final NEGATIVE FOR SHIGA TOXIN 1 Shiga Toxin II - Final NEGATIVE FOR SHIGA TOXIN 2 REFERENCE RANGE: NEGATIVE Clostridioides difficile (PCR) - Final Med Orders - Current: Current Medications Acetaminophen (Acetaminophen 325 Mg Tab) 650 mg PO Q4H PRN PRN Reason: Pain (Mild 1-3)/fever Folic Acid (Folic Acid 1 Mg Tab) 1 mg PO DAILY REPLACED BY [facility] Last Admin: 11/15/20 09:34 Dose: 1 mg Documented by: Haloperidol (Haloperidol 5 Mg Tab) 5 mg PO Q4H PRN PRN Reason: Agitation Last Admin: 11/12/20 16:27 Dose: 5 mg Documented by: Haloperidol Lactate (Haloperidol Lactate 5 Mg/Ml Sdv) 2 mg IVPUSH Q4H PRN PRN Reason: severe agitation Last Admin: 11/09/20 17:47 Dose: 2 mg Documented by: Loperamide HCl (Loperamide 2 Mg Cap) 2 mg PO Q4H PRN PRN Reason: Diarrhea Lorazepam (Lorazepam 2 Mg/Ml Sdv) 0.5 mg IVPUSH Q4H PRN PRN Reason: Nausea/Vomiting Lorazepam (Lorazepam 1 Mg Tab) 0 mg PO ASDIRECTED PRN; Protocol PRN Reason: Withdrawal Symptoms Last Admin: 11/11/20 12:53 Dose: 1 mg Documented by: Magnesium Hydroxide (Magnesium Hydroxide 400 Mg/5 Ml Susp 30 Ml Cup) 30 ml PO Q12H PRN PRN Reason: Constipation Last Admin: 11/09/20 10:14 Dose: 30 ml Documented by: Melatonin (Melatonin 3 Mg Tab) 9 mg PO BEDTIME REPLACED BY [facility] Last Admin: 11/14/20 20:55 Dose: 9 mg Documented by: Ondansetron HCl (Ondansetron 4 Mg/2 Ml Sdv) 4 mg IV Q6H PRN PRN Reason: Nausea/Vomiting Last Admin: 11/06/20 18:50 Dose: 4 mg Documented by: Ondansetron HCl (Ondansetron 4 Mg Tab.Dis) 4 mg PO Q6H PRN PRN Reason: Nausea able to take PO Pantoprazole Sodium (Pantoprazole 40 Mg Tab.Cr) 40 mg PO BIDAC REPLACED BY [facility] Last Admin: 11/15/20 09:34 Dose: 40 mg Documented by: Potassium Chloride (Potassium Chloride 20 Meq Tab.Er) 20 meq PO DAILY REPLACED BY [facility] Last Admin: 11/15/20 09:34 Dose: 20 meq Documented by: Senna/Docusate Sodium (Docusate Sodium/Sennosides 50-8.6 Mg Tab) 1 tab PO BID PRN PRN Reason: Constipation Thiamine HCl (Thiamine 100 Mg Tab) 100 mg PO DAILY REPLACED BY [facility] Last Admin: 11/15/20 09:33 Dose: 100 mg Documented by: Discontinued Medications Gabapentin (Gabapentin 400 Mg Cap) 400 mg PO TID REPLACED BY [facility] Last Admin: 11/09/20 10:00 Dose: Not Given Documented by: Gabapentin (Gabapentin 100 Mg Cap) 200 mg PO TID REPLACED BY [facility] Last Admin: 11/12/20 14:08 Dose: 200 mg Documented by: Multivitamins/Minerals 10 ml/Thiamine HCl 100 mg/ Folic Acid 1 mg/ Magnesium Sulfate 3 gm/ Sodium Chloride 1,017.2 mls @ 500 mls/hr IV ASDIRECTED ONE Stop: 11/06/20 17:17 Last Admin: 11/06/20 15:53 Dose: 500 mls/hr Documented by: Potassium Chloride 20 meq/ (Premix) 100 mls @ 50 mls/hr IV ONETIME ONE Stop: 11/06/20 17:36 Last Admin: 11/06/20 15:54 Dose: 50 mls/hr Documented by: Potassium Chloride (Kcl In Water 20 Meq/100 Ml) 100 mls @ 50 mls/hr IV Q2H REPLACED BY [facility] Stop: 11/06/20 22:59 Last Admin: 11/06/20 21:22 Dose: 50 mls/hr Documented by: Potassium Chloride/Sodium Chloride (Normal Saline With 20 Meq Kcl) 1,000 mls @ 100 mls/hr IV ASDIRECTED REPLACED BY [facility] Last Infusion: 11/07/20 09:47 Dose: 75 mls/hr Documented by: Ceftriaxone Sodium 1 gm/ (Sodium Chloride) 50 mls @ 100 mls/hr IV Q24H REPLACED BY [facility] Last Admin: 11/09/20 16:34 Dose: Not Given Documented by: Potassium Chloride/Sodium Chloride (Normal Saline With 20 Meq Kcl) 1,000 mls @ 75 mls/hr IV ASDIRECTED REPLACED BY [facility] Last Admin: 11/10/20 06:25 Dose: 75 mls/hr Documented by: Ceftriaxone Sodium 1 gm/ (Sodium Chloride) 50 mls @ 100 mls/hr IV ONETIME ONE Stop: 11/09/20 12:29 Last Admin: 11/09/20 11:49 Dose: 100 mls/hr Documented by: Lidocaine HCl (Lidocaine 1% 20 Ml Mdv) 2 ml .XX Q2H REPLACED BY [facility] Stop: 11/06/20 21:01 Last Admin: 11/06/20 21:23 Dose: 2 ml Documented by: Lorazepam (Lorazepam 2 Mg/Ml Sdv) 1 mg IVPUSH ONETIME ONE Stop: 11/06/20 15:39 Last Admin: 11/06/20 15:55 Dose: 1 mg Documented by: Lorazepam (Lorazepam 1 Mg Tab) 0 mg PO ASDIRECTED [facility]; Protocol Lorazepam (Lorazepam 2 Mg/Ml Sdv) 0 mg IV ASDIRECTED [facility]; Protocol Lorazepam (Lorazepam 2 Mg/Ml Sdv) 0 mg IV ASDIRECTED PRN; Protocol PRN Reason: Withdrawal Symptoms Last Admin: 11/09/20 23:59 Dose: 2 mg Documented by: Potassium Chloride (Potassium Chloride 20 Meq Tab.Er) 40 meq PO ONETIME ONE Stop: 11/11/20 10:01 Last Admin: 11/11/20 10:33 Dose: 40 meq Documented by: Potassium Chloride (Potassium Chloride 20 Meq Tab.Er) 40 meq PO ONETIME ONE Stop: 11/12/20 10:01 Last Admin: 11/12/20 10:16 Dose: 40 meq Documented by: Potassium Chloride (Potassium Chloride 20 Meq Tab.Er) 40 meq PO ONETIME ONE Stop: 11/13/20 08:15 Last Admin: 11/13/20 08:30 Dose: 40 meq Documented by: Potassium Chloride (Potassium Chloride 20 Meq Tab.Er) 40 meq PO ONETIME ONE Stop: 11/14/20 08:31 Last Admin: 11/14/20 08:27 Dose: 40 meq Documented by: Potassium Chloride (Potassium Chloride 20 Meq Tab.Er) 40 meq PO ONETIME ONE Stop: 11/14/20 17:01 Last Admin: 11/14/20 16:21 Dose: 40 meq Documented by: - Exam Quality Assessment: DVT Prophylaxis General: Alert, Cooperative, Mild Distress. No: Oriented Lungs: Clear to Auscultation, Normal Respiratory Effort Cardiovascular: Regular Rate, Regular Rhythm, No Murmurs GI/Abdominal Exam: Soft, Non-Tender, No Organomegaly, No Distention Extremities: Non-Tender, No Pedal Edema - Patient Data Lab Results Last 24 hrs: Laboratory Results - last 24 hr 11/15/20 Range/Units 05:52 Sodium 141 (140-148) mmol/L Potassium 3.9 (3.6-5.2) mmol/L Chloride 105 (100-108) mmol/L Carbon Dioxide 25 (21-32) mmol/L Anion Gap 10.6 (5.0-14.0) mmol/L BUN 4 L (7-18) mg/dL Creatinine 0.8 (0.6-1.0) mg/dL Est Cr Clr Drug Dosing 81.83 mL/min Estimated GFR (MDRD) > 60 (>60) Glucose 109 H (74-106) mg/dL Calcium 9.3 (8.5-10.1) mg/dL Result Diagrams: 11/13/20 05:41 11/15/20 05:52 Enrrique Results Last 24 hrs: Microbiology 11/13/20 15:53 Stool Culture - Preliminary Stool / Feces NORMAL ENTERIC JYOTI 2 DAYS Shiga Toxin I - Final NEGATIVE FOR SHIGA TOXIN 1 Shiga Toxin II - Final NEGATIVE FOR SHIGA TOXIN 2 REFERENCE RANGE: NEGATIVE Clostridioides difficile (PCR) - Final Sepsis Event Note - Evaluation Sepsis Screening Result: No Definite Risk - Focused Exam Vital Signs: Vital Signs Temp Pulse Resp BP Pulse Ox 11/15/20 07:30 98.1 F 20 142/73 H 96 11/15/20 03:06 98.4 F 96 15 131/77 98 11/15/20 00:00 98.1 F 99 26 H 115/77 - Problem List Review Problem List Initiated/Reviewed/Updated: Yes - My Orders Last 24 Hours: My Active Orders 11/15/20 09:41 Consult to Physical Therapy [PT Evaluation and Treatment] [CONS] Routine 11/15/20 09:42 Patient Status [ADT] Routine 11/15/20 09:44 Discontinue Telemetry Monitoring [Cardiac Monitoring Discontinue] [RC] Click to Edit - Plan Plan:: ASSESSMENT AND PLAN Alcohol withdrawal delirium-no evidence of ongoing withdrawal, she does remain somewhat confused but seems to be getting better on a daily basis -Saline lock IV -Melatonin at bedtime -Continue physical therapy Alcoholic hepatitis without ascites-bilirubin has now normalized Alcohol abuse-persistent heavy use despite previous liver problems. She seems to be coming out of her alcohol withdrawal though remains confused. -Supplement thiamine and folate Urinary tract infection-treatment complete. Hypokalemia-improved Maintenance issues - -DVT prophylaxis-mechanical -GI prophylaxis-PPI -Nutrition-regular diet -Bates catheter-not indicated Disposition -I anticipate discharge home after the hospital stay
[2020-11-15] MEDS: Melatonin 3 MG Tab PO SCH (20:38)
[2020-11-16] MEDS: Pantoprazole 40 MG Tab.CR PO SCH ×2 (07:28→15:37)
[2020-11-16] MEDS: Potassium Chloride 20 MEQ Tab.ER PO SCH (08:38)
[2020-11-16] MEDS: Thiamine 100 MG Tab PO SCH (08:38)
[2020-11-16] MEDS: Folic Acid 1 MG Tab PO SCH (08:39)
--- NOTE | 2020-11-16 12:52 | PCM.PN ---
- General Info Date of Service: 11/16/20 Subjective Update: Ms. Cueto continues to show improvement in overall strength and appetite. She remains confused consistent with ongoing encephalopathy, likely related to her longstanding alcohol use. Functional Status: Reports: Tolerating Diet, Ambulating, Urinating - Review of Systems General: Reports: Weakness, Fatigue. Denies: Fever, Chills Pulmonary: Reports: No Symptoms Cardiovascular: Reports: No Symptoms Gastrointestinal: Reports: No Symptoms - Patient Data Vitals - Most Recent: Last Vital Signs Temp 98.2 F 11/16/20 10:25 Pulse 54 L 11/16/20 10:25 Resp 18 11/16/20 10:25 BP 112/71 11/16/20 10:25 Pulse Ox 97 11/16/20 10:25 Weight - Most Recent: 173 lb 4.533 oz I&O - Last 24 Hours: Intake & Output 11/15/20 11/16/20 11/16/20 22:59 06:59 14:59 Intake Total 840 500 740 Output Total 800 400 500 Balance 40 100 240 Enrrique Results Last 24 Hours: Microbiology 11/13/20 15:53 Stool Culture - Final Stool / Feces NORMAL ENTERIC JYOTI. NO SALMONELLA, SHIGELLA, CAMPYLOBACTER OR E.COLI O157 ISOLATED. Shiga Toxin I - Final NEGATIVE FOR SHIGA TOXIN 1 Shiga Toxin II - Final NEGATIVE FOR SHIGA TOXIN 2 REFERENCE RANGE: NEGATIVE Clostridioides difficile (PCR) - Final Med Orders - Current: Current Medications Acetaminophen (Acetaminophen 325 Mg Tab) 650 mg PO Q4H PRN PRN Reason: Pain (Mild 1-3)/fever Folic Acid (Folic Acid 1 Mg Tab) 1 mg PO DAILY [facility] Last Admin: 11/16/20 08:39 Dose: 1 mg Documented by: Haloperidol (Haloperidol 5 Mg Tab) 5 mg PO Q4H PRN PRN Reason: Agitation Last Admin: 11/12/20 16:27 Dose: 5 mg Documented by: Haloperidol Lactate (Haloperidol Lactate 5 Mg/Ml Sdv) 2 mg IVPUSH Q4H PRN PRN Reason: severe agitation Last Admin: 11/09/20 17:47 Dose: 2 mg Documented by: Loperamide HCl (Loperamide 2 Mg Cap) 2 mg PO Q4H PRN PRN Reason: Diarrhea Lorazepam (Lorazepam 2 Mg/Ml Sdv) 0.5 mg IVPUSH Q4H PRN PRN Reason: Nausea/Vomiting Magnesium Hydroxide (Magnesium Hydroxide 400 Mg/5 Ml Susp 30 Ml Cup) 30 ml PO Q12H PRN PRN Reason: Constipation Last Admin: 11/09/20 10:14 Dose: 30 ml Documented by: Melatonin (Melatonin 3 Mg Tab) 9 mg PO BEDTIME [facility] Last Admin: 11/15/20 20:38 Dose: 9 mg Documented by: Ondansetron HCl (Ondansetron 4 Mg/2 Ml Sdv) 4 mg IV Q6H PRN PRN Reason: Nausea/Vomiting Last Admin: 11/06/20 18:50 Dose: 4 mg Documented by: Ondansetron HCl (Ondansetron 4 Mg Tab.Dis) 4 mg PO Q6H PRN PRN Reason: Nausea able to take PO Pantoprazole Sodium (Pantoprazole 40 Mg Tab.Cr) [facility] Last Admin: 11/16/20 07:28 Dose: 40 mg Documented by: Potassium Chloride (Potassium Chloride 20 Meq Tab.Er) 20 meq PO DAILY [facility] Last Admin: 11/16/20 08:38 Dose: 20 meq Documented by: Senna/Docusate Sodium (Docusate Sodium/Sennosides 50-8.6 Mg Tab) 1 tab PO BID PRN PRN Reason: Constipation Thiamine HCl (Thiamine 100 Mg Tab) 100 mg PO DAILY [facility] Last Admin: 11/16/20 08:38 Dose: 100 mg Documented by: Discontinued Medications Gabapentin (Gabapentin 400 Mg Cap) 400 mg PO TID [facility] Last Admin: 11/09/20 10:00 Dose: Not Given Documented by: Gabapentin (Gabapentin 100 Mg Cap) 200 mg PO TID [facility] Last Admin: 11/12/20 14:08 Dose: 200 mg Documented by: Multivitamins/Minerals 10 ml/Thiamine HCl 100 mg/ Folic Acid 1 mg/ Magnesium Sulfate 3 gm/ Sodium Chloride 1,017.2 mls @ 500 mls/hr IV ASDIRECTED ONE Stop: 11/06/20 17:17 Last Admin: 11/06/20 15:53 Dose: 500 mls/hr Documented by: Potassium Chloride 20 meq/ (Premix) 100 mls @ 50 mls/hr IV ONETIME ONE Stop: 11/06/20 17:36 Last Admin: 11/06/20 15:54 Dose: 50 mls/hr Documented by: Potassium Chloride (Kcl In Water 20 Meq/100 Ml) 100 mls @ 50 mls/hr IV Q2H [facility] Stop: 11/06/20 22:59 Last Admin: 11/06/20 21:22 Dose: 50 mls/hr Documented by: Potassium Chloride/Sodium Chloride (Normal Saline With 20 Meq Kcl) 1,000 mls @ 100 mls/hr IV ASDIRECTED [facility] Last Infusion: 11/07/20 09:47 Dose: 75 mls/hr Documented by: Ceftriaxone Sodium 1 gm/ (Sodium Chloride) 50 mls @ 100 mls/hr IV Q24H [facility] Last Admin: 11/09/20 16:34 Dose: Not Given Documented by: Potassium Chloride/Sodium Chloride (Normal Saline With 20 Meq Kcl) 1,000 mls @ 75 mls/hr IV ASDIRECTED [facility] Last Admin: 11/10/20 06:25 Dose: 75 mls/hr Documented by: Ceftriaxone Sodium 1 gm/ (Sodium Chloride) 50 mls @ 100 mls/hr IV ONETIME ONE Stop: 11/09/20 12:29 Last Admin: 11/09/20 11:49 Dose: 100 mls/hr Documented by: Lidocaine HCl (Lidocaine 1% 20 Ml Mdv) 2 ml .XX Q2H [facility] Stop: 11/06/20 21:01 Last Admin: 11/06/20 21:23 Dose: 2 ml Documented by: Lorazepam (Lorazepam 2 Mg/Ml Sdv) 1 mg IVPUSH ONETIME ONE Stop: 11/06/20 15:39 Last Admin: 11/06/20 15:55 Dose: 1 mg Documented by: Lorazepam (Lorazepam 1 Mg Tab) 0 mg PO ASDIRECTED [facility]; Protocol Lorazepam (Lorazepam 2 Mg/Ml Sdv) 0 mg IV ASDIRECTED [facility]; Protocol Lorazepam (Lorazepam 1 Mg Tab) 0 mg PO ASDIRECTED PRN; Protocol PRN Reason: Withdrawal Symptoms Last Admin: 11/11/20 12:53 Dose: 1 mg Documented by: Lorazepam (Lorazepam 2 Mg/Ml Sdv) 0 mg IV ASDIRECTED PRN; Protocol PRN Reason: Withdrawal Symptoms Last Admin: 11/09/20 23:59 Dose: 2 mg Documented by: Potassium Chloride (Potassium Chloride 20 Meq Tab.Er) 40 meq PO ONETIME ONE Stop: 11/11/20 10:01 Last Admin: 11/11/20 10:33 Dose: 40 meq Documented by: Potassium Chloride (Potassium Chloride 20 Meq Tab.Er) 40 meq PO ONETIME ONE Stop: 11/12/20 10:01 Last Admin: 11/12/20 10:16 Dose: 40 meq Documented by: Potassium Chloride (Potassium Chloride 20 Meq Tab.Er) 40 meq PO ONETIME ONE Stop: 11/13/20 08:15 Last Admin: 11/13/20 08:30 Dose: 40 meq Documented by: Potassium Chloride (Potassium Chloride 20 Meq Tab.Er) 40 meq PO ONETIME ONE Stop: 11/14/20 08:31 Last Admin: 11/14/20 08:27 Dose: 40 meq Documented by: Potassium Chloride (Potassium Chloride 20 Meq Tab.Er) 40 meq PO ONETIME ONE Stop: 11/14/20 17:01 Last Admin: 11/14/20 16:21 Dose: 40 meq Documented by: - Exam Quality Assessment: DVT Prophylaxis General: Alert, Cooperative, Mild Distress. No: Oriented Lungs: Clear to Auscultation, Normal Respiratory Effort Cardiovascular: Regular Rate, Regular Rhythm, No Murmurs GI/Abdominal Exam: Soft, Non-Tender, No Organomegaly, No Distention Extremities: Non-Tender, No Pedal Edema - Patient Data Result Diagrams: 11/13/20 05:41 11/15/20 05:52 Enrrique Results Last 24 hrs: Microbiology 11/13/20 15:53 Stool Culture - Final Stool / Feces NORMAL ENTERIC JYOTI. NO SALMONELLA, SHIGELLA, CAMPYLOBACTER OR E.COLI O157 ISOLATED. Shiga Toxin I - Final NEGATIVE FOR SHIGA TOXIN 1 Shiga Toxin II - Final NEGATIVE FOR SHIGA TOXIN 2 REFERENCE RANGE: NEGATIVE Clostridioides difficile (PCR) - Final Sepsis Event Note - Evaluation Sepsis Screening Result: No Definite Risk - Focused Exam Vital Signs: Vital Signs Temp Pulse Resp BP Pulse Ox 11/16/20 10:25 98.2 F 54 L 18 112/71 97 11/16/20 07:29 98.1 F 112 H 16 120/87 94 L 11/16/20 04:00 98.0 F 100 18 107/69 100 - Problem List Review Problem List Initiated/Reviewed/Updated: Yes - Plan Plan:: ASSESSMENT AND PLAN Alcohol withdrawal delirium-no evidence of ongoing withdrawal, she continues to experience confusion related to encephalopathy, likely related to longstanding alcohol use -Saline lock IV -Melatonin at bedtime -Continue physical therapy Alcoholic hepatitis without ascites-bilirubin has now normalized Alcohol abuse-persistent heavy use despite previous liver problems. She seems to be coming out of her alcohol withdrawal though remains confused. -Supplement thiamine and folate Urinary tract infection-treatment complete. Hypokalemia-improved Maintenance issues - -DVT prophylaxis-mechanical -GI prophylaxis-PPI -Nutrition-regular diet -Bates catheter-not indicated Disposition -I anticipate discharge home tomorrow
--- NOTE | 2020-11-16 15:34 | CR ---
Ankle Min 3V Lt CLINICAL HISTORY: Fall FINDINGS: The soft tissues are swollen. There is a trimalleolar fracture with some dislocation. There is lateral subluxation of the talus at the tibiotalar joint. Impression: Displaced trimalleolar fracture with some lateral talar subluxation
--- NOTE | 2020-11-16 15:50 | PCM.SN.2 ---
- Free Text/Narrative Note: Ms. Cueto was found sitting on the floor this afternoon by nursing staff, she apparently had been able to remove the tray on her Libby chair. Staff was able to help her up but she was noted to have significant pain of her left ankle. X- ray was obtained and documents a displaced trimalleolar fracture of the left ankle. I have contacted Dr. Byrd for an orthopedic consult. He will see her this afternoon and she will likely require surgical repair of the fracture.
[2020-11-16] MEDS ORDERED: Morphine 2 MG/ML SYRINGE IVPUSH PRN (16:44)
--- NOTE | 2020-11-16 16:55 | PCM.CONS ---
H&P History of Present Illness - General Date of Service: 11/16/20 Admit Problem/Dx: Admission Diagnosis/Problem Admission Diagnosis/Problem Alcoholic hepatitis with ascites Source of Information: Provider History Limitations: Reports: Altered Mental Status - History of Present Illness Initial Comments - Free Text/Narative: Asked to see 45 year old female inpatient with ankle pain and deformity after an unwitnessed fall in her room. Patient has been in house being treated for alcohol withdrawal delirium. She continues to be confused and was found on the floor of her room with ankle pain and swelling. X-rays confirm a fracture of the left ankle. Onset of Symptoms: Reports: Today Location: Reports: Lower Extremity, Left Quality: Reports: Sharp Severity: Severe Improves with: Reports: Immobilization Worsens with: Reports: Movement Bilateral Wrist Pain Score (Numeric/FACES): 5 - Related Data Allergies/Adverse Reactions: Allergies Allergy/AdvReac Type Severity Reaction Status Date / Time No Known Allergies Allergy Verified 11/06/20 14:51 Home Medications: Home Meds Omeprazole 20 mg PO DAILY 11/06/20 [History] Potassium Chloride [Klor-Con M20] 40 meq PO DAILY 11/06/20 [History] Past Medical History - Past Health History Medical/Surgical History: Denies Medical/Surgical History HEENT History: Reports: Impaired Vision Gastrointestinal History: Reports: GERD Psychiatric History: Reports: Addiction - Infectious Disease History Infectious Disease History: Reports: Chicken Pox - Past Surgical History Female Surgical History: Reports: Other (See Below) Other Female Surgeries/Procedures: past kidney failure with dialysis Social & Family History - Family History Family Medical History: Unobtainable - Tobacco Use Tobacco Use Status *Q: Unknown Ever Used Tobacco - Caffeine Use Caffeine Use: Reports: None - Alcohol Use Days Per Week of Alcohol Use: 7 Number of Drinks Per Day: 1 Total Drinks Per Week: 7 Date of Last Drink: 11/05/20 Time of Last Drink: 16:00 - Recreational Drug Use Recreational Drug Use: No H&P Review of Systems - Review of Systems: Review Of Systems: See Below Musculoskeletal: Reports: Joint Pain (left ankle), Joint Swelling Psychiatric: Reports: Confusion Exam - Exam Exam: See Below - Vital Signs Vital Signs: Last Vital Signs Temp 36.4 C 11/16/20 16:15 Pulse 107 H 11/16/20 16:15 Resp 20 11/16/20 16:15 BP 124/81 11/16/20 16:15 Pulse Ox 96 11/16/20 16:15 Weight: 78.6 kg - Exam Extremities: Joint Swelling, Limited Range of Motion, Other (mild deformity of left ankle) Skin: Warm, Dry, Intact Neuro Extensive - Mental Status: Disorientation to Time - Patient Data Result Diagrams: 11/13/20 05:41 11/15/20 05:52 Enrrique Results Last 24 hrs: Microbiology 11/13/20 15:53 Stool Culture - Final Stool / Feces NORMAL ENTERIC JYOTI. NO SALMONELLA, SHIGELLA, CAMPYLOBACTER OR E.COLI O157 ISOLATED. Shiga Toxin I - Final NEGATIVE FOR SHIGA TOXIN 1 Shiga Toxin II - Final NEGATIVE FOR SHIGA TOXIN 2 REFERENCE RANGE: NEGATIVE Clostridioides difficile (PCR) - Final Sepsis Event Note - Evaluation Sepsis Screening Result: No Definite Risk - Focused Exam Vital Signs: Vital Signs Temp Pulse Resp BP Pulse Ox 11/16/20 16:15 36.4 C 107 H 20 124/81 96 11/16/20 15:15 36.5 C 111 H 20 134/86 93 L 11/16/20 14:45 37.4 C 109 H 16 125/71 95 11/16/20 10:25 36.8 C 54 L 18 112/71 97 11/16/20 07:29 36.7 C 112 H 16 120/87 94 L Consult PN Assessment/Plan Procedures: Procedures ASSAY OF AMMONIA (11/28/15) ASSAY OF AMYLASE (11/28/15) ASSAY OF LACTIC ACID (11/28/15) ASSAY OF LIPASE (11/28/15) BREAST TOMOSYNTHESIS BI (02/07/20) C-REACTIVE PROTEIN (10/14/17) COMP SCREEN MAMMOGRAM ADD-ON (04/22/16) COMPLETE CBC W/AUTO DIFF WBC (10/14/17) COMPREHEN METABOLIC PANEL (11/28/15) COMPUTER DX MAMMOGRAM ADD-ON (04/24/16) CT SOFT TISSUE NECK W/DYE (10/14/17) EMERGENCY DEPT VISIT (10/14/17) EMERGENCY DEPT VISIT (11/28/15) METABOLIC PANEL TOTAL CA (10/14/17) NOS EACH ORGANISM AG IA (11/28/15) PROTHROMBIN TIME (11/28/15) ROUTINE VENIPUNCTURE (10/14/17) SCR MAMMO BI INCL CAD (02/07/20) THROMBOPLASTIN TIME PARTIAL (11/28/15) ULTRASOUND BREAST LIMITED (04/03/20) URINALYSIS AUTO W/SCOPE (11/28/15) URINE TEST (11/28/15) (1) Bimalleolar ankle fracture SNOMED Code(s): 815969394 Code(s): S82.843A - DISPLACED BIMALLEOLAR FRACTURE OF UNSP LOWER LEG, INIT Current Visit: Yes Qualifiers: Encounter type: initial encounter Fracture type: closed Laterality: left Qualified Code(s): S82.842A - Displaced bimalleolar fracture of left lower leg, initial encounter for closed fracture Problem List Initiated/Reviewed/Updated: Yes My Orders Last 24 Hours: My Active Orders 11/16/20 16:42 Verify Patient Consent Obtain [RC] ASDIRECTED 11/16/20 16:43 Acetaminophen/HYDROcodone [[place] 325-5 MG] 1 tab PO Q3H PRN 11/16/20 16:44 Morphine 1 mg IVPUSH Q2H PRN 11/16/20 Dinner NPO After Midnight [Nothing per Oral After Midnight Diet] [DIET] 11/17/20 12:00 ceFAZolin [Ancef 1 GM/50 ML] 1 gm Premix Bag 1 bag IV ONETIME Plan: IMP: Unstable bimalleolar fracture of left ankle. Short leg fiberglass splint applied. Recommend open reduction and internal fixation of ankle. She is an extremely poor candidate for non-operative treatment and cannot be compliant with non-weightbearing. ORIF will allow weight bearing as tolerated. PLAN: Will add onto OR schedule for tomorrow. Obtain consent from . Anticipate surgery sometime after no11/17.
[2020-11-16] MEDS: Haloperidol 5 MG Tab PO PRN ×2 (17:47→23:31)
[2020-11-16] MEDS: Acetaminophen/HYDROcodone 325-5 MG Tab PO PRN ×2 (18:32→23:30)
[2020-11-16] MEDS: Melatonin 3 MG Tab PO SCH (21:04)
[2020-11-17] MEDS: Acetaminophen/HYDROcodone 325-5 MG Tab PO PRN (03:43)
[2020-11-17] MEDS: Potassium Chloride 20 MEQ Tab.ER PO SCH (09:52)
[2020-11-17] MEDS: Pantoprazole 40 MG Tab.CR PO SCH ×2 (09:52→17:01)
[2020-11-17] MEDS: Folic Acid 1 MG Tab PO SCH (09:52)
[2020-11-17] MEDS: Thiamine 100 MG Tab PO SCH (09:53)
[2020-11-17] MEDS ORDERED: Bupivacaine 0.5% 30 ML SDV ONE (10:34)
[2020-11-17] MEDS ORDERED: Ondansetron 4 MG/2 ML SDV ONE (10:49)
[2020-11-17] MEDS ORDERED: Neostigmine Methylsulfate 1 MG/ML 5 ML Syringe ONE (10:49)
[2020-11-17] MEDS ORDERED: Succinylcholine 200 MG/10 ML MDV ONE (10:49)
[2020-11-17] MEDS ORDERED: Dexamethasone 4 MG/ML SDV ONE (10:49)
[2020-11-17] MEDS ORDERED: Glycopyrrolate 0.2 MG/ML 5 ML MDV ONE (10:49)
[2020-11-17] MEDS ORDERED: Propofol 200 MG/20 ML SDV ONE (10:49)
[2020-11-17] MEDS ORDERED: Rocuronium 50 MG/5 ML Vial ONE (10:49)
[2020-11-17] MEDS ORDERED: fentaNYL 250 MCG/5 ML SDV ONE ×2 (10:51→13:49)
[2020-11-17] MEDS ORDERED: ceFAZolin 1 GM in Premix Bag 1 BAG IV ONE (12:00)
--- NOTE | 2020-11-17 18:01 | PCM.PN ---
- General Info Date of Service: 11/17/20 Subjective Update: Ms. Cueto has been stable following surgical repair of her ankle fracture earlier today. She remains confused and impulsive. She is unable to provide meaningful history concerning review of systems or recent symptoms because of her confusion. - Patient Data Vitals - Most Recent: Last Vital Signs Temp 97.5 F 11/17/20 17:01 Pulse 89 11/17/20 17:42 Resp 12 11/17/20 17:42 BP 119/73 11/17/20 17:42 Pulse Ox 93 L 11/17/20 17:42 Weight - Most Recent: 173 lb 4.533 oz I&O - Last 24 Hours: Intake & Output 11/17/20 11/17/20 11/17/20 06:59 14:59 22:59 Output Total 500 Balance -500 Med Orders - Current: Current Medications Acetaminophen (Acetaminophen 325 Mg Tab) 650 mg PO Q4H PRN PRN Reason: Pain (Mild 1-3)/fever Last Admin: 11/16/20 16:20 Dose: 650 mg Documented by: Hydrocodone Bitart/Acetaminophen (Acetaminophen/Hydrocodone 325-5 Mg Tab) 1 tab PO Q3H PRN PRN Reason: Pain (moderate 4-6) Last Admin: 11/17/20 03:43 Dose: 1 tab Documented by: Folic Acid (Folic Acid 1 Mg Tab) 1 mg PO DAILY [facility] Last Admin: 11/17/20 09:52 Dose: Not Given Documented by: Haloperidol (Haloperidol 5 Mg Tab) 5 mg PO Q4H PRN PRN Reason: Agitation Last Admin: 11/16/20 23:31 Dose: 5 mg Documented by: Haloperidol Lactate (Haloperidol Lactate 5 Mg/Ml Sdv) 2 mg IVPUSH Q4H PRN PRN Reason: severe agitation Last Admin: 11/09/20 17:47 Dose: 2 mg Documented by: Loperamide HCl (Loperamide 2 Mg Cap) 2 mg PO Q4H PRN PRN Reason: Diarrhea Lorazepam (Lorazepam 2 Mg/Ml Sdv) 0.5 mg IVPUSH Q4H PRN PRN Reason: Nausea/Vomiting Last Admin: 11/09/20 11:46 Dose: 0.5 mg Documented by: Magnesium Hydroxide (Magnesium Hydroxide 400 Mg/5 Ml Susp 30 Ml Cup) 30 ml PO Q12H PRN PRN Reason: Constipation Last Admin: 11/09/20 10:14 Dose: 30 ml Documented by: Melatonin (Melatonin 3 Mg Tab) 9 mg PO BEDTIME [facility] Last Admin: 11/16/20 21:04 Dose: 9 mg Documented by: Morphine Sulfate (Morphine 2 Mg/Ml Syringe) 1 mg IVPUSH Q2H PRN PRN Reason: Pain (severe 7-10) Last Admin: 11/17/20 11:50 Dose: 1 mg Documented by: Ondansetron HCl (Ondansetron 4 Mg/2 Ml Sdv) 4 mg IV Q6H PRN PRN Reason: Nausea/Vomiting Last Admin: 11/06/20 18:50 Dose: 4 mg Documented by: Ondansetron HCl (Ondansetron 4 Mg Tab.Dis) 4 mg PO Q6H PRN PRN Reason: Nausea able to take PO Pantoprazole Sodium (Pantoprazole 40 Mg Tab.Cr) 40 mg PO BIDAC [facility] Last Admin: 11/17/20 17:01 Dose: Not Given Documented by: Potassium Chloride (Potassium Chloride 20 Meq Tab.Er) 20 meq PO DAILY [facility] Last Admin: 11/17/20 09:52 Dose: Not Given Documented by: Senna/Docusate Sodium (Docusate Sodium/Sennosides 50-8.6 Mg Tab) 1 tab PO BID PRN PRN Reason: Constipation Thiamine HCl (Thiamine 100 Mg Tab) 100 mg PO DAILY [facility] Last Admin: 11/17/20 09:53 Dose: Not Given Documented by: Discontinued Medications Bupivacaine HCl (Bupivacaine 0.5% 30 Ml Sdv) Confirm Administered Dose 30 ml .ROUTE .STK-MED ONE Stop: 11/17/20 10:35 Last Admin: 11/17/20 14:39 Dose: 20 ml Documented by: Dexamethasone (Dexamethasone 4 Mg/Ml Sdv) Confirm Administered Dose 4 mg .ROUTE .STK-MED ONE Stop: 11/17/20 10:50 Fentanyl (Fentanyl 250 Mcg/5 Ml Sdv) Confirm Administered Dose 250 mcg .ROUTE .STK-MED ONE Stop: 11/17/20 10:52 Fentanyl (Fentanyl 250 Mcg/5 Ml Sdv) Confirm Administered Dose 250 mcg .ROUTE .STK-MED ONE Stop: 11/17/20 13:50 Gabapentin (Gabapentin 400 Mg Cap) 400 mg PO TID [facility] Last Admin: 11/09/20 10:00 Dose: Not Given Documented by: Gabapentin (Gabapentin 100 Mg Cap) 200 mg PO TID [facility] Last Admin: 11/12/20 14:08 Dose: 200 mg Documented by: Glycopyrrolate (Glycopyrrolate 0.2 Mg/Ml 5 Ml Mdv) Confirm Administered Dose 1 mg .ROUTE .STK-MED ONE Stop: 11/17/20 10:50 Multivitamins/Minerals 10 ml/Thiamine HCl 100 mg/ Folic Acid 1 mg/ Magnesium Sulfate 3 gm/ Sodium Chloride 1,017.2 mls @ 500 mls/hr IV ASDIRECTED ONE Stop: 11/06/20 17:17 Last Admin: 11/06/20 15:53 Dose: 500 mls/hr Documented by: Potassium Chloride 20 meq/ (Premix) 100 mls @ 50 mls/hr IV ONETIME ONE Stop: 11/06/20 17:36 Last Admin: 11/06/20 15:54 Dose: 50 mls/hr Documented by: Potassium Chloride (Kcl In Water 20 Meq/100 Ml) 100 mls @ 50 mls/hr IV Q2H [facility] Stop: 11/06/20 22:59 Last Admin: 11/06/20 21:22 Dose: 50 mls/hr Documented by: Potassium Chloride/Sodium Chloride (Normal Saline With 20 Meq Kcl) 1,000 mls @ 100 mls/hr IV ASDIRECTED [facility] Last Infusion: 11/07/20 09:47 Dose: 75 mls/hr Documented by: Ceftriaxone Sodium 1 gm/ (Sodium Chloride) 50 mls @ 100 mls/hr IV Q24H [facility] Last Admin: 11/09/20 16:34 Dose: Not Given Documented by: Potassium Chloride/Sodium Chloride (Normal Saline With 20 Meq Kcl) 1,000 mls @ 75 mls/hr IV ASDIRECTED [facility] Last Admin: 11/10/20 06:25 Dose: 75 mls/hr Documented by: Ceftriaxone Sodium 1 gm/ (Sodium Chloride) 50 mls @ 100 mls/hr IV ONETIME ONE Stop: 11/09/20 12:29 Last Admin: 11/09/20 11:49 Dose: 100 mls/hr Documented by: Cefazolin Sodium/Dextrose 1 gm (/ Premix) 50 mls @ 100 mls/hr IV ONCALL ONE Stop: 11/17/20 12:29 Last Admin: 11/17/20 13:16 Dose: 100 mls/hr Documented by: Lidocaine HCl (Lidocaine 1% 20 Ml Mdv) 2 ml .XX Q2H [facility] Stop: 11/06/20 21:01 Last Admin: 11/06/20 21:23 Dose: 2 ml Documented by: Lorazepam (Lorazepam 2 Mg/Ml Sdv) 1 mg IVPUSH ONETIME ONE Stop: 11/06/20 15:39 Last Admin: 11/06/20 15:55 Dose: 1 mg Documented by: Lorazepam (Lorazepam 1 Mg Tab) 0 mg PO ASDIRECTED [facility]; Protocol Lorazepam (Lorazepam 2 Mg/Ml Sdv) 0 mg IV ASDIRECTED [facility]; Protocol Lorazepam (Lorazepam 1 Mg Tab) 0 mg PO ASDIRECTED PRN; Protocol PRN Reason: Withdrawal Symptoms Last Admin: 11/11/20 12:53 Dose: 1 mg Documented by: Lorazepam (Lorazepam 2 Mg/Ml Sdv) 0 mg IV ASDIRECTED PRN; Protocol PRN Reason: Withdrawal Symptoms Last Admin: 11/09/20 23:59 Dose: 2 mg Documented by: Neostigmine Methylsulfate (Neostigmine Methylsulfate 1 Mg/Ml 5 Ml Syringe) Confirm Administered Dose 5 mg .ROUTE .STK-MED ONE Stop: 11/17/20 10:50 Ondansetron HCl (Ondansetron 4 Mg/2 Ml Sdv) Confirm Administered Dose 4 mg .ROUTE .STK-MED ONE Stop: 11/17/20 10:50 Potassium Chloride (Potassium Chloride 20 Meq Tab.Er) 40 meq PO ONETIME ONE Stop: 11/11/20 10:01 Last Admin: 11/11/20 10:33 Dose: 40 meq Documented by: Potassium Chloride (Potassium Chloride 20 Meq Tab.Er) 40 meq PO ONETIME ONE Stop: 11/12/20 10:01 Last Admin: 11/12/20 10:16 Dose: 40 meq Documented by: Potassium Chloride (Potassium Chloride 20 Meq Tab.Er) 40 meq PO ONETIME ONE Stop: 11/13/20 08:15 Last Admin: 11/13/20 08:30 Dose: 40 meq Documented by: Potassium Chloride (Potassium Chloride 20 Meq Tab.Er) 40 meq PO ONETIME ONE Stop: 11/14/20 08:31 Last Admin: 11/14/20 08:27 Dose: 40 meq Documented by: Potassium Chloride (Potassium Chloride 20 Meq Tab.Er) 40 meq PO ONETIME ONE Stop: 11/14/20 17:01 Last Admin: 11/14/20 16:21 Dose: 40 meq Documented by: Propofol (Propofol 200 Mg/20 Ml Sdv) Confirm Administered Dose 200 mg .ROUTE .STK-MED ONE Stop: 11/17/20 10:50 Rocuronium [place] (Rocuronium 50 Mg/5 Ml Vial) Confirm Administered Dose 50 mg .ROUTE .STK-MED ONE Stop: 11/17/20 10:50 Succinylcholine Chloride (Succinylcholine 200 Mg/10 Ml Mdv) Confirm Administered Dose 200 mg .ROUTE .STK-MED ONE Stop: 11/17/20 10:50 - Exam General: Alert, Moderate Distress Lungs: Clear to Auscultation, Normal Respiratory Effort Cardiovascular: Regular Rate, Regular Rhythm, No Murmurs GI/Abdominal Exam: Soft, Non-Tender, No Organomegaly, No Distention Extremities: Leg Pain - Patient Data Result Diagrams: 11/13/20 05:41 11/15/20 05:52 Sepsis Event Note - Evaluation Sepsis Screening Result: No Definite Risk - Focused Exam Vital Signs: Vital Signs Temp Pulse Resp BP BP Pulse Ox 11/17/20 17:42 89 12 119/73 93 L 11/17/20 17:01 97.5 F 90 12 125/78 95 11/17/20 16:28 99 12 132/83 96 11/17/20 16:15 98 16 136/82 95 11/17/20 16:00 95 16 141/84 H 96 11/17/20 15:44 96 16 139/80 93 L 11/17/20 15:33 97.2 F 98 18 137/90 96 11/17/20 15:20 99.3 F 99 16 142/91 H 95 11/17/20 15:15 96 16 142/84 H 94 L 11/17/20 15:10 95 16 145/91 H 95 11/17/20 15:05 99.3 F 96 16 143/84 H 94 L 11/17/20 15:00 100 16 137/90 98 11/17/20 14:56 99 14 136/96 H 98 11/17/20 14:50 99.1 F 105 H 14 134/96 H 98 11/17/20 10:56 97.2 F 101 H 16 111/75 95 11/17/20 08:00 97 F 100 16 115/75 95 - Problem List Review Problem List Initiated/Reviewed/Updated: Yes - My Orders Last 24 Hours: My Active Orders 11/18/20 05:00 BASIC METABOLIC PANEL,BMP [CHEM] Timed CBC WITH AUTO DIFF [HEME] Timed - Plan Plan:: ASSESSMENT AND PLAN ANKLE FRACTURE-status post surgical repair by Dr. Byrd -Postoperative care per Dr. Byrd Alcohol withdrawal delirium-no evidence of ongoing withdrawal, she continues to experience confusion related to encephalopathy, likely related to longstanding alcohol use -Saline lock IV -Melatonin at bedtime -Continue physical therapy Alcoholic hepatitis without ascites-bilirubin has now normalized Alcohol abuse-persistent heavy use despite previous liver problems. She seems to be coming out of her alcohol withdrawal though remains confused. -Supplement thiamine and folate Urinary tract infection-treatment complete. Hypokalemia-improved Maintenance issues - -DVT prophylaxis-mechanical -GI prophylaxis-PPI -Nutrition-regular diet -Bates catheter-not indicated Disposition -I anticipate discharge home tomorrow
[2020-11-17] MEDS: Melatonin 3 MG Tab PO SCH (20:01)
[2020-11-18] MEDS: Acetaminophen/HYDROcodone 325-5 MG Tab PO PRN ×2 (03:12→21:58)
[2020-11-18] MEDS: Pantoprazole 40 MG Tab.CR PO SCH ×2 (07:53→16:35)
[2020-11-18] MEDS: Thiamine 100 MG Tab PO SCH (09:21)
[2020-11-18] MEDS: Folic Acid 1 MG Tab PO SCH (09:21)
[2020-11-18] MEDS: Potassium Chloride 20 MEQ Tab.ER PO SCH (09:21)
--- NOTE | 2020-11-18 10:55 | PCM.PN ---
- General Info Date of Service: 11/18/20 Subjective Update: Ms. Cueto has been stable following surgery yesterday for her left ankle fracture. Vital signs have been good and she has remained afebrile. Still confused and unable to provide meaningful information concerning symptoms or review of systems - Patient Data Vitals - Most Recent: Last Vital Signs Temp 95 F L 11/18/20 07:56 Pulse 100 11/18/20 07:56 Resp 16 11/18/20 07:56 BP 119/74 11/18/20 07:56 Pulse Ox 96 11/18/20 07:56 Weight - Most Recent: 173 lb 4.533 oz I&O - Last 24 Hours: Intake & Output 11/17/20 11/18/20 11/18/20 22:59 06:59 14:59 Intake Total 900 900 Output Total 300 500 100 Balance 600 400 -100 Lab Results Last 24 Hours: Laboratory Results - last 24 hr 11/18/20 11/18/20 Range/Units 04:10 04:10 WBC 10.4 (4.5-11.0) K/uL RBC 2.95 L (3.30-5.50) M/uL Hgb 9.7 L (12.0-15.0) g/dL Hct 30.4 L (36.0-48.0) % MCV 103 H (80-98) fL MCH 33 H (27-31) pg MCHC 32 (32-36) % Plt Count 211 (150-400) K/uL Neut % (Auto) 72 H (36-66) % Lymph % (Auto) 13 L (24-44) % [place] % (Auto) 14 H (2-6) % Eos % (Auto) 0 L (2-4) % Baso % (Auto) 0 (0-1) % Sodium 139 L (140-148) mmol/L Potassium 3.7 (3.6-5.2) mmol/L Chloride 102 (100-108) mmol/L Carbon Dioxide 24 (21-32) mmol/L Anion Gap 16.7 H (5.0-14.0) mmol/L BUN 9 D (7-18) mg/dL Creatinine 0.8 (0.6-1.0) mg/dL Est Cr Clr Drug Dosing 81.83 mL/min Estimated GFR (MDRD) > 60 (>60) Glucose 109 H (74-106) mg/dL Calcium 8.9 (8.5-10.1) mg/dL Med Orders - Current: Current Medications Acetaminophen (Acetaminophen 325 Mg Tab) 650 mg PO Q4H PRN PRN Reason: Pain (Mild 1-3)/fever Last Admin: 11/16/20 16:20 Dose: 650 mg Documented by: Hydrocodone Bitart/Acetaminophen (Acetaminophen/Hydrocodone 325-5 Mg Tab) 1 tab PO Q3H PRN PRN Reason: Pain (moderate 4-6) Last Admin: 11/18/20 03:12 Dose: 1 tab Documented by: Folic Acid (Folic Acid 1 Mg Tab) 1 mg PO DAILY [facility] Last Admin: 11/18/20 09:21 Dose: 1 mg Documented by: Haloperidol (Haloperidol 5 Mg Tab) 5 mg PO Q4H PRN PRN Reason: Agitation Last Admin: 11/16/20 23:31 Dose: 5 mg Documented by: Haloperidol Lactate (Haloperidol Lactate 5 Mg/Ml Sdv) 2 mg IVPUSH Q4H PRN PRN Reason: severe agitation Last Admin: 11/09/20 17:47 Dose: 2 mg Documented by: Loperamide HCl (Loperamide 2 Mg Cap) 2 mg PO Q4H PRN PRN Reason: Diarrhea Lorazepam (Lorazepam 2 Mg/Ml Sdv) 0.5 mg IVPUSH Q4H PRN PRN Reason: Nausea/Vomiting Last Admin: 11/09/20 11:46 Dose: 0.5 mg Documented by: Magnesium Hydroxide (Magnesium Hydroxide 400 Mg/5 Ml Susp 30 Ml Cup) 30 ml PO Q12H PRN PRN Reason: Constipation Last Admin: 11/09/20 10:14 Dose: 30 ml Documented by: Melatonin (Melatonin 3 Mg Tab) 9 mg PO BEDTIME [facility] Last Admin: 11/17/20 20:01 Dose: 9 mg Documented by: Morphine Sulfate (Morphine 2 Mg/Ml Syringe) 1 mg IVPUSH Q2H PRN PRN Reason: Pain (severe 7-10) Last Admin: 11/17/20 11:50 Dose: 1 mg Documented by: Ondansetron HCl (Ondansetron 4 Mg/2 Ml Sdv) 4 mg IV Q6H PRN PRN Reason: Nausea/Vomiting Last Admin: 11/06/20 18:50 Dose: 4 mg Documented by: Ondansetron HCl (Ondansetron 4 Mg Tab.Dis) 4 mg PO Q6H PRN PRN Reason: Nausea able to take PO Pantoprazole Sodium (Pantoprazole 40 Mg Tab.Cr) 40 mg PO BIDAC [facility] Last Admin: 11/18/20 07:53 Dose: 40 mg Documented by: Potassium Chloride (Potassium Chloride 20 Meq Tab.Er) 20 meq PO DAILY [facility] Last Admin: 11/18/20 09:21 Dose: 20 meq Documented by: Senna/Docusate Sodium (Docusate Sodium/Sennosides 50-8.6 Mg Tab) 1 tab PO BID PRN PRN Reason: Constipation Thiamine HCl (Thiamine 100 Mg Tab) 100 mg PO DAILY [facility] Last Admin: 11/18/20 09:21 Dose: 100 mg Documented by: Discontinued Medications Bupivacaine HCl (Bupivacaine 0.5% 30 Ml Sdv) Confirm Administered Dose 30 ml .ROUTE .STK-MED ONE Stop: 11/17/20 10:35 Last Admin: 11/17/20 14:39 Dose: 20 ml Documented by: Dexamethasone (Dexamethasone 4 Mg/Ml Sdv) Confirm Administered Dose 4 mg .ROUTE .STK-MED ONE Stop: 11/17/20 10:50 Fentanyl (Fentanyl 250 Mcg/5 Ml Sdv) Confirm Administered Dose 250 mcg .ROUTE .STK-MED ONE Stop: 11/17/20 10:52 Fentanyl (Fentanyl 250 Mcg/5 Ml Sdv) Confirm Administered Dose 250 mcg .ROUTE .STK-MED ONE Stop: 11/17/20 13:50 Gabapentin (Gabapentin 400 Mg Cap) 400 mg PO TID [facility] Last Admin: 11/09/20 10:00 Dose: Not Given Documented by: Gabapentin (Gabapentin 100 Mg Cap) 200 mg PO TID [facility] Last Admin: 11/12/20 14:08 Dose: 200 mg Documented by: Glycopyrrolate (Glycopyrrolate 0.2 Mg/Ml 5 Ml Mdv) Confirm Administered Dose 1 mg .ROUTE .STK-MED ONE Stop: 11/17/20 10:50 Multivitamins/Minerals 10 ml/Thiamine HCl 100 mg/ Folic Acid 1 mg/ Magnesium Sulfate 3 gm/ Sodium Chloride 1,017.2 mls @ 500 mls/hr IV ASDIRECTED ONE Stop: 11/06/20 17:17 Last Admin: 11/06/20 15:53 Dose: 500 mls/hr Documented by: Potassium Chloride 20 meq/ (Premix) 100 mls @ 50 mls/hr IV ONETIME ONE Stop: 11/06/20 17:36 Last Admin: 11/06/20 15:54 Dose: 50 mls/hr Documented by: Potassium Chloride (Kcl In Water 20 Meq/100 Ml) 100 mls @ 50 mls/hr IV Q2H [facility] Stop: 11/06/20 22:59 Last Admin: 11/06/20 21:22 Dose: 50 mls/hr Documented by: Potassium Chloride/Sodium Chloride (Normal Saline With 20 Meq Kcl) 1,000 mls @ 100 mls/hr IV ASDIRECTED GREGORIO Last Infusion: 11/07/20 09:47 Dose: 75 mls/hr Documented by: Ceftriaxone Sodium 1 gm/ (Sodium Chloride) 50 mls @ 100 mls/hr IV Q24H [facility] Last Admin: 11/09/20 16:34 Dose: Not Given Documented by: Potassium Chloride/Sodium Chloride (Normal Saline With 20 Meq Kcl) 1,000 mls @ 75 mls/hr IV ASDIRECTED [facility] Last Admin: 11/10/20 06:25 Dose: 75 mls/hr Documented by: Ceftriaxone Sodium 1 gm/ (Sodium Chloride) 50 mls @ 100 mls/hr IV ONETIME ONE Stop: 11/09/20 12:29 Last Admin: 11/09/20 11:49 Dose: 100 mls/hr Documented by: Cefazolin Sodium/Dextrose 1 gm (/ Premix) 50 mls @ 100 mls/hr IV ONCALL ONE Stop: 11/17/20 12:29 Last Admin: 11/17/20 13:16 Dose: 100 mls/hr Documented by: Lidocaine HCl (Lidocaine 1% 20 Ml Mdv) 2 ml .XX Q2H GREG[facility]IO Stop: 11/06/20 21:01 Last Admin: 11/06/20 21:23 Dose: 2 ml Documented by: Lorazepam (Lorazepam 2 Mg/Ml Sdv) 1 mg IVPUSH ONETIME ONE Stop: 11/06/20 15:39 Last Admin: 11/06/20 15:55 Dose: 1 mg Documented by: Lorazepam (Lorazepam 1 Mg Tab) 0 mg PO ASDIRECTED GREGORIO; Protocol Lorazepam (Lorazepam 2 Mg/Ml Sdv) 0 mg IV ASDIRECTED GREGORIO; Protocol Lorazepam (Lorazepam 1 Mg Tab) 0 mg PO ASDIRECTED PRN; Protocol PRN Reason: Withdrawal Symptoms Last Admin: 11/11/20 12:53 Dose: 1 mg Documented by: Lorazepam (Lorazepam 2 Mg/Ml Sdv) 0 mg IV ASDIRECTED PRN; Protocol PRN Reason: Withdrawal Symptoms Last Admin: 11/09/20 23:59 Dose: 2 mg Documented by: Neostigmine Methylsulfate (Neostigmine Methylsulfate 1 Mg/Ml 5 Ml Syringe) Confirm Administered Dose 5 mg .ROUTE .STK-MED ONE Stop: 11/17/20 10:50 Ondansetron HCl (Ondansetron 4 Mg/2 Ml Sdv) Confirm Administered Dose 4 mg .ROUTE .STK-MED ONE Stop: 11/17/20 10:50 Potassium Chloride (Potassium Chloride 20 Meq Tab.Er) 40 meq PO ONETIME ONE Stop: 11/11/20 10:01 Last Admin: 11/11/20 10:33 Dose: 40 meq Documented by: Potassium Chloride (Potassium Chloride 20 Meq Tab.Er) 40 meq PO ONETIME ONE Stop: 11/12/20 10:01 Last Admin: 11/12/20 10:16 Dose: 40 meq Documented by: Potassium Chloride (Potassium Chloride 20 Meq Tab.Er) 40 meq PO ONETIME ONE Stop: 11/13/20 08:15 Last Admin: 11/13/20 08:30 Dose: 40 meq Documented by: Potassium Chloride (Potassium Chloride 20 Meq Tab.Er) 40 meq PO ONETIME ONE Stop: 11/14/20 08:31 Last Admin: 11/14/20 08:27 Dose: 40 meq Documented by: Potassium Chloride (Potassium Chloride 20 Meq Tab.Er) 40 meq PO ONETIME ONE Stop: 11/14/20 17:01 Last Admin: 11/14/20 16:21 Dose: 40 meq Documented by: Propofol (Propofol 200 Mg/20 Ml Sdv) Confirm Administered Dose 200 mg .ROUTE .STK-MED ONE Stop: 11/17/20 10:50 Rocuronium [place] (Rocuronium 50 Mg/5 Ml Vial) Confirm Administered Dose 50 mg .ROUTE .STK-MED ONE Stop: 11/17/20 10:50 Succinylcholine Chloride (Succinylcholine 200 Mg/10 Ml Mdv) Confirm Administered Dose 200 mg .ROUTE .STK-MED ONE Stop: 11/17/20 10:50 - Exam General: Alert, Cooperative, Mild Distress. No: Oriented Lungs: Clear to Auscultation, Normal Respiratory Effort Cardiovascular: Regular Rate, Regular Rhythm, No Murmurs GI/Abdominal Exam: Soft, Non-Tender, No Organomegaly, No Distention Extremities: Non-Tender, No Pedal Edema - Patient Data Lab Results Last 24 hrs: Laboratory Results - last 24 hr 11/18/20 11/18/20 Range/Units 04:10 04:10 WBC 10.4 (4.5-11.0) K/uL RBC 2.95 L (3.30-5.50) M/uL Hgb 9.7 L (12.0-15.0) g/dL Hct 30.4 L (36.0-48.0) % MCV 103 H (80-98) fL MCH 33 H (27-31) pg MCHC 32 (32-36) % Plt Count 211 (150-400) K/uL Neut % (Auto) 72 H (36-66) % Lymph % (Auto) 13 L (24-44) % [place] % (Auto) 14 H (2-6) % Eos % (Auto) 0 L (2-4) % Baso % (Auto) 0 (0-1) % Sodium 139 L (140-148) mmol/L Potassium 3.7 (3.6-5.2) mmol/L Chloride 102 (100-108) mmol/L Carbon Dioxide 24 (21-32) mmol/L Anion Gap 16.7 H (5.0-14.0) mmol/L BUN 9 D (7-18) mg/dL Creatinine 0.8 (0.6-1.0) mg/dL Est Cr Clr Drug Dosing 81.83 mL/min Estimated GFR (MDRD) > 60 (>60) Glucose 109 H (74-106) mg/dL Calcium 8.9 (8.5-10.1) mg/dL Result Diagrams: 11/18/20 04:10 11/18/20 04:10 Sepsis Event Note - Evaluation Sepsis Screening Result: No Definite Risk - Focused Exam Vital Signs: Vital Signs Temp Pulse Resp BP Pulse Ox 11/18/20 07:56 95 F L 100 16 119/74 96 11/18/20 07:11 16 101/70 98 11/18/20 06:00 101 H 14 101/70 96 11/18/20 04:00 98.1 F 99 16 114/70 90 L 11/18/20 02:00 112 H 16 111/59 L 92 L 11/18/20 00:00 98 F 114 H 16 122/76 92 L - Problem List Review Problem List Initiated/Reviewed/Updated: Yes - Plan Plan:: ASSESSMENT AND PLAN ANKLE FRACTURE-status post surgical repair by Dr. Byrd -Postoperative care per Dr. Bryd Alcohol withdrawal delirium-no evidence of ongoing withdrawal, she continues to experience confusion related to encephalopathy, likely related to longstanding alcohol use -Saline lock IV -Melatonin at bedtime -Continue physical therapy Alcoholic hepatitis without ascites-bilirubin has now normalized Alcohol abuse-persistent heavy use despite previous liver problems. She seems to be coming out of her alcohol withdrawal though remains confused. -Supplement thiamine and folate Urinary tract infection-treatment complete. Hypokalemia-improved Maintenance issues - -DVT prophylaxis-mechanical -GI prophylaxis-PPI -Nutrition-regular diet -Bates catheter-not indicated
[2020-11-18] MEDS: Melatonin 3 MG Tab PO SCH (21:57)
[2020-11-19] MEDS: Potassium Chloride 20 MEQ Tab.ER PO SCH (08:08)
[2020-11-19] MEDS: Folic Acid 1 MG Tab PO SCH (08:08)
[2020-11-19] MEDS: Thiamine 100 MG Tab PO SCH (08:08)
[2020-11-19] MEDS: Pantoprazole 40 MG Tab.CR PO SCH (08:08)
[2020-11-19 09:10] VITALS: BP 119/76; PULSE 102
--- NOTE | 2020-11-19 11:34 | PCM.DCSUM1 ---
Discharge Summary - Hospital Course Brief History: Ms. Cueto is a 45-year-old woman who was admitted through the emergency department with weakness and lethargy secondary to longstanding alcohol use, alcoholic hepatitis, dehydration, and acute kidney injury. - Discharge Data Discharge Date: 11/19/20 Discharge Disposition: Home, Self-Care 01 Condition: Fair - Referral to Home Health Primary Care Physician: Jack Brock NP - Discharge Diagnosis/Problem(s) (1) Alcoholic encephalopathy SNOMED Code(s): 509821389 ICD Code: G31.2 - DEGENERATION OF NERVOUS SYSTEM DUE TO ALCOHOL; F10.20 - ALCOHOL DEPENDENCE, UNCOMPLICATED Status: Acute Current Visit: Yes (2) Alcohol withdrawal delirium, acute, hyperactive SNOMED Code(s): 7189796, 55647262, 96940807438672130 ICD Code: F10.231 - ALCOHOL DEPENDENCE WITH WITHDRAWAL DELIRIUM Status: Acute Current Visit: Yes (3) Bimalleolar ankle fracture SNOMED Code(s): 127933220 ICD Code: S82.843A - DISPLACED BIMALLEOLAR FRACTURE OF UNSP LOWER LEG, INIT Status: Acute Current Visit: Yes Qualifiers: Encounter type: initial encounter Fracture type: closed Laterality: left Qualified Code(s): S82.842A - Displaced bimalleolar fracture of left lower leg, initial encounter for closed fracture (4) Alcohol abuse SNOMED Code(s): 09149826 ICD Code: F10.10 - ALCOHOL ABUSE, UNCOMPLICATED Status: Acute Current Visit: Yes (5) Alcoholic peripheral neuropathy Status: Acute Current Visit: Yes (6) Alcoholic hepatitis with ascites SNOMED Code(s): 2466993858482709 ICD Code: K70.11 - ALCOHOLIC HEPATITIS WITH ASCITES Status: Acute Current Visit: Yes (7) Acute kidney injury SNOMED Code(s): 15082338, 21419674 ICD Code: N17.9 - ACUTE KIDNEY FAILURE, UNSPECIFIED Status: Acute Current Visit: Yes - Patient Summary/Data Consults: Consultations 11/15/20 09:41 Consult to Physical Therapy [PT Evaluation and Treatment] [CONS] Routine Please Evaluate and Treat. PT Reason for Consult: Weakness This query below is only for informational purposes and is not editable. Admission Diagnosis/Problem: Alcoholic hepatitis with ascites 11/16/20 15:45 Consult to Physician [CONS] Routine Consulting Provider: Prochaska,Khadar Courtesy Call Completed to Consulting Physician: Yes Reason for Consult: Left ankle fracture Hospital Course: Ms. Cueto presented to the emergency room after her found her unresponsive. He reports that she was in her usual state of health at bedtime. I am not able to get any history from her because of confusion so history is gathered from her as well as emergency room personnel. Her does report that they have been ill lately with a flulike illness which includes upper respiratory symptoms, nausea and diarrhea. He reports that he was tested for Covid and this was negative. She has not been eating well for the last several days. She has not been drinking well either. He is not aware of any fevers. He does think that her abdomen has been more distended than usual. He does report that she has been drinking regular but this has been her usual amount of vodka. He was worried that she may have had a seizure because her eyes seem to be pointed in different directions and she was very lethargic. He did not specifically see her shaking like she had a seizure. Work-up in the emergency room has revealed evidence for significant dehydration, acute kidney injury, hypokalemia and mild alcoholic hepatitis. The patient is more alert but still quite confused. On admission she was given IV fluids for hydration. She did develop significant alcohol withdrawal delirium and was managed with the alcohol withdrawal protocol. At baseline she has some confusion and is felt to have alcoholic encephalopathy. Renal function improved following hydration and alcoholic hepatitis resolved. After her delirium resolved she did become more alert and interactive but remained very confused and unsteady on her feet as she also has known alcoholic peripheral neuropathy. Plan had been for discharged home, but on the day prior to discharge she experienced an unwitnessed fall and was noted to have deformity of her left ankle as well as complained of left ankle pain. X-ray of the ankle did document a trimalleolar fracture. She was seen and evaluated by Dr. Byrd for orthopedic consult and on November 17 underwent surgical repair of her ankle fracture. She did well following surgery although remained very unsteady with standing and was unable to ambulate. Her felt strongly that he wanted to take her home on the day of discharge and felt that he would be able to provide her adequate care. We reviewed her current status with transfers and ambulation and encouraged him to consider fpc placement which she refused. She will be discharged home under the care of her . Home care services will be ordered including home physical therapy and Occupational Therapy. Activity will be partial weightbearing on the left leg and she will be on a regular diet. Follow-up appointment will be scheduled with Dr. Byrd in 1 to 2 weeks. Dressing changes will be performed as recommended by Dr. Byrd. - Patient Instructions Diet: Usual Diet as Tolerated Activity: Partial Weight Bearing (Left ankle) Other/Special Instructions: Please schedule follow-up appointment with Dr. Natasha doll the week of November 27. - Discharge Plan *PRESCRIPTION DRUG MONITORING PROGRAM REVIEWED*: Not Applicable *COPY OF PRESCRIPTION DRUG MONITORING REPORT IN PATIENT MAGDALENA: Not Applicable Prescriptions/Med Rec: Folic Acid 1 mg PO DAILY #30 tablet Hydrocodone/Acetaminophen [Hydrocodon-Acetaminophen 5-325] 1 each PO Q4H #20 tablet Thiamine [Vitamin B-1] 100 mg PO DAILY #30 tablet Home Medications: Home Meds Omeprazole 20 mg PO DAILY 11/06/20 [History] Potassium Chloride [Klor-Con M20] 40 meq PO DAILY 11/06/20 [History] Folic Acid 1 mg PO DAILY #30 tablet 11/19/20 [Rx] Hydrocodone/Acetaminophen [Hydrocodon-Acetaminophen 5-325] 1 each PO Q4H #20 tablet 11/19/20 [Rx] Thiamine [Vitamin B-1] 100 mg PO DAILY #30 tablet 11/19/20 [Rx] Referrals: PCP,None [Ordering Only Provider] - - Discharge Summary/Plan Comment DC Time >30 min.: No - Patient Data Vitals - Most Recent: Last Vital Signs Temp 98.1 F 11/19/20 09:00 Pulse 102 H 11/19/20 09:00 Resp 16 11/19/20 09:00 BP 119/76 11/19/20 09:00 Pulse Ox 97 11/19/20 09:00 Weight - Most Recent: 173 lb 4.533 oz I&O - Last 24 hours: Intake & Output 11/18/20 11/19/20 11/19/20 22:59 06:59 14:59 Intake Total 60 900 Output Total 500 Balance 60 400 Med Orders - Current: Current Medications Acetaminophen (Acetaminophen 325 Mg Tab) 650 mg PO Q4H PRN PRN Reason: Pain (Mild 1-3)/fever Last Admin: 11/16/20 16:20 Dose: 650 mg Documented by: Hydrocodone Bitart/Acetaminophen (Acetaminophen/Hydrocodone 325-5 Mg Tab) 1 tab PO Q3H PRN PRN Reason: Pain (moderate 4-6) Last Admin: 11/18/20 21:58 Dose: 1 tab Documented by: Folic Acid (Folic Acid 1 Mg Tab) 1 mg PO DAILY [facility] Last Admin: 11/19/20 08:08 Dose: 1 mg Documented by: Haloperidol (Haloperidol 5 Mg Tab) 5 mg PO Q4H PRN PRN Reason: Agitation Last Admin: 11/16/20 23:31 Dose: 5 mg Documented by: Haloperidol Lactate (Haloperidol Lactate 5 Mg/Ml Sdv) 2 mg IVPUSH Q4H PRN PRN Reason: severe agitation Last Admin: 11/09/20 17:47 Dose: 2 mg Documented by: Loperamide HCl (Loperamide 2 Mg Cap) 2 mg PO Q4H PRN PRN Reason: Diarrhea Lorazepam (Lorazepam 2 Mg/Ml Sdv) 0.5 mg IVPUSH Q4H PRN PRN Reason: Nausea/Vomiting Last Admin: 11/09/20 11:46 Dose: 0.5 mg Documented by: Magnesium Hydroxide (Magnesium Hydroxide 400 Mg/5 Ml Susp 30 Ml Cup) 30 ml PO Q12H PRN PRN Reason: Constipation Last Admin: 11/09/20 10:14 Dose: 30 ml Documented by: Melatonin (Melatonin 3 Mg Tab) 9 mg PO BEDTIME [facility] Last Admin: 11/18/20 21:57 Dose: 9 mg Documented by: Morphine Sulfate (Morphine 2 Mg/Ml Syringe) 1 mg IVPUSH Q2H PRN PRN Reason: Pain (severe 7-10) Last Admin: 11/17/20 11:50 Dose: 1 mg Documented by: Ondansetron HCl (Ondansetron 4 Mg/2 Ml Sdv) 4 mg IV Q6H PRN PRN Reason: Nausea/Vomiting Last Admin: 11/06/20 18:50 Dose: 4 mg Documented by: Ondansetron HCl (Ondansetron 4 Mg Tab.Dis) 4 mg PO Q6H PRN PRN Reason: Nausea able to take PO Pantoprazole Sodium (Pantoprazole 40 Mg Tab.Cr) 40 mg PO BIDAC [facility] Last Admin: 11/19/20 08:08 Dose: 40 mg Documented by: Potassium Chloride (Potassium Chloride 20 Meq Tab.Er) 20 meq PO DAILY [facility] Last Admin: 11/19/20 08:08 Dose: 20 meq Documented by: Senna/Docusate Sodium (Docusate Sodium/Sennosides 50-8.6 Mg Tab) 1 tab PO BID PRN PRN Reason: Constipation Thiamine HCl (Thiamine 100 Mg Tab) 100 mg PO DAILY [facility] Last Admin: 11/19/20 08:08 Dose: 100 mg Documented by: Discontinued Medications Bupivacaine HCl (Bupivacaine 0.5% 30 Ml Sdv) Confirm Administered Dose 30 ml .ROUTE .STK-MED ONE Stop: 11/17/20 10:35 Last Admin: 11/17/20 14:39 Dose: 20 ml Documented by: Dexamethasone (Dexamethasone 4 Mg/Ml Sdv) Confirm Administered Dose 4 mg .ROUTE .STK-MED ONE Stop: 11/17/20 10:50 Fentanyl (Fentanyl 250 Mcg/5 Ml Sdv) Confirm Administered Dose 250 mcg .ROUTE .STK-MED ONE Stop: 11/17/20 10:52 Fentanyl (Fentanyl 250 Mcg/5 Ml Sdv) Confirm Administered Dose 250 mcg .ROUTE .STK-MED ONE Stop: 11/17/20 13:50 Gabapentin (Gabapentin 400 Mg Cap) 400 mg PO TID [facility] Last Admin: 11/09/20 10:00 Dose: Not Given Documented by: Gabapentin (Gabapentin 100 Mg Cap) 200 mg PO TID [facility] Last Admin: 11/12/20 14:08 Dose: 200 mg Documented by: Glycopyrrolate (Glycopyrrolate 0.2 Mg/Ml 5 Ml Mdv) Confirm Administered Dose 1 mg .ROUTE .STK-MED ONE Stop: 11/17/20 10:50 Multivitamins/Minerals 10 ml/Thiamine HCl 100 mg/ Folic Acid 1 mg/ Magnesium Sulfate 3 gm/ Sodium Chloride 1,017.2 mls @ 500 mls/hr IV ASDIRECTED ONE Stop: 11/06/20 17:17 Last Admin: 11/06/20 15:53 Dose: 500 mls/hr Documented by: Potassium Chloride 20 meq/ (Premix) 100 mls @ 50 mls/hr IV ONETIME ONE Stop: 11/06/20 17:36 Last Admin: 11/06/20 15:54 Dose: 50 mls/hr Documented by: Potassium Chloride (Kcl In Water 20 Meq/100 Ml) 100 mls @ 50 mls/hr IV Q2H GR[facility]IO Stop: 11/06/20 22:59 Last Admin: 11/06/20 21:22 Dose: 50 mls/hr Documented by: Potassium Chloride/Sodium Chloride (Normal Saline With 20 Meq Kcl) 1,000 mls @ 100 mls/hr IV ASDIRECTED GREGORIO Last Infusion: 11/07/20 09:47 Dose: 75 mls/hr Documented by: Ceftriaxone Sodium 1 gm/ (Sodium Chloride) 50 mls @ 100 mls/hr IV Q24H [facility] Last Admin: 11/09/20 16:34 Dose: Not Given Documented by: Potassium Chloride/Sodium Chloride (Normal Saline With 20 Meq Kcl) 1,000 mls @ 75 mls/hr IV ASDIRECTED [facility]IO Last Admin: 11/10/20 06:25 Dose: 75 mls/hr Documented by: Ceftriaxone Sodium 1 gm/ (Sodium Chloride) 50 mls @ 100 mls/hr IV ONETIME ONE Stop: 11/09/20 12:29 Last Admin: 11/09/20 11:49 Dose: 100 mls/hr Documented by: Cefazolin Sodium/Dextrose 1 gm (/ Premix) 50 mls @ 100 mls/hr IV ONCALL ONE Stop: 11/17/20 12:29 Last Admin: 11/17/20 13:16 Dose: 100 mls/hr Documented by: Lidocaine HCl (Lidocaine 1% 20 Ml Mdv) 2 ml .XX Q2H GREG[facility]IO Stop: 11/06/20 21:01 Last Admin: 11/06/20 21:23 Dose: 2 ml Documented by: Lorazepam (Lorazepam 2 Mg/Ml Sdv) 1 mg IVPUSH ONETIME ONE Stop: 11/06/20 15:39 Last Admin: 11/06/20 15:55 Dose: 1 mg Documented by: Lorazepam (Lorazepam 1 Mg Tab) 0 mg PO ASDIRECTED GREGORIO; Protocol Lorazepam (Lorazepam 2 Mg/Ml Sdv) 0 mg IV ASDIRECTED GREGORIO; Protocol Lorazepam (Lorazepam 1 Mg Tab) 0 mg PO ASDIRECTED PRN; Protocol PRN Reason: Withdrawal Symptoms Last Admin: 11/11/20 12:53 Dose: 1 mg Documented by: Lorazepam (Lorazepam 2 Mg/Ml Sdv) 0 mg IV ASDIRECTED PRN; Protocol PRN Reason: Withdrawal Symptoms Last Admin: 11/09/20 23:59 Dose: 2 mg Documented by: Neostigmine Methylsulfate (Neostigmine Methylsulfate 1 Mg/Ml 5 Ml Syringe) Confirm Administered Dose 5 mg .ROUTE .STK-MED ONE Stop: 11/17/20 10:50 Ondansetron HCl (Ondansetron 4 Mg/2 Ml Sdv) Confirm Administered Dose 4 mg .ROUTE .STK-MED ONE Stop: 11/17/20 10:50 Potassium Chloride (Potassium Chloride 20 Meq Tab.Er) 40 meq PO ONETIME ONE Stop: 11/11/20 10:01 Last Admin: 11/11/20 10:33 Dose: 40 meq Documented by: Potassium Chloride (Potassium Chloride 20 Meq Tab.Er) 40 meq PO ONETIME ONE Stop: 11/12/20 10:01 Last Admin: 11/12/20 10:16 Dose: 40 meq Documented by: Potassium Chloride (Potassium Chloride 20 Meq Tab.Er) 40 meq PO ONETIME ONE Stop: 11/13/20 08:15 Last Admin: 11/13/20 08:30 Dose: 40 meq Documented by: Potassium Chloride (Potassium Chloride 20 Meq Tab.Er) 40 meq PO ONETIME ONE Stop: 11/14/20 08:31 Last Admin: 11/14/20 08:27 Dose: 40 meq Documented by: Potassium Chloride (Potassium Chloride 20 Meq Tab.Er) 40 meq PO ONETIME ONE Stop: 11/14/20 17:01 Last Admin: 11/14/20 16:21 Dose: 40 meq Documented by: Propofol (Propofol 200 Mg/20 Ml Sdv) Confirm Administered Dose 200 mg .ROUTE .STK-MED ONE Stop: 11/17/20 10:50 Rocuronium [place] (Rocuronium 50 Mg/5 Ml Vial) Confirm Administered Dose 50 mg .ROUTE .STK-MED ONE Stop: 11/17/20 10:50 Succinylcholine Chloride (Succinylcholine 200 Mg/10 Ml Mdv) Confirm Administered Dose 200 mg .ROUTE .STK-MED ONE Stop: 11/17/20 10:50 - Exam General: Reports: Alert, Cooperative, Mild Distress. Denies: Oriented Lungs: Reports: Clear to Auscultation, Normal Respiratory Effort Cardiovascular: Reports: Regular Rate, Regular Rhythm, No Murmurs GI/Abdominal Exam: Soft, Non-Tender, No Organomegaly, No Distention Extremities: Other (Surgical dressing in place left ankle)
--- NOTE | 2020-12-13 22:19 | OR ---
DATE OF PROCEDURE: 11/21/2020 SURGEON: Khadar Byrd MD POSTOPERATIVE DIAGNOSIS: Displaced bimalleolar fracture, left ankle. POSTOPERATIVE DIAGNOSIS: Displaced bimalleolar fracture, left ankle. PROCEDURE: Open reduction and internal fixation, left ankle. COAT AGENT: NATASHA Tijerina. ANESTHESIA: General. INDICATIONS: Crystal is a 45-year-old female admitted to the hospital for alcohol-related issues, who sustained an unwitnessed fall on the floor, resulting in a displaced bimalleolar ankle fracture. She was taken the operating room for fixation. Risks, benefits, potential complications of the procedure were discussed with the patient and her family. DESCRIPTION OF PROCEDURE: After adequate anesthesia was obtained, the patient was placed supine with the tourniquet above the left upper leg. Leg was prepped and draped in a sterile fashion. A longitudinal incision was made over the lateral aspect of the ankle, carried down to the subcutaneous tissues, and the fractures exposed. The fracture was reduced and held in a reduced position with a bone-holding clamp. A Synthes contoured lateral fibular plate was selected. This was secured to the fibula with locking screws distally and 3.5 cortical screws proximally in compression. Position was checked using C- arm fluoroscopy. An incision was then made over the medial aspect of the ankle, and the medial malleolar fragment was identified. Periosteum was cleared from the fracture site along with the fracture hematoma. The fracture fragment was reduced and held with a bone- holding clamp and drilled, and a 4.0 partially-threaded cancellous screw was then placed compressing the fracture. Final position was confirmed using fluoroscopy; AP, mortise, and lateral views. Both incisions were irrigated. Deep layers were closed with 0 Vicryl in an interrupted fashion. Skin was closed with 2-0 Vicryl and a running 3-0 Monocryl. Steri- Strips were applied. A well-padded AO plaster splint was then applied with the foot in neutral position. The patient tolerated the procedure very well. She was taken from the operating room in stable condition. Khadar Byrd MD /[id number]
== END 2020-11-19 12:30 | disposition home or self-care (01) | DRG 982 ==
LOC: JP.ED 14:38 → JP.ICU 18:17 → JP.MS 11-16 10:14 → JP.ICU 11-17 16:43
PROVIDERS: ADMIT Internal Medicine; ATTEND Hospitalist
PROC: 0QSK04Z Reposition Left Fibula with Internal Fixation Device, Open Approach (ICD-10-PCS; principal; 2020-11-17)
DX: G31.2 Degeneration of nervous system due to alcohol (principal); N17.9 Acute kidney failure, unspecified; F10.231 Alcohol dependence with withdrawal delirium; R44.3 Hallucinations, unspecified; N39.0 Urinary tract infection, site not specified; S82.842A Displaced bimalleolar fracture of left lower leg, initial encounter for closed fracture; K70.11 Alcoholic hepatitis with ascites; E86.0 Dehydration; K59.00 Constipation, unspecified; E87.6 Hypokalemia; G62.1 Alcoholic polyneuropathy; Z79.899 Other long term (current) drug therapy; W19.XXXA Unspecified fall, initial encounter; R45.1 Restlessness and agitation; B96.20 Unspecified Escherichia coli [E. coli] as the cause of diseases classified elsewhere
CPT/HCPCS: 0241U; 36415; 70450; 73610-26-LT; 73610-LT; 76000; 76700; 76700-26; 80048; 80053; 80307; 81001; 82140; 83735; 84443; 85025; 85027; 85610; 87046; 87086; 87088; 87186; 87493; 87899; 89055; 96365; 96366; 96368; 96375; 97110-GP; 97161-GP; 97164-GP; 97530-GP; 99284; 99285-25; A9270-GY; C1713; J0330; J0690; J0696; J1100; J1630; J2060; J2270; J2405; J2704; J2710; J3010; J3411; J3475; J3480; J3490; J7030

== ENCOUNTER 2020-12-05 15:36 | Emergency (ER) | payer MEDICAID ==
--- NOTE | 2020-12-05 18:05 | EDM.PDOC ---
ED HPI GENERAL MEDICAL PROBLEM - General Chief Complaint: Lower Extremity Injury/Pain Stated Complaint: MEDICAL VIA [facility] Time Seen by Provider: 12/05/20 17:54 Source of Information: Reports: Patient, EMS History Limitations: Reports: Altered Mental Status - History of Present Illness INITIAL COMMENTS - FREE TEXT/NARRATIVE: Crystal is a 45-year-old female brought in by EMS for evaluation of increased confusion and being unable to care for herself. The patient resides with her 90-year-old mother who called EMS stating that the patient was not able to take care of her activities of daily living and although they have home health care, her 90-year-old mother cannot care for her any further. The patient is confused which according to the mother is her baseline and reportedly was found sitting in her own stool and drenched in urine. Patient recently underwent orthopedic surgery on her left ankle and comes in for the pretext that she is having toe pain on the left foot and wants to get that checked out. Talking with nursing, the patient was hospitalized here from November 06-1630 for alcohol related admission and apparently while she was on second floor she fell causing the ankle fracture. When she was discharged on the , it was under the insistence that her was going to take her home and care for her there. Home health was set up and has been providing services, however, the left to go work in [place] for a month leaving the care of the patient to his 90-year-old mother. Home health arrived today to care for the patient and found her sitting in the feces in urine, they cleaned her up and then they called EMS because the 90-year-old mother is unable to care for her. Left Foot Pain Score (Numeric/FACES): 2 - Related Data Allergies Allergy/AdvReac Type Severity Reaction Status Date / Time No Known Allergies Allergy Verified 11/06/20 14:51 Home Meds: Home Meds Potassium Chloride [Klor-Con M20] 20 meq PO BID 11/06/20 [History] Folic Acid 1 mg PO DAILY #30 tablet 11/19/20 [Rx] Thiamine [Vitamin B-1] 100 mg PO DAILY #30 tablet 11/19/20 [Rx] Ibuprofen 200 mg PO Q6H PRN 12/05/20 [History] Multivit-Min/Folic Acid/Biotin [Women Multivit W-Biotin Gummy] 1 each PO DAILY 12/05/20 [History] Past Medical History - Past Health History Medical/Surgical History: Denies Medical/Surgical History HEENT History: Reports: Impaired Vision Gastrointestinal History: Reports: GERD Musculoskeletal History: Reports: Fracture Other Musculoskeletal History: L ankle- s/p ORIF 11/17/20 Psychiatric History: Reports: Addiction, Dementia - Infectious Disease History Infectious Disease History: Reports: Chicken Pox - Past Surgical History Female Surgical History: Reports: Other (See Below) Other Female Surgeries/Procedures: past kidney failure with dialysis Social & Family History - Family History Family Medical History: Unobtainable - Tobacco Use Tobacco Use Status *Q: Never Tobacco User - Caffeine Use Caffeine Use: Reports: Soda - Recreational Drug Use Recreational Drug Use: No Review of Systems - Review of Systems Review Of Systems: Unable To Obtain Reason Not Obtained: Patient has confusion and confabulates answers Constitutional: Reports: No Symptoms Eyes: Reports: No Symptoms Mouth/Throat: Reports: No Symptoms Respiratory: Reports: No Symptoms Cardiovascular: Reports: No Symptoms GI/Abdominal: Reports: No Symptoms Musculoskeletal: Reports: Foot Pain (Left foot. Patient states that she ran into something with her foot [place] Neurological: Reports: Confusion Psychiatric: Reports: Confusion ED EXAM, GENERAL - Physical Exam Exam: See Below Exam Limited By: Altered Mental Status General Appearance: Alert, No Apparent Distress Eye Exam: Bilateral Eye: EOMI, PERRL Throat/Mouth: Normal Inspection, Normal Oropharynx, Normal Voice, No Airway Compromise Head: Atraumatic, Normocephalic Neck: Normal Inspection, Supple, Non-Tender, Full Range of Motion Respiratory/Chest: No Respiratory Distress, Lungs Clear, Normal Breath Sounds Cardiovascular: Normal Peripheral Pulses, Regular Rate, Rhythm, No Murmur, Tachycardia Peripheral Pulses: 2+: Radial (L), Radial (R) GI/Abdominal: Normal Bowel Sounds, Soft, Non-Tender Back Exam: Normal Inspection, Full Range of Motion Extremities: Normal Inspection, Normal Range of Motion, Other (Right ankle is casted. Poor hygiene.) Neurological: Alert, No Motor/Sensory Deficits, Confused, Disoriented, Other (Patient confabulates answers) Psychiatric: Normal Affect Skin Exam: Warm, Dry, Intact, Normal Color, Other (Poor self hygiene) Lymphatic: No Adenopathy Course - Vital Signs Last Recorded V/S: Last Vital Signs Temp 36.7 C 12/05/20 15:39 Pulse 114 H 12/05/20 18:47 Resp 18 12/05/20 15:39 BP 139/84 12/05/20 18:47 Pulse Ox 97 12/05/20 18:47 - Orders/Labs/Meds Orders: Active Orders 24 hr Category Date Time Status Isolation [COMM] Stat Oth 12/05/20 19:05 Ordered Labs: Laboratory Tests 12/05/20 12/05/20 12/05/20 Range/Units 18:03 18:03 18:03 WBC 8.7 (4.5-11.0) K/uL RBC 3.70 (3.30-5.50) M/uL Hgb 11.9 L D (12.0-15.0) g/dL Hct 37.2 (36.0-48.0) % MCV 101 H (80-98) fL MCH 32 H (27-31) pg MCHC 32 (32-36) % Plt Count 177 (150-400) K/uL Neut % (Auto) 71.0 H (36-66) % Lymph % (Auto) 17.1 L (24-44) % Parker % (Auto) 9.9 H (2-6) % Eos % (Auto) 1.4 L (2-4) % Baso % (Auto) 0.6 (0-1) % Sodium 140 (140-148) mmol/L Potassium 3.7 (3.6-5.2) mmol/L Chloride 103 (100-108) mmol/L Carbon Dioxide 24 (21-32) mmol/L Anion Gap 13.2 (5.0-14.0) mmol/L BUN 12 (7-18) mg/dL Creatinine 0.8 (0.6-1.0) mg/dL Est Cr Clr Drug Dosing 78.23 mL/min Estimated GFR (MDRD) > 60 (>60) Glucose 102 (74-106) mg/dL Lactic Acid (0.4-2.0) mmol/L Calcium 9.5 (8.5-10.1) mg/dL Total Bilirubin 0.9 (0.2-1.0) mg/dL AST 74 H (15-37) U/L ALT 35 (12-78) U/L Alkaline Phosphatase 204 H (46-116) U/L Ammonia < 11 L (11-32) umol/L Total Protein 8.4 H (6.4-8.2) g/dL Albumin 3.0 L (3.4-5.0) g/dL Globulin 5.4 H (2.3-3.5) g/dL Albumin/Globulin Ratio 0.6 L (1.2-2.2) Urine Color (YELLOW) Urine Appearance (CLEAR) Urine pH (5.0-8.0) Ur Specific Imperial (1.008-1.030) Urine Protein (NEGATIVE) mg/dL Urine Glucose (UA) (NEGATIVE) mg/dL Urine Ketones (NEGATIVE) mg/dL Urine Occult Blood (NEGATIVE) Urine Nitrite (NEGATIVE) Urine Bilirubin (NEGATIVE) Urine Urobilinogen (0.2-1.0) EU/dL Ur Leukocyte Esterase (NEGATIVE) Urine RBC (0-5) Urine WBC (0-5) Ur Epithelial Cells Amorphous Sediment Urine Bacteria Urine Mucus Urine Other Urine Opiates Screen (NEGATIVE) Ur Oxycodone Screen (NEGATIVE) Urine Methadone Screen (NEGATIVE) Ur Propoxyphene Screen (NEGATIVE) Ur Barbiturates Screen (NEGATIVE) Ur Tricyclics Screen (NEGATIVE) Ur Phencyclidine Scrn (NEGATIVE) Ur Amphetamine Screen (NEGATIVE) U Methamphetamines Scrn (NEGATIVE) Urine MDMA Screen (NEGATIVE) U Benzodiazepines Scrn (NEGATIVE) U Cocaine Metab Screen (NEGATIVE) U Marijuana (THC) Screen (NEGATIVE) Ethyl Alcohol mg/dL SARS CoV-2 RNA Rapid GILLIAN 12/05/20 12/05/20 12/05/20 Range/Units 18:03 18:03 18:48 WBC (4.5-11.0) K/uL RBC (3.30-5.50) M/uL Hgb (12.0-15.0) g/dL Hct (36.0-48.0) % MCV (80-98) fL MCH (27-31) pg MCHC (32-36) % Plt Count (150-400) K/uL Neut % (Auto) (36-66) % Lymph % (Auto) (24-44) % Parker % (Auto) (2-6) % Eos % (Auto) (2-4) % Baso % (Auto) (0-1) % Sodium (140-148) mmol/L Potassium (3.6-5.2) mmol/L Chloride (100-108) mmol/L Carbon Dioxide (21-32) mmol/L Anion Gap (5.0-14.0) mmol/L BUN (7-18) mg/dL Creatinine (0.6-1.0) mg/dL Est Cr Clr Drug Dosing mL/min Estimated GFR (MDRD) (>60) Glucose (74-106) mg/dL Lactic Acid 0.7 (0.4-2.0) mmol/L Calcium (8.5-10.1) mg/dL Total Bilirubin (0.2-1.0) mg/dL AST (15-37) U/L ALT (12-78) U/L Alkaline Phosphatase (46-116) U/L Ammonia (11-32) umol/L Total Protein (6.4-8.2) g/dL Albumin (3.4-5.0) g/dL Globulin (2.3-3.5) g/dL Albumin/Globulin Ratio (1.2-2.2) Urine Color Yellow (YELLOW) Urine Appearance Turbid A (CLEAR) Urine pH 5.5 (5.0-8.0) Ur Specific Imperial 1.025 (1.008-1.030) Urine Protein 30 H (NEGATIVE) mg/dL Urine Glucose (UA) Negative (NEGATIVE) mg/dL Urine Ketones 40 H (NEGATIVE) mg/dL Urine Occult Blood Negative (NEGATIVE) Urine Nitrite Negative (NEGATIVE) Urine Bilirubin Moderate H (NEGATIVE) Urine Urobilinogen 1.0 (0.2-1.0) EU/dL Ur Leukocyte Esterase Negative (NEGATIVE) Urine RBC 0-5 (0-5) Urine WBC 0-5 (0-5) Ur Epithelial Cells Many Amorphous Sediment Few Urine Bacteria Few Urine Mucus Few Urine Other See note Urine Opiates Screen (NEGATIVE) Ur Oxycodone Screen (NEGATIVE) Urine Methadone Screen (NEGATIVE) Ur Propoxyphene Screen (NEGATIVE) Ur Barbiturates Screen (NEGATIVE) Ur Tricyclics Screen (NEGATIVE) Ur Phencyclidine Scrn (NEGATIVE) Ur Amphetamine Screen (NEGATIVE) U Methamphetamines Scrn (NEGATIVE) Urine MDMA Screen (NEGATIVE) U Benzodiazepines Scrn (NEGATIVE) U Cocaine Metab Screen (NEGATIVE) U Marijuana (THC) Screen (NEGATIVE) Ethyl Alcohol < 3 mg/dL SARS CoV-2 RNA Rapid GILLIAN 06/01/21 06/01/21 Range/Units 18:48 19:13 WBC (4.5-11.0) K/uL RBC (3.30-5.50) M/uL Hgb (12.0-15.0) g/dL Hct (36.0-48.0) % MCV (80-98) fL MCH (27-31) pg MCHC (32-36) % Plt Count (150-400) K/uL Neut % (Auto) (36-66) % Lymph % (Auto) (24-44) % Parker % (Auto) (2-6) % Eos % (Auto) (2-4) % Baso % (Auto) (0-1) % Sodium (140-148) mmol/L Potassium (3.6-5.2) mmol/L Chloride (100-108) mmol/L Carbon Dioxide (21-32) mmol/L Anion Gap (5.0-14.0) mmol/L BUN (7-18) mg/dL Creatinine (0.6-1.0) mg/dL Est Cr Clr Drug Dosing mL/min Estimated GFR (MDRD) (>60) Glucose (74-106) mg/dL Lactic Acid (0.4-2.0) mmol/L Calcium (8.5-10.1) mg/dL Total Bilirubin (0.2-1.0) mg/dL AST (15-37) U/L ALT (12-78) U/L Alkaline Phosphatase (46-116) U/L Ammonia (11-32) umol/L Total Protein (6.4-8.2) g/dL Albumin (3.4-5.0) g/dL Globulin (2.3-3.5) g/dL Albumin/Globulin Ratio (1.2-2.2) Urine Color (YELLOW) Urine Appearance (CLEAR) Urine pH (5.0-8.0) Ur Specific Imperial (1.008-1.030) Urine Protein (NEGATIVE) mg/dL Urine Glucose (UA) (NEGATIVE) mg/dL Urine Ketones (NEGATIVE) mg/dL Urine Occult Blood (NEGATIVE) Urine Nitrite (NEGATIVE) Urine Bilirubin (NEGATIVE) Urine Urobilinogen (0.2-1.0) EU/dL Ur Leukocyte Esterase (NEGATIVE) Urine RBC (0-5) Urine WBC (0-5) Ur Epithelial Cells Amorphous Sediment Urine Bacteria Urine Mucus Urine Other Urine Opiates Screen Negative (NEGATIVE) Ur Oxycodone Screen Negative (NEGATIVE) Urine Methadone Screen Negative (NEGATIVE) Ur Propoxyphene Screen Negative (NEGATIVE) Ur Barbiturates Screen Negative (NEGATIVE) Ur Tricyclics Screen Negative (NEGATIVE) Ur Phencyclidine Scrn Negative (NEGATIVE) Ur Amphetamine Screen Negative (NEGATIVE) U Methamphetamines Scrn Negative (NEGATIVE) Urine MDMA Screen Negative (NEGATIVE) U Benzodiazepines Scrn Negative (NEGATIVE) U Cocaine Metab Screen Negative (NEGATIVE) U Marijuana (THC) Screen Negative (NEGATIVE) Ethyl Alcohol mg/dL SARS CoV-2 RNA Rapid GILLIAN Negative - Re-Assessments/Exams Free Text/Narrative Re-Assessment/Exam: 12/05/20 19:35 I reviewed the labs on Crystal with a leukocyte count of 8.7, hemoglobin of 11.9, hematocrit of 37.2, and platelet count of 177,000. The patient has a normal comprehensive metabolic panel with a sodium of 140, potassium 3.7, chloride of 103, bicarbonate of 24, BUN of 12, and creatinine of 0.8 with a glucose of 102. Her lactic acid is negative at 0.7. Her ammonia is less than 11 with an ethanol less than 3. Her AST is 74 with an ALT of 35 and alkaline phosphatase of 204. Urinalysis and drug screen are both negative. Her Covid is also negative. I tried to initiate an admission here, however, there are no beds available for the patient and her confused state so we will likely need to transfer her elsewhere. I discussed the case with Dr. Coley who recommended contacting Dr. Newby at [facility]. 12/05/20 19:45 I discussed the case with Dr. Newby at [facility] who accepts the patient in transfer for admission there. She will be admitted to the ICU there for close observation and placement. We will have [facility] transfer her. Departure - Departure Time of Disposition: 20:00 Disposition: DC/Tfer to [facility] 02 Clinical Impression: Alcoholic encephalopathy, Status post ORIF of fracture of ankle, Unable to care for self, Confabulation, Alcoholic peripheral neuropathy Mental status alteration Qualifiers: Altered mental status type: delirium Qualified Code(s): R41.0 - Disorientation, unspecified - Discharge Information Referrals: PCP,None [Primary Care Provider] - Forms: ED Department Discharge Sepsis Event Note (ED) - Evaluation Sepsis Screening Result: No Definite Risk - Focused Exam Vital Signs: Vital Signs Temp Pulse Resp BP Pulse Ox 12/05/20 18:47 114 H 139/84 97 12/05/20 15:39 36.7 C 120 H 18 135/86 98 - Problem List & Annotations (1) Bimalleolar ankle fracture SNOMED Code(s): 374490133 Code(s): S82.843A - DISPLACED BIMALLEOLAR FRACTURE OF UNSP LOWER LEG, INIT Status: Acute Priority: Medium Current Visit: No Qualifiers: Encounter type: initial encounter Fracture type: closed Laterality: left Qualified Code(s): S82.842A - Displaced bimalleolar fracture of left lower leg, initial encounter for closed fracture (2) Alcoholic encephalopathy SNOMED Code(s): 873448696 Code(s): G31.2 - DEGENERATION OF NERVOUS SYSTEM DUE TO ALCOHOL; F10.20 - ALCOHOL DEPENDENCE, UNCOMPLICATED Status: Chronic Priority: Medium Current Visit: Yes (3) Status post ORIF of fracture of ankle SNOMED Code(s): 822455846 Code(s): Z98.890 - OTHER SPECIFIED POSTPROCEDURAL STATES; Z87.81 - PERSONAL HISTORY OF (HEALED) TRAUMATIC FRACTURE Status: Acute Priority: Medium Current Visit: No (4) Alcohol abuse SNOMED Code(s): 68957371 Code(s): F10.10 - ALCOHOL ABUSE, UNCOMPLICATED Status: Chronic Priority: High Current Visit: No (5) Alcoholic peripheral neuropathy Status: Chronic Priority: High Current Visit: Yes (6) Mental status alteration SNOMED Code(s): 736148981 Code(s): R41.82 - ALTERED MENTAL STATUS, UNSPECIFIED Status: Acute Priority: High Current Visit: Yes Qualifiers: Altered mental status type: delirium Qualified Code(s): R41.0 - Disorientation, unspecified (7) Confabulation SNOMED Code(s): 09004037 Code(s): R41.3 - OTHER AMNESIA Status: Acute Priority: High Current Visit: Yes (8) Unable to care for self SNOMED Code(s): 584171832, [id number] Code(s): Z78.9 - OTHER SPECIFIED HEALTH STATUS Status: Acute Priority: High Current Visit: Yes - Problem List Review Problem List Initiated/Reviewed/Updated: Yes - My Orders Last 24 Hours: My Active Orders 12/05/20 19:05 Isolation [COMM] Stat - Assessment/Plan Last 24 Hours: My Active Orders 12/05/20 19:05 Isolation [COMM] Stat
[2020-12-05 20:13] VITALS: BP 136/88; PULSE 124
== END 2020-12-05 21:07 ==
LOC: JP.ED 15:36
DX: G31.2 Degeneration of nervous system due to alcohol (principal); G62.1 Alcoholic polyneuropathy; F10.20 Alcohol dependence, uncomplicated; F03.90 Unspecified dementia, unspecified severity, without behavioral disturbance, psychotic disturbance, mood disturbance, and anxiety; Z98.890 Other specified postprocedural states; Z74.1 Need for assistance with personal care; Z20.822 Contact with and (suspected) exposure to COVID-19
CPT/HCPCS: 36415; 80053; 80305-QW; 80307; 81001; 82140; 83605; 85025; 99285; U0002

== ENCOUNTER 2021-05-02 09:01 | Day surgery (SDC) | payer MEDICAID ==
[~2021-05-02 09:01] MED LIST: Bupivacaine 0.5% 50 ML MDV ONE; Dexamethasone 4 MG/ML SDV ONE; Glycopyrrolate 0.2 MG/ML 5 ML MDV ONE; Lidocaine 1% 50 ML MDV ONE; Neostigmine Methylsulfate 1 MG/ML 5 ML Syringe ONE; Ondansetron 4 MG/2 ML SDV ONE; Propofol 200 MG/20 ML SDV ONE; Rocuronium 50 MG/5 ML Vial ONE; Succinylcholine 200 MG/10 ML MDV ONE; fentaNYL 250 MCG/5 ML SDV ONE
[2021-05-02] MEDS ORDERED: Lactated Ringers 1,000 ML IV SCH (09:30)
[2021-05-02] MEDS ORDERED: ceFAZolin 1 GM in Premix Bag 1 BAG IV ONE (09:30)
[2021-05-02] MEDS ORDERED: Nozin Nasal Sanitizer NASBOTH ONE (09:30)
[2021-05-02] MEDS ORDERED: fentaNYL 100 MCG/2 ML SDV ONE (11:49)
[2021-05-02] MEDS ORDERED: Sugammadex Sodium 200 MG/2 ML VIAL ONE (11:53)
[2021-05-02] MEDS ORDERED: Lidocaine 1% 50 ML MDV ONE (12:12)
[2021-05-02 13:12] VITALS: BP 137/87; PULSE 71
[2021-05-02] MEDS ORDERED: traMADol 50 MG Tab PO ONE (14:00)
--- NOTE | 2021-05-02 22:49 | OR ---
DATE OF PROCEDURE: 05/02/2021 SURGEON: Khadar Byrd MD PREOPERATIVE DIAGNOSIS: Retained painful hardware, left ankle. POSTOPERATIVE DIAGNOSIS: Retained painful hardware, left ankle. PROCEDURE: Removal of hardware, left ankle. RIFLE CASE REPAIRER: NATASHA Tijerina ANESTHESIA: General. INDICATIONS: Crystal is a 46-year-old female who sustained a bimalleolar ankle fracture several months ago. She has gone on to heal the fracture and is now having pain and tenderness over the hardware. She wished to have it removed. She now presents for removal of the fibular plate and screws as well as the medial malleolar screw. Risks, benefits, potential complications of the procedure were discussed. DESCRIPTION OF PROCEDURE: After adequate anesthesia was obtained, a tourniquet was placed about the upper calf, and the lower leg and foot were prepped and draped in sterile fashion. Leg was exsanguinated and tourniquet inflated to 250 mmHg pressure. A portion of the medial incision was utilized directly over the screw. The screw was exposed sharply and removed without difficulty. Attention was turned to the lateral ankle. Previous incision was utilized, carried down through the subcutaneous tissues, and the scar tissue over the lateral plate was divided. Screws were exposed and removed without difficulty. The plate was then loosened from the fibula and removed. The fibula was well healed. There was no evidence of complication. Small scar tissue and bony protuberances through the plate holes were debrided with a rongeur. Wound was irrigated and then closed with 0 Vicryl in the deep layer, 2-0 Vicryl, and running 3-0 Monocryl. Medial incision was closed with 2-0 Vicryl and 3-0 Monocryl, and Steri-Strips were applied on both incisions. Incisions were infiltrated with 0.5% Marcaine and a sterile dressing was applied. The patient tolerated procedure well. There were no complications. Taken from the operating room in stable condition. Khadar Byrd MD /[id number]
== END 2021-05-02 13:53 | disposition home or self-care (01) ==
LOC: JP.SDS 09:01
PROVIDERS: ATTEND Specialist
DX: T84.84XA Pain due to internal orthopedic prosthetic devices, implants and grafts, initial encounter (principal); E78.5 Hyperlipidemia, unspecified; N18.6 End stage renal disease; Z99.2 Dependence on renal dialysis; Z98.890 Other specified postprocedural states
CPT/HCPCS: 20680; 36415; 80053; 85027; A9270; J0330; J0690; J1100; J2405; J2704; J2710; J3010; J3490; J7120; J2001

== ENCOUNTER 2021-08-08 05:20 | Inpatient (IN) | payer MEDICAID ==
[2021-08-08] MEDS ORDERED: Acetaminophen 500 MG Tab PO ONE (05:45)
[2021-08-08] MEDS ORDERED: Dextrose 5%-Lactated Ringers 1,000 ML IV SCH (06:30)
[2021-08-08] MEDS ORDERED: Isosulfan Blue 5 ML SDV ONE (06:31)
[2021-08-08] MEDS ORDERED: fentaNYL 250 MCG/5 ML SDV ONE ×2 (07:12→08:07)
[2021-08-08] MEDS ORDERED: Propofol 200 MG/20 ML SDV ONE (07:13)
[2021-08-08] MEDS ORDERED: Ondansetron 4 MG/2 ML SDV ONE (07:13)
[2021-08-08] MEDS ORDERED: Rocuronium 50 MG/5 ML Vial ONE (07:13)
[2021-08-08] MEDS ORDERED: Glycopyrrolate 0.2 MG/ML 5 ML MDV ONE (07:13)
[2021-08-08] MEDS ORDERED: Succinylcholine 200 MG/10 ML MDV ONE (07:13)
[2021-08-08] MEDS ORDERED: Dexamethasone 4 MG/ML SDV ONE (07:13)
[2021-08-08] MEDS ORDERED: Neostigmine Methylsulfate 1 MG/ML 5 ML Syringe ONE (07:13)
[2021-08-08] MEDS ORDERED: ceFAZolin 2 GM in Premix Bag 1 BAG IV ONE (07:15)
[2021-08-08] MEDS ORDERED: Ketamine 17 MG in Sodium Chloride 0.9% 19.83 ML IV SCH (07:30)
[2021-08-08] MEDS ORDERED: Ketamine 500 MG/5 ML MDV IV SCH (07:30)
[2021-08-08] MEDS ORDERED: Ondansetron 4 MG/2 ML SDV IVPUSH PRN ×2 (07:39→11:00)
[2021-08-08] MEDS ORDERED: Naloxone 0.4 MG/ML SDV IVPUSH PRN (07:39)
[2021-08-08] MEDS ORDERED: HYDROmorphone/Normal Saline 6 MG/30 ML PCA Vial IV PRN ×2 (07:39→08:03)
[2021-08-08] MEDS ORDERED: diphenhydrAMINE 25 MG Cap PO PRN (07:39)
[2021-08-08] MEDS ORDERED: diphenhydrAMINE 50 MG/ML SDV IVPUSH PRN (07:39)
[2021-08-08] MEDS ORDERED: Naloxone 0.4 MG/ML SDV IV PRN (08:00)
[2021-08-08] MEDS ORDERED: Lactated Ringers 1,000 ML ONE (08:44)
[2021-08-08] MEDS ORDERED: Cyclobenzaprine 10 MG Tab PO PRN (10:25)
[2021-08-08] MEDS: Dextrose 5%-Lactated Ringers 1,000 ML with MVI, Adult with Vitamin K 10 ML, Thiamine 20... IV SCH ×8 (10:51→19:52)
[2021-08-08] MEDS ORDERED: hydrOXYzine HCL 100 MG/2 ML SDV IM PRN (11:00)
[2021-08-08] MEDS: Acetaminophen 500 MG Tab PO SCH ×3 (11:21→23:59)
[2021-08-08] MEDS: Ibuprofen 600 MG Tab PO SCH ×3 (11:22→22:05)
[2021-08-08] MEDS: ceFAZolin 2 GM in Premix Bag 1 BAG IV SCH ×2 (13:32→22:05)
[2021-08-09] MEDS: Ibuprofen 600 MG Tab PO SCH ×4 (04:10→22:17)
[2021-08-09] MEDS: Dextrose 5%-Lactated Ringers 1,000 ML with MVI, Adult with Vitamin K 10 ML, Thiamine 20... IV SCH ×16 (04:11→23:40)
[2021-08-09] MEDS: ceFAZolin 2 GM in Premix Bag 1 BAG IV SCH (05:43)
[2021-08-09] MEDS: Acetaminophen 500 MG Tab PO SCH ×4 (05:44→23:39)
[2021-08-09] MEDS ORDERED: HYDROmorphone 2 MG Tab PO PRN (06:53)
[2021-08-09] MEDS: Pantoprazole 40 MG Tab.CR PO SCH (07:56)
[2021-08-10] MEDS: Ibuprofen 600 MG Tab PO SCH (03:15)
[2021-08-10] MEDS: Acetaminophen 500 MG Tab PO SCH (06:00)
[2021-08-10 07:22] VITALS: PULSE 85
[2021-08-10] MEDS: Pantoprazole 40 MG Tab.CR PO SCH (07:38)
[2021-08-10 07:40] VITALS: BP 136/67
== END 2021-08-10 09:00 | disposition home or self-care (01) | DRG 582 ==
LOC: JP.SDS 05:20 → EDSTATUS 07:15 → JP.ICU 09:10
PROVIDERS: ADMIT Surgery; ATTEND Surgery
PROC: 0HTV0ZZ Resection of Bilateral Breast, Open Approach (ICD-10-PCS; principal; 2021-08-08)
DX: D05.12 Intraductal carcinoma in situ of left breast (principal); N18.6 End stage renal disease; E78.5 Hyperlipidemia, unspecified; K21.9 Gastro-esophageal reflux disease without esophagitis; E83.42 Hypomagnesemia; D69.6 Thrombocytopenia, unspecified; D64.9 Anemia, unspecified; Z98.890 Other specified postprocedural states; Z80.3 Family history of malignant neoplasm of breast; Z80.49 Family history of malignant neoplasm of other genital organs; Z80.0 Family history of malignant neoplasm of digestive organs; Z79.899 Other long term (current) drug therapy
CPT/HCPCS: 36415; 80053; 83735; 84100; 84703; 85027; 86300; 97161-GP; 97535-GP; A9270-GY; J0330; J0690; J1100; J1170; J2020; J2405; J2704; J2710; J3010; J3411; J3490; J7120; J7121; Q9968

== ENCOUNTER 2022-02-04 06:25 | Day surgery (SDC) | payer MEDICAID ==
[2022-02-04] MEDS ORDERED: Bupivacaine 0.5%/EPINEPHrine 1:200,000 50 ML MDV ONE (06:44)
[2022-02-04] MEDS: Dextrose 5%-Lactated Ringers 1,000 ML IV SCH (06:51)
[2022-02-04] MEDS: Acetaminophen 500 MG Tab PO ONE (06:53)
[2022-02-04] MEDS ORDERED: Ketamine 17 MG in Sodium Chloride 0.9% 19.83 ML IV SCH (07:00)
[2022-02-04] MEDS ORDERED: Ketamine 500 MG/5 ML MDV IV SCH (07:00)
[2022-02-04] MEDS ORDERED: Rocuronium 50 MG/5 ML Vial ONE (07:10)
[2022-02-04] MEDS ORDERED: Ondansetron 4 MG/2 ML SDV ONE (07:10)
[2022-02-04] MEDS ORDERED: Succinylcholine 200 MG/10 ML MDV ONE (07:10)
[2022-02-04] MEDS ORDERED: fentaNYL 250 MCG/5 ML SDV ONE ×2 (07:10→11:16)
[2022-02-04] MEDS ORDERED: Dexamethasone 4 MG/ML SDV ONE (07:10)
[2022-02-04] MEDS ORDERED: Propofol 200 MG/20 ML SDV ONE (07:10)
[2022-02-04] MEDS ORDERED: Glycopyrrolate 0.2 MG/ML 5 ML MDV ONE (07:10)
[2022-02-04] MEDS ORDERED: Neostigmine Methylsulfate 1 MG/ML 5 ML Syringe ONE (07:10)
[2022-02-04] MEDS: ceFAZolin 2 GM in Premix Bag 1 BAG IV ONE (07:45)
[2022-02-04] MEDS: Linezolid 600 MG/300 ML Premix Bag IRR ONE (08:40)
[2022-02-04] MEDS: Bupivacaine 0.5% 30 ML SDV ONE (09:02)
[2022-02-04] MEDS: Lidocaine 1% with EPINEPHrine 1:100,000 50 ML MDV ONE (09:02)
[2022-02-04] MEDS: Mupirocin Oint 22 GM Tube ONE (09:03)
[2022-02-04] MEDS ORDERED: Lactated Ringers 1,000 ML ONE (09:24)
[2022-02-04 11:27] VITALS: BP 118/71; PULSE 71
== END 2022-02-04 11:55 | disposition home or self-care (01) ==
LOC: JP.SDS 06:25
PROVIDERS: ATTEND Surgery
DX: T85.848A Pain due to other internal prosthetic devices, implants and grafts, initial encounter (principal); L90.5 Scar conditions and fibrosis of skin; K21.9 Gastro-esophageal reflux disease without esophagitis; Z79.899 Other long term (current) drug therapy; Z79.891 Long term (current) use of opiate analgesic; Z98.890 Other specified postprocedural states; Z88.9 Allergy status to unspecified drugs, medicaments and biological substances
CPT/HCPCS: 11406; 12035; 81025; 88304; A9270; J0330; J0690; J1100; J2020; J2405; J2704; J2710; J3010; J3490; J7120; J7121

== ENCOUNTER 2024-04-16 06:44 | Day surgery (SDC) | payer MEDICAID ==
[2024-04-16] MEDS ORDERED: Midazolam 1 MG/ML 2 ML SDV ONE (07:02)
[2024-04-16] MEDS ORDERED: Propofol 200 MG/20 ML SDV ONE ×2 (07:02→08:22)
[2024-04-16] MEDS ORDERED: fentaNYL 50 MCG/ML SDV ONE (07:02)
[2024-04-16] MEDS: Lactated Ringers 1,000 ML IV SCH (07:53)
[2024-04-16 10:15] VITALS: BP 136/84; PULSE 79
== END 2024-04-16 10:20 | disposition home or self-care (01) ==
LOC: JP.SDS 06:44
PROVIDERS: ATTEND Family Medicine
DX: Z12.11 Encounter for screening for malignant neoplasm of colon (principal); C18.7 Malignant neoplasm of sigmoid colon; D12.4 Benign neoplasm of descending colon; F17.200 Nicotine dependence, unspecified, uncomplicated
CPT/HCPCS: 45380; 88305; 88341; 88342; J2250; J2704; J3010; J7120; 00811-QZ

== ENCOUNTER 2024-06-14 06:15 | Day surgery (SDC) | payer MEDICAID ==
[2024-06-14] MEDS ORDERED: fentaNYL 50 MCG/ML SDV ONE (07:09)
[2024-06-14] MEDS ORDERED: Propofol 200 MG/20 ML SDV ONE ×2 (07:09→07:38)
[2024-06-14] MEDS ORDERED: Midazolam 1 MG/ML 2 ML SDV ONE (07:09)
[2024-06-14] MEDS: Lactated Ringers 1,000 ML IV SCH (07:10)
[2024-06-14 08:47] VITALS: PULSE 71
[2024-06-14 09:11] VITALS: BP 136/80
[2024-06-15] MEDS ORDERED: Dextrose 5%-Lactated Ringers 1,000 ML IV SCH (07:30)
[2024-06-15] MEDS ORDERED: Heparin Sodium 5,000 Units/ML Vial SUBCUT ONE (08:00)
[2024-06-15] MEDS ORDERED: cefOXitin 2 GM in Sodium Chloride 0.9% 50 ML IV ONE (08:30)
== END 2024-06-14 09:30 | disposition home or self-care (01) ==
LOC: JP.SDS 06:15
PROVIDERS: ATTEND Surgery
DX: C18.7 Malignant neoplasm of sigmoid colon (principal); D69.6 Thrombocytopenia, unspecified; Z79.899 Other long term (current) drug therapy; Z86.0100 Personal history of colon polyps, unspecified
CPT/HCPCS: 36415; 45335; 86850; 86900; 86901; J2250; J2704; J3010; J7120; 00731-QZ

== ENCOUNTER 2024-06-15 06:44 | Inpatient (IN) | payer MEDICAID ==
[2024-06-15] MEDS: Dextrose 5%-Lactated Ringers 1,000 ML IV SCH (07:46)
[2024-06-15] MEDS: Heparin Sodium 5,000 Units/ML Vial SUBCUT ONE (08:01)
[2024-06-15] MEDS ORDERED: Succinylcholine 200 MG/10 ML MDV ONE (08:06)
[2024-06-15] MEDS ORDERED: Neostigmine Methylsulfate 10 MG/10 ML MDV ONE (08:06)
[2024-06-15] MEDS ORDERED: fentaNYL 250 MCG/5 ML SDV ONE ×3 (08:06→09:35)
[2024-06-15] MEDS ORDERED: Glycopyrrolate 0.2 MG/ML 5 ML MDV ONE (08:06)
[2024-06-15] MEDS ORDERED: Propofol 200 MG/20 ML SDV ONE (08:06)
[2024-06-15] MEDS ORDERED: Ondansetron 4 MG/2 ML SDV ONE (08:06)
[2024-06-15] MEDS ORDERED: Rocuronium 50 MG/5 ML Vial ONE ×3 (08:06→10:56)
[2024-06-15] MEDS ORDERED: Dexamethasone 4 MG/ML SDV ONE (08:06)
[2024-06-15] MEDS: cefOXitin 2 GM in Sodium Chloride 0.9% 50 ML IV ONE (09:56)
[2024-06-15] MEDS: Bupivacaine 0.5%/EPINEPHrine 1:200,000 50 ML MDV ONE (10:01)
[2024-06-15] MEDS ORDERED: Lactated Ringers 1,000 ML ONE (10:32)
[2024-06-15] MEDS ORDERED: Ketorolac 30 MG/ML SDV ONE (12:52)
[2024-06-15] MEDS ORDERED: Sugammadex Sodium 200 MG/2 ML VIAL IV ONE (13:07)
[2024-06-15] MEDS ORDERED: Naloxone 0.4 MG/ML SDV IVPUSH PRN (13:45)
[2024-06-15] MEDS ORDERED: Ondansetron 4 MG/2 ML SDV IVPUSH PRN (13:47)
[2024-06-15] MEDS ORDERED: Acetaminophen 325 MG Tab PO SCH (14:00)
[2024-06-15] MEDS: HYDROmorphone 0.5 MG/0.5 ML Syringe IVPUSH PRN (14:35)
[2024-06-15] MEDS: oxyCODONE 5 MG Tab PO PRN (21:20)
[2024-06-15] MEDS: Acetaminophen 500 MG Tab PO SCH (21:20)
[2024-06-15] MEDS: Sodium Chloride 0.9% 1,000 ML IV SCH (22:19)
[2024-06-16 05:20] LABS: EOSINOPHILS PERCENT AUTO 0.1 % (0.0-5.4); HEMATOCRIT 28.3 % (34.3-46.0); HEMOGLOBIN 9.7 g/dL (11.2-15.5); IMMATURE GRAN ABSOLUTE AUTO 0.05 K/uL (0.00-0.23); IMMATURE GRAN PERCENT AUTO 0.6 % (0.0-0.7); LYMPHOCYTES PERCENT AUTO 10.1 % (11.4-47.7); MEAN CORPUSCULAR HEMOGLOBIN 31.9 pg (31.6-35.5); MEAN CORPUSCULAR HGB CONC 34.3 g/dL (31.6-35.5); MEAN CORPUSCULAR VOLUME 93.1 fL (81.4-99.0); MONOCYTES ABSOLUTE AUTO 0.76 K/uL (0.20-0.90); MONOCYTES PERCENT AUTO 9.6 % (3.3-12.6); NEUTROPHILS PERCENT AUTO 79.6 % (40.0-78.1); PLATELET COUNT,PLT 73 K/uL (130-375); RED BLOOD CELL COUNT 3.04 M/uL (3.77-5.24); WHITE BLOOD CELL COUNT,WBC 7.9 K/uL (3.2-11.0)
[2024-06-16] MEDS: Heparin Sodium 5,000 Units/ML Vial SUBCUT SCH (05:23)
[2024-06-16 05:36] LABS: A/G RATIO 0.7 (1.2-2.2); ALANINE AMINOTRANSFERASE,ALT 20 U/L (12-78); ALBUMIN 2.5 g/dL (3.4-5.0); ALKALINE PHOSPHATASE 59 U/L (46-116); ASPARTATE AMNIOTRANSFERASE,AST 12 U/L (15-37); BILIRUBIN TOTAL 0.7 mg/dL (0.2-1.0); BLOOD UREA NITROGEN,BUN 13 mg/dL (7-18); CALCIUM 8.1 mg/dL (8.5-10.1); CARBON DIOXIDE,CO2 23 mmol/L (21-32); CHLORIDE,CL 107 mmol/L (100-108); EST CRCL DRUG DOSING (CG) 59.89 mL/min; ESTIMATED GFR 68 mL/min (>60); GLUCOSE RANDOM 127 mg/dL (74-106); POTASSIUM,K 3.5 mmol/L (3.6-5.2); PROTEIN TOTAL,TP 6.1 g/dL (6.4-8.2); SODIUM,NA 138 mmol/L (140-148)
[2024-06-16 05:37] LABS: ANION GAP 11.5 mmol/L (5.0-14.0)
[2024-06-16 05:38] LABS: EOSINOPHILS ABSOLUTE AUTO 0.01 K/uL (0.00-0.40)
[2024-06-17 05:50] LABS: BASOPHILS ABSOLUTE AUTO 0.03 K/uL (0.00-0.10); BASOPHILS PERCENT AUTO 0.6 % (0.1-1.3); EOSINOPHILS ABSOLUTE AUTO 0.11 K/uL (0.00-0.40); HEMATOCRIT 26.7 % (34.3-46.0); HEMOGLOBIN 9.4 g/dL (11.2-15.5); IMMATURE GRAN PERCENT AUTO 0.4 % (0.0-0.7); LYMPHOCYTES ABSOLUTE AUTO 1.09 K/uL (0.8-3.3); MEAN CORPUSCULAR HGB CONC 35.2 g/dL (31.6-35.5); MEAN CORPUSCULAR VOLUME 93.7 fL (81.4-99.0); MONOCYTES ABSOLUTE AUTO 0.54 K/uL (0.20-0.90); MONOCYTES PERCENT AUTO 9.9 % (3.3-12.6); NEUTROPHILS ABSOLUTE AUTO 3.65 K/uL (1.0-7.6); NEUTROPHILS PERCENT AUTO 67.1 % (40.0-78.1); PLATELET COUNT,PLT 65 K/uL (130-375); RED BLOOD CELL COUNT 2.85 M/uL (3.77-5.24); WHITE BLOOD CELL COUNT,WBC 5.4 K/uL (3.2-11.0)
[2024-06-17 05:51] LABS: IMMATURE GRAN ABSOLUTE AUTO 0.02 K/uL (0.00-0.23)
[2024-06-17 06:05] LABS: CALCIUM 8.2 mg/dL (8.5-10.1); CREATININE 0.8 mg/dL (0.6-1.0); EST CRCL DRUG DOSING (CG) 74.86 mL/min; POTASSIUM,K 3.2 mmol/L (3.6-5.2)
[2024-06-17 06:18] LABS: ANION GAP 14.2 mmol/L (5.0-14.0)
[2024-06-17] MEDS: Magnesium Sulfate/Water Premix 2 GM in Premix Bag 1 BAG IV SCH (10:13)
[2024-06-18] MEDS: Sodium Chloride 0.9% 1,000 ML IV SCH (00:48)
[2024-06-18 05:01] LABS: HEMATOCRIT 25.4 % (34.3-46.0); HEMOGLOBIN 8.8 g/dL (11.2-15.5); MEAN CORPUSCULAR HEMOGLOBIN 32.4 pg (31.6-35.5); MEAN CORPUSCULAR HGB CONC 34.6 g/dL (31.6-35.5); MEAN CORPUSCULAR VOLUME 93.4 fL (81.4-99.0); RED BLOOD CELL COUNT 2.72 M/uL (3.77-5.24); WHITE BLOOD CELL COUNT,WBC 4.6 K/uL (3.2-11.0)
[2024-06-18 05:12] LABS: CALCIUM 8.3 mg/dL (8.5-10.1); CREATININE 0.8 mg/dL (0.6-1.0); EST CRCL DRUG DOSING (CG) 74.86 mL/min; POTASSIUM,K 3.6 mmol/L (3.6-5.2)
[2024-06-18 05:17] LABS: ANION GAP 14.6 mmol/L (5.0-14.0)
[2024-06-18] MEDS ORDERED: Sodium Chloride 0.9% 10 ML Syringe IV PRN (10:48)
[2024-06-18] MEDS: Potassium Chloride 20 MEQ Tab.ER PO ONE (10:53)
[2024-06-18] MEDS: Simethicone 125 MG Tab.Chew PO PRN (20:50)
[2024-06-19 03:15] LABS: BASOPHILS ABSOLUTE AUTO 0.04 K/uL (0.00-0.10); BASOPHILS PERCENT AUTO 0.7 % (0.1-1.3); EOSINOPHILS PERCENT AUTO 3.6 % (0.0-5.4); HEMATOCRIT 27.8 % (34.3-46.0); HEMOGLOBIN 9.8 g/dL (11.2-15.5); IMMATURE GRAN ABSOLUTE AUTO 0.06 K/uL (0.00-0.23); IMMATURE GRAN PERCENT AUTO 1.1 % (0.0-0.7); LYMPHOCYTES ABSOLUTE AUTO 1.12 K/uL (0.8-3.3); LYMPHOCYTES PERCENT AUTO 20.2 % (11.4-47.7); MEAN CORPUSCULAR HEMOGLOBIN 32.5 pg (31.6-35.5); MEAN CORPUSCULAR HGB CONC 35.3 g/dL (31.6-35.5); MEAN CORPUSCULAR VOLUME 92.1 fL (81.4-99.0); MONOCYTES PERCENT AUTO 12.6 % (3.3-12.6); NEUTROPHILS ABSOLUTE AUTO 3.42 K/uL (1.0-7.6); NEUTROPHILS PERCENT AUTO 61.8 % (40.0-78.1); PLATELET COUNT,PLT 94 K/uL (130-375); RED BLOOD CELL COUNT 3.02 M/uL (3.77-5.24); WHITE BLOOD CELL COUNT,WBC 5.5 K/uL (3.2-11.0)
[2024-06-19 03:28] LABS: ANION GAP 9.4 mmol/L (5.0-14.0); CALCIUM 8.9 mg/dL (8.5-10.1); CREATININE 0.9 mg/dL (0.6-1.0); EST CRCL DRUG DOSING (CG) 66.54 mL/min; POTASSIUM,K 4.4 mmol/L (3.6-5.2)
[2024-06-19] MEDS: Bisacodyl 10 MG Supp RECTAL PRN (08:33)
[2024-06-19 12:37] VITALS: BP 124/66; PULSE 89
== END 2024-06-19 16:17 | disposition home or self-care (01) | DRG 331 ==
LOC: INTOOBSV 06:44 → JP.MS 06:44 → OBSVTOIN 06-16 12:05
PROVIDERS: ADMIT Surgery; ATTEND Surgery
PROC: 0DBN4ZZ Excision of Sigmoid Colon, Percutaneous Endoscopic Approach (ICD-10-PCS; principal; 2024-06-15 08:30)
DX: C18.7 Malignant neoplasm of sigmoid colon (principal); E78.5 Hyperlipidemia, unspecified; K21.9 Gastro-esophageal reflux disease without esophagitis; E87.6 Hypokalemia; D69.6 Thrombocytopenia, unspecified; F10.20 Alcohol dependence, uncomplicated; Z98.890 Other specified postprocedural states; Z88.8 Allergy status to other drugs, medicaments and biological substances
CPT/HCPCS: 36415; 80048; 80053; 83735; 84132; 85025; 85027; 88309; 96372; 99232; A9270-GY; G0378; J0330; J0694; J1100; J1171; J1596; J1644; J1885; J2405; J2704; J2710; J3010; J3475; J3480; J3490; J7030; J7120; J7121